=== PATIENT | female | born 1985 | race Caucasian/White ===

== ENCOUNTER 2018-04-29 04:51 | Emergency (ER) | payer OTHER ==
[~2018-04-29] VITALS: Ht 162.6 cm; Wt 87.1 kg
[~2018-04-29 04:51] MED LIST: ACYCLOVIR800 MG; AMLODIPINE BESYL5 MG; CORTISPORIN-TC10 ML OTIC; HYDRALAZINE HCL10 MG PO; HYDROCHLOROTHIA25 MG PO; LABETALOL HCL100 MG PO; ZITHROMAX250 MG PO
[2018-04-29] MEDS ORDERED: PRENATE ELITE1 EAC2 PO (04:57)
[2018-04-29] MEDS ORDERED: TYLOPHEN500 MG PO (04:58)
[2018-04-29] MEDS ORDERED: PENICILLIN V P500 MG PO (05:19)
== END 2018-04-29 05:32 | disposition home or self-care (01) ==
LOC: ED 04:51
DX: K08.89 Other specified disorders of teeth and supporting structures (principal); I10 Essential (primary) hypertension; E11.9 Type 2 diabetes mellitus without complications; Z87.891 Personal history of nicotine dependence; Z79.899 Other long term (current) drug therapy
CPT/HCPCS: 99282

== ENCOUNTER 2018-05-25 16:06 | Emergency (ER) | payer OTHER ==
[~2018-05-25] VITALS: Ht 162.6 cm; Wt 87.1 kg
[~2018-05-25 16:06] MED LIST changes: +PENICILLIN V P500 MG PO; +PRENATE ELITE1 EAC2 PO; +TYLOPHEN500 MG PO
--- OUTSIDE RECORDS SUMMARY | 2018-05-25 16:08 | XMS ---
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 Katie has no Care Guidelines for this patient. [facility] ([facility] MO[facility] NOTE: Visits indicate total known visits. ED/C VISIT TRACKING (12 MO.) [facility]2018 [facility] COMPLAINT: - VAGINAL BLEEDING,5 WKS PREG 04/29/2018 04:51 JUDE Mott [place] TYPE: Emergency COMPLAINT: - POSS TOOTH INFECTION DIAGNOSES: - Other specified disorders of teeth and supporting structures - Essential (primary) hypertension - Type 2 diabetes mellitus without complications - Personal history of nicotine dependence - Other investigator utility bill complaints (current) drug therapy 02/22/2018 08:40 JU[facility] [place] TYPE: Emergency COMPLAINT: - EAR PAIN DIAGNOSES: - Essential (primary) hypertension - Type 2 diabetes mellitus without complications - Otitis media, unspecified, left ear - Other penitentiary (current) drug therapy - Otalgia, left ear INPATIENT VISIT TRACKING (12 MO.) No inpatient visits to display in this time frame [id number]
== END 2018-05-25 17:49 | disposition home or self-care (01) ==
LOC: ED 16:06
DX: N92.0 Excessive and frequent menstruation with regular cycle (principal); I10 Essential (primary) hypertension; E11.9 Type 2 diabetes mellitus without complications; Z88.0 Allergy status to penicillin; Z79.899 Other long term (current) drug therapy
CPT/HCPCS: 81001; 84703; 87077; 87088; 87186; 99284

== ENCOUNTER 2018-12-16 23:04 | Emergency (ER) | payer OTHER ==
[~2018-12-16] VITALS: Ht 162.6 cm; Wt 88.0 kg
[~2018-12-16 23:04] MED LIST changes: +CEPHALEXIN500 MG PO; +TRAMADOL HCL50 MG PO
--- OUTSIDE RECORDS SUMMARY | 2018-12-16 23:08 | XMS ---
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 Care History Medical/Surgical 05/26/2018 [facility] - Patient is currently established with [facility]. If patient is seen in the ED during business hours. Please contact CHWs at [facility]. Care Recommendation: This patient has had 5 or more Emergency Department visits in the last 12 months.\T\nbsp; Patient requires education on the scope and purpose of the ED as an acute care provider not a Primary Care Provider and should not be utilized for chronic conditions.\T\nbsp; These are guidelines and the provider should exercise clinical judgment when providing care. E.D. VISIT COUNT (12 MO.) [address] [facility] TOTAL 5 NOTE: Visits indicate total known visits. ED/UCC VISIT TRACKING (12 MO.) 12/16/2018 23:05 [facility]ott [place] TYPE: Emergency COMPLAINT: - DENTAL ISSUE 12/02/2018 22:35 JU[facility] Mott [place] TYPE: Emergency COMPLAINT: - DENTAL PROBLEM DIAGNOSES: - Other longterm (current) drug therapy - Other specified disorders of teeth and supporting structures - Type 2 diabetes mellitus without complications - Essential (primary) hypertension 05/25/2018 16:06 [facility]ott [place] TYPE: Emergency COMPLAINT: - VAGINAL BLEEDING,5 WKS PREG DIAGNOSES: - Abnormal uterine and vaginal bleeding, unspecified - Type 2 diabetes mellitus without complications - Excessive and frequent menstruation with regular cycle - Allergy status to penicillin - Essential (primary) hypertension - 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 04/29/2018 04:51 [facility] [place] TYPE: Emergency COMPLAINT: - POSS TOOTH INFECTION DIAGNOSES: - Other specified disorders of teeth and supporting structures - Essential (primary) hypertension - Type 2 diabetes mellitus without complications - Personal history of nicotine dependence - Other longterm (current) drug therapy 02/22/2018 08:40 [facility] [place] TYPE: Emergency COMPLAINT: - EAR PAIN DIAGNOSES: - Essential (primary) hypertension - Type 2 diabetes mellitus without complications - Otitis media, unspecified, left ear - Other longterm (current) drug therapy - Otalgia, left ear INPATIENT VISIT TRACKING (12 MO.) No inpatient visits to display in this time frame [id number]
[2018-12-16] MEDS ORDERED: TRAMADOL HCL50 MG PO (23:26)
[2018-12-16] MEDS ORDERED: CEPHALEXIN500 MG PO (23:26)
== END 2018-12-16 23:38 | disposition home or self-care (01) ==
LOC: ED 23:04
DX: K08.89 Other specified disorders of teeth and supporting structures (principal); I10 Essential (primary) hypertension; E11.9 Type 2 diabetes mellitus without complications; Z79.899 Other long term (current) drug therapy
CPT/HCPCS: 99282

== ENCOUNTER 2019-03-27 16:55 | Emergency (ER) | payer OTHER ==
[~2019-03-27] VITALS: Ht 162.6 cm; Wt 77.1 kg
[~2019-03-27 16:55] MED LIST changes: +AMOXICILLIN500 MG PO; +SUDOGEST30 MG PO
--- OUTSIDE RECORDS SUMMARY | 2019-03-27 16:58 | XMS ---
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 Care History Medical/Surgical 05/26/2018 [facility] - Patient is currently established with [facility]. If patient is seen in the ED during business hours. Please contact CHWs at [facility]. Care Recommendation: This patient has had 5 [...] providing care. E.D. VISIT COUNT (12 MO.) [address] [facility] TOTAL 6 NOTE: Visits indicate total known visits. ED/UCC VISIT TRACKING (12 MO.) 03/27/2019 16:57 [facility]ott [place] TYPE: Emergency COMPLAINT: - SINUS ISSUES 03/20/2019 00:46 [facility]ott [place] TYPE: Emergency COMPLAINT: - FACIAL PAIN DIAGNOSES: - Essential (primary) hypertension - Other fci (current) drug therapy - Allergy status to oth drug/meds/biol subst status - Acute sinusitis, unspecified - 1 Type 2 diabetes mellitus without complications 12/16/2018 23:05 [facility]ott [place] TYPE: Emergency COMPLAINT: - DENTAL ISSUE DIAGNOSES: - Essential (primary) hypertension - Other specified disorders of teeth and supporting structures - 1 Type 2 diabetes mellitus without complications - Other note taker (current) drug therapy 12/02/2018 22:35 [facility] [place] TYPE: Emergency COMPLAINT: - DENTAL PROBLEM DIAGNOSES: - Other note taker (current) drug therapy - Other specified disorders of teeth and supporting structures - 1 Type 2 diabetes mellitus without complications - Essential (primary) hypertension 05/25/2018 16:06 [facility]ott [place] TYPE: Emergency COMPLAINT: - VAGINAL BLEEDING,5 WKS PREG DIAGNOSES: - Abnormal uterine and vaginal bleeding, unspecified - 1 Type 2 diabetes mellitus without complications - Excessive and frequent menstruation with regular cycle - Allergy status to penicillin - Essential (primary) hypertension - Other fci (current) drug therapy 04/29/2018 04:[address] [facility] [place] TYPE: Emergency COMPLAINT: - POSS TOOTH INFECTION DIAGNOSES: - Other specified disorders of teeth and supporting structures - Essential (primary) hypertension - 1 Type 2 diabetes mellitus without complications - Personal history of nicotine dependence - Other fci (current) drug therapy INPATIENT VISIT TRACKING (12 MO.) No inpatient visits to display in this time frame [id number]
[2019-03-27] MEDS ORDERED: AMOX TR-K CLV1 EAC1 PO (17:10)
[2019-03-27] MEDS ORDERED: IBU800 MG PO (17:54)
[2019-03-27] MEDS ORDERED: NASAL DECONGEST30 MG PO (17:54)
== END 2019-03-27 18:04 | disposition home or self-care (01) ==
LOC: ED 16:55
DX: J01.90 Acute sinusitis, unspecified (principal); I10 Essential (primary) hypertension; E11.9 Type 2 diabetes mellitus without complications; Z88.8 Allergy status to other drugs, medicaments and biological substances; Z79.899 Other long term (current) drug therapy
CPT/HCPCS: 99283

== ENCOUNTER 2019-05-15 02:50 | Emergency (ER) | payer OTHER ==
[~2019-05-15] VITALS: Ht 162.6 cm; Wt 81.7 kg
[~2019-05-15 02:50] MED LIST changes: +AMOX TR-K CLV1 EAC1 PO; +IBU800 MG PO; +NASAL DECONGEST30 MG PO
[2019-05-15] MEDS ORDERED: AUGMENTIN 875-1 EACH PO (03:30)
== END 2019-05-15 03:51 | disposition home or self-care (01) ==
LOC: ED 02:50
DX: J01.90 Acute sinusitis, unspecified (principal); I10 Essential (primary) hypertension; E11.9 Type 2 diabetes mellitus without complications; Z88.8 Allergy status to other drugs, medicaments and biological substances; Z79.899 Other long term (current) drug therapy
CPT/HCPCS: 99283

== ENCOUNTER 2019-12-09 21:39 | Emergency (ER) | payer OTHER ==
[~2019-12-09] VITALS: Ht 162.6 cm; Wt 86.2 kg
[~2019-12-09 21:39] MED LIST changes: +AUGMENTIN 875-1 EACH PO
[2019-12-09] MEDS ORDERED: PENICILLIN V P500 MG PO (21:59)
[2019-12-09] MEDS ORDERED: NORCO 5-325 TA1 EACH PO (21:59)
== END 2019-12-09 22:11 | disposition home or self-care (01) ==
LOC: ED 21:39
DX: K08.89 Other specified disorders of teeth and supporting structures (principal); I10 Essential (primary) hypertension; E11.9 Type 2 diabetes mellitus without complications; Z88.8 Allergy status to other drugs, medicaments and biological substances
CPT/HCPCS: 99282

== ENCOUNTER 2019-12-20 06:13 | Emergency (ER) | payer OTHER ==
[~2019-12-20] VITALS: Ht 162.6 cm; Wt 86.2 kg
--- OUTSIDE RECORDS SUMMARY | ~2019-12-20 | XMS | Clinical Summary ---
Demographics + + + | Address | [address] | | | [place] [address] | + + + | Home Phone | | + + + | Preferred Language | Unknown | + + + | Marital Status | | + + + | Taoism Affiliation | Unknown | + + + | Race | White | + + + | Ethnic Group | Not or | + + + Author + + + | Author | [facility] | | | and [place] | + + + | Organization | [facility] | | | and [place] | + + + | Address | Unknown | + + + | Phone | Unavailable | + + + Care Team Providers + +------+ + | Care Garment Manufacturer Name | Role | Phone | + +------+ + | Ilya Sethi MD | PCP | | + +------+ + Allergies Not on File Medications Not on file Active Problems Not on file Social History + +-------+ +--------+------+ | Tobacco Use | Types | Packs/Day | Years | Date | | | | | Used | | + +-------+ +--------+------+ | Never Assessed | | | | | + +-------+ +--------+------+ + + + | Sex Assigned at | Date Recorded | | | | + + + | Not on file | | + + + Last Filed Vital Signs Not on file Plan of Treatment + + +-------+ + | Health Maintenance | Due Date | Last | Comments | | | | Done | | + + +-------+ + | Vaccine: | | | | | Dtap/Tdap/Td (1 - | 6 | | | | Tdap) | | | | + + +-------+ + | Cervical Cancer | | | | | Screening (Pap) | 7 | | | + + +-------+ + | Vaccine: Influenza | | | | | (#1) | 0 | | | + + +-------+ + Results Not on filefrom Last 3 Months"
--- OUTSIDE RECORDS SUMMARY | ~2019-12-20 | XMS | Encounter Summary ---
Demographics + + + | Address | [address] | | | [place] [address] | + + + | Home Phone | | + + + | Preferred Language | Unknown | + + + | Marital Status | | + + + | Worship Affiliation | Unknown | + + + | Race | White | + + + | Ethnic Group | Not or | + + + Author + + + | Author | [facility] | | | and [place] | + + + | Organization | [facility] | | | and [place] | + + + | Address | Unknown | + + + | Phone | Unavailable | + + + Care Team Providers + +------+ + | Care Dye Padder Operator Name | Role | Phone | + [...] 2016 | | [address] | MD Taye [address] | | | | | [address] | [address] | | | | | [place] | [place] [address] | | | | | [id number] | [phone] | | | | | [phone] | | | +--------+ + + + [...] | | | pressures of 0-5mmHg. MEASUREMENTS Hairspring Fabrication Supervisor: | | | DBS Authenticated by: Marcos Powell DO Report Date/Time: -- | | | [id number] | | + + + + + [...] venous pressures of 0-5mmHg. | | MEASUREMENTS Hairspring Fabrication Supervisor: DBSAuthenticated by: Marcos Ni | | Date/Time: -- [id number] IMPRESSION: 1. See Dictation. TDS, sinus | [...] | |MEASUREMENTS | | | | | |Hairspring Fabrication Supervisor: DBS | |Authenticated by: Marcos Powell DO | |Report Date/Time: -- [id number] | | | |IMPRESSION: | |1. See [...]
[~2019-12-20 06:13] MED LIST changes: +NORCO 5-325 TA1 EACH PO
--- OUTSIDE RECORDS SUMMARY | 2019-12-20 06:16 | XMS ---
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 - 2 Visits in 30 Days CARE PROVIDERS JEANNA GARCIA [facility] 05/26/2018-Current PHONE: [phone] ALAINA GARDNER Internal Medicine: Pulmonary Disease 12/03/2018-Current PHONE: Unknown Katie has no Care Guidelines for this patient. ERosibel VISIT COUNT (12 MO.) [address] [place] [address] TOTAL 5 NOTE: Visits indicate total known visits. ED/UCC VISIT TRACKING (12 MO.) 12/20/2019 06:13 [facility]ott [place] TYPE: Emergency COMPLAINT: - DENTAL PAIN 12/09/2019 21:40 [facility] [place] TYPE: Emergency COMPLAINT: - DENTAL PAIN DIAGNOSES: - Other specified disorders of teeth and supporting structures - Allergy status to other drugs, medicaments and biological sub - Type 2 diabetes mellitus without complications - Essential (primary) hypertension 05/15/2019 02:51 [facility] [place] TYPE: Emergency COMPLAINT: - SINUS AND MOUTH PAIN DIAGNOSES: - Type 2 diabetes mellitus without complications - Essential (primary) hypertension - Allergy status to other drugs, medicaments and biological sub - Acute sinusitis, unspecified - Other longterm (current) drug therapy 03/27/2019 16:57 [facility] [place] TYPE: Emergency COMPLAINT: - SINUS ISSUES DIAGNOSES: - Type 2 diabetes mellitus without complications - Acute sinusitis, unspecified - Allergy status to other drugs, medicaments and biological sub - Other longterm (current) drug therapy - Chronic sinusitis, unspecified - Essential (primary) hypertension 03/20/2019 00:46 [facility] [place] TYPE: Emergency COMPLAINT: - FACIAL PAIN DIAGNOSES: - Essential (primary) hypertension - Other longterm (current) drug therapy - Allergy status to other drugs, medicaments and biological sub - Acute sinusitis, unspecified - Type 2 diabetes mellitus without complications INPATIENT VISIT TRACKING (12 MO.) No inpatient visits to display in this time frame [id number]
[2019-12-20] MEDS ORDERED: ULTRAM50 MG PO (06:37)
[2019-12-20] MEDS ORDERED: CLEOCIN HCL300 MG PO (06:37)
== END 2019-12-20 06:45 | disposition home or self-care (01) ==
LOC: ED 06:13
DX: K08.89 Other specified disorders of teeth and supporting structures (principal); I10 Essential (primary) hypertension; E11.9 Type 2 diabetes mellitus without complications; Z88.8 Allergy status to other drugs, medicaments and biological substances
CPT/HCPCS: 99282

== ENCOUNTER 2020-02-14 06:53 | Emergency (ER) | payer OTHER ==
[~2020-02-14] VITALS: Ht 162.6 cm; Wt 86.2 kg
[~2020-02-14 06:53] MED LIST changes: +CLEOCIN HCL300 MG PO; +IBUPROFEN200 M1 PO; +TYLENOL325 MG PO; +ULTRAM50 MG PO
[2020-02-14] MEDS ORDERED: PENICILLIN V P500 MG PO (07:30)
== END 2020-02-14 07:41 | disposition home or self-care (01) ==
LOC: ED 06:53
DX: K02.9 Dental caries, unspecified (principal); I10 Essential (primary) hypertension; E11.9 Type 2 diabetes mellitus without complications; Z88.8 Allergy status to other drugs, medicaments and biological substances
CPT/HCPCS: 64400; 99282-25

== ENCOUNTER 2020-02-20 04:23 | Emergency (ER) | payer OTHER ==
[~2020-02-20] VITALS: Ht 162.6 cm; Wt 82.1 kg
--- OUTSIDE RECORDS SUMMARY | ~2020-02-20 | XMS | Encounter Summary ---
Demographics + + + | Address | [address] | | | [place] [address] | + + + | Home Phone | | + + + | Preferred Language | Unknown | + + + | Marital Status | | + + + | Tenriism Affiliation | Unknown | + + + | Race | White | + + + | Ethnic Group | Not or | + + + Author + + + | Author | [facility] [place] | | | and [place] | + + + | Organization | [facility] [place] | | | and [place] | + + + | Address | Unknown | + + + | Phone | Unavailable | + + + Care Team Providers + +------+ + | Care Yard Assistant Name | Role | Phone | + +------+ + | Ilya Sethi MD | PCP | | + +------+ + Encounter Details +--------+ + + + + | Date | Type | Department | Care Team | Description | +--------+ + + + + | 10/03/ | Orders Only | [facility] | Yuriy Muñoz | | | 2016 | | [address] | MD Taey [address] | | | | | [address] | [address] | | | | | [place] | [place] [address] | | | | | [id number] | [phone] | | | | | [phone] | | | +--------+ + + + + Social History + +-------+ +--------+------+ | Tobacco [...] on file | | + + + documented as of this encounter Plan of Treatment Not on filedocumented as of this encounter Procedures + +--------+ + + + | Procedure Name | Priori | Date/Time | Associated Diagnosis | Comments | | | ty | | | | + +--------+ + + + | ECHO INTERPRETATION | Routin | 10/04/2015 | | Results for this | | OF OUTSIDE FILMS | e | 1:59 PM | | procedure are in the | | | | PDT | | results section. | + +--------+ + + + documented in this encounter Results ECHO Interpretation of Outside Films (10/04/2015 1:59 PM PDT) + + | Specimen | + + | | + + + + + | Impressions | Performed At | + + + | 1. See Dictation. TDS, sinus tachycardia. 2. Cardiac chamber | | | dimensions NML. LV hyperdynamic, suggestion of an intra-cavity | | | gradient, unable to assess diastolic function due to tachycardia, LVEF | | | >70%. RV grossly NML. 3. Valves grossly NML. No significant | | | stenosis or regurgitation. 4. No Pericardial effusion. 5. IVC appears | | | NML, inadequate TR to estimate PAP. | | + + + + + + | Narrative | Performed At | + + + | Patient Name: Cheli Adamson Date of : 1985 | | | Performing Physician: Marcos Powell DO | | | | | | INDICATIONS HTN, Kidney Dx CONCLUSIONS | | | 1. See Dictation. TDS, sinus tachycardia. 2. Cardiac chamber | | | dimensions NML. LV hyperdynamic, suggestion of an intra-cavity | | | gradient, unable to assess diastolic function due to tachycardia, LVEF | | | >70%. RV grossly NML. 3. Valves grossly NML. No significant | | | stenosis or regurgitation. 4. No Pericardial effusion. 5. IVC appears | | | NML, inadequate TR to estimate PAP. FINDINGS -------- ECG | | | rhythm: Sinus rhythm. ECG rhythm: Resting tachycardia (HR>100bpm). | | | Study: This was a technically difficult study with suboptimal views. | | | Left Ventricle: Left ventricular systolic function is hyperdynamic | | | with an estimated EF of >70%. Left Ventricle: The left ventricle | | | cavity size is normal. Left Ventricle: Left ventricular wall | | | thickness is normal. Left Ventricle: Cannot assess diastolic function | | | due to tachycardia. Right Ventricle: The right ventricle is normal | | | in size and function. Left Atrium: The left atrium is normal in size. | | | Right Atrium: The right atrium is normal in size. Aortic Valve: The | | | aortic valve is trileaflet, and appears anatomically normal. No | | | aortic stenosis or regurgitation. Mitral Valve: The mitral valve is | | | normal. Mitral Valve: No mitral regurgitation. Tricuspid Valve: The | | | tricuspid valve appears structurally normal. Tricuspid Valve: No | | | regurgitation noted Pulmonic Valve: Pulmonic valve appears | | | structurally normal. Pulmonic Valve: A wave normal. Pericardium: | | | There is no pericardial effusion. IVC/Hepatic Veins: The IVC is small | | | (<1.5cm) and collapses with sniff, consistent with central venous | | | pressures of 0-5mmHg. MEASUREMENTS Forest Fire Prevention Specialist: | | | DBS Authenticated by: Marcos Powell DO Report Date/Time: -- | | | [id number] | | + + + + + | Procedure Note | + + | Frank Smith - 12/18/2018 10:29 PM PDT Patient Name: Marcia of | | : 1985 Performing Physician: Marcos Powell | | DO INDICATIONS H | | TN, Kidney Dx CONCLUSIONS 1. See Dictation. TDS, sinus tachycardia. 2. | | Cardiac chamber dimensions NML. LV hyperdynamic, suggestion of an intra-cavity | | gradient, unable to assess diastolic function due to tachycardia, LVEF >70%. RV grossly | | NML. 3. Valves grossly NML. No significant stenosis or regurgitation. 4. No | | Pericardial effusion. 5. IVC appears NML, inadequate TR to estimate PAP. | | FINDINGS--------ECG rhythm: Sinus rhythm.ECG rhythm: Resting tachycardia | | (HR>100bpm).Study: This was a technically difficult study with suboptimal views.Left | | Ventricle: Left ventricular systolic function is hyperdynamic with an estimated EF of | | >70%.Left Ventricle: The left ventricle cavity size is normal.Left Ventricle: Left | | ventricular wall thickness is normal.Left Ventricle: Cannot assess diastolic function | | due to tachycardia.Right Ventricle: The right ventricle is normal in size and | | function.Left Atrium: The left atrium is normal in size.Right Atrium: The right atrium | | is normal in size.Aortic Valve: The aortic valve is trileaflet, and appears anatomically | | normal. No aortic stenosis or regurgitation.Mitral Valve: The mitral valve is | | normal.Mitral Valve: No mitral regurgitation.Tricuspid Valve: The tricuspid valve | | appears structurally normal.Tricuspid Valve: No regurgitation notedPulmonic Valve: | | Pulmonic valve appears structurally normal.Pulmonic Valve: A wave normal.Pericardium: | | There is no pericardial effusion.IVC/Hepatic Veins: The IVC is small (<1.5cm) and | | collapses with sniff, consistent with central venous pressures of 0-5mmHg. | | MEASUREMENTS Forest Fire Prevention Specialist: DBSAuthenticated by: Marcos Ni | | Date/Time: -- [id number] IMPRESSION: 1. See Dictation. TDS, sinus | | tachycardia. 2. Cardiac chamber dimensions NML. LV hyperdynamic, suggestion of an | | intra-cavity gradient, unable to assess diastolic function due to tachycardia, LVEF | | >70%. RV grossly NML. 3. Valves grossly NML. No significant stenosis or regurgitation. | | 4. No Pericardial effusion. 5. IVC appears NML, inadequate TR to estimate PAP. | |Right Atrium: The right atrium is normal in size. | |Aortic Valve: The aortic valve is trileaflet, and appears anatomically normal. No aortic st enosis or regurgitation. | |Mitral Valve: The mitral valve is normal. | |Mitral Valve: No mitral regurgitation. | |Tricuspid Valve: The tricuspid valve appears structurally normal. | |Tricuspid Valve: No regurgitation noted | |Pulmonic Valve: Pulmonic valve appears structurally normal. | |Pulmonic Valve: A wave normal. | |Pericardium: There is no pericardial effusion. | |IVC/Hepatic Veins: The IVC is small (<1.5cm) and collapses with sniff, consistent with cent ral venous pressures of 0-5mmHg. | | | |MEASUREMENTS | | | | | |Forest Fire Prevention Specialist: DBS | |Authenticated by: Marcos Powell DO | |Report Date/Time: -- [id number] | | | |IMPRESSION: | |1. See Dictation. TDS, sinus tachycardia. 2. Cardiac chamber dimensions NML. LV hyperdyna greg, suggestion of an intra-cavity gradient, unable to assess diastolic function due to tach ycardia, LVEF >70%. RV grossly NML. 3. Valves grossly NML. No | |significant stenosis or regurgitation. 4. No Pericardial effusion. 5. IVC appears NML, inad equate TR to estimate PAP. | + + documented in this encounter Visit Diagnoses Not on filedocumented in this encounter"
--- OUTSIDE RECORDS SUMMARY | ~2020-02-20 | XMS | Clinical Summary ---
Demographics + + + | Address | [address] | | | [place] [address] | + + + | Home Phone | | + + + | Preferred Language | Unknown | + + + | Marital Status | | + + + | Yazidism Affiliation | Unknown | + + + | Race | White | + + + | Ethnic Group | Not or | + + + Author + + + | Author | [facility] | | | and [place] | + + + | Organization | [facility] | | | and [place] | + + + | Address | Unknown | + + + | Phone | Unavailable | + + + Care Team Providers + +------+ + | Care In Classroom Tutor Name | Role | Phone | + [...]
--- OUTSIDE RECORDS SUMMARY | 2020-02-20 04:26 | XMS ---
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 - 2 Visits in 30 Days CARE PROVIDERS JEANNA GARCIA [facility] 05/26/2018-Current PHONE: [phone] ALAINA GARDNER Internal Medicine: Pulmonary Disease 12/03/2018-Current PHONE: Unknown Katie has no Care Guidelines for this patient. Care History Medical/Surgical 12/28/2019 [facility] - CHW CONTACTED [facility]- [facility]- DISCUSSED URGENT NEED FOR DENTAL FOLLOW UP - PATIENT APT WAS MOVED UP TO Saturday12/30/2019 @ 9:45AM. - CHW CALLED AND LEFT PATIENT A MESSAGE. - IF PATIENT HAS AN EMERGENCY DENTAL CONCERN - EMERGENCY DENTAL CONTACT NUMBER IS [phone]. 12/21/2019 [facility] - PATIENT HAS AN APT WITH A DENTAL PROVIDER -[facility] 01/05/2020 @ 1: 00PM. E.D. VISIT COUNT (12 MO.) 8 JUDE Strange TOTAL 8 NOTE: Visits indicate total known visits. ED/UCC VISIT TRACKING (12 MO.) 02/20/2020 04:23 [facility]ott [place] TYPE: Emergency COMPLAINT: - DENTAL PAIN 02/14/2020 06:54 [facility] Mott [place] TYPE: Emergency COMPLAINT: - DENTAL PAIN DIAGNOSES: - Type 2 diabetes mellitus without complications - Essential (primary) hypertension - Other specified disorders of teeth and supporting structures - Allergy status to other drugs, medicaments and biological sub - Dental caries, unspecified 12/27/2019 03:14 [facility] Lewis [place] TYPE: Emergency COMPLAINT: - DENTAL PAIN DIAGNOSES: - [place] [facility] drug therapy - Other specified disorders of teeth and supporting structures - Type 2 diabetes mellitus without complications - Dental caries, unspecified - Allergy status to other drugs, medicaments and biological sub - Essential (primary) hypertension 12[facility]20/2019 06[facility] COMPLAINT: - DENTAL PAIN DIAGNOSES: - Allergy status to other drugs, medicaments and biological sub - Type 2 diabetes mellitus without complications - Other specified disorders of teeth and supporting structures - Essential (primary) hypertension 12/09/2019 21:40 [facility] COMPLAINT: - DENTAL PAIN [...] sub - Acute sinusitis, unspecified - Other [place] [facility] (current[facility] drug therapy 03/27/2019 16:57 [facility]ott [place] TYPE: Emergency COMPLAINT: - SINUS ISSUES DIAGNOSES: - Type 2 diabetes mellitus without complications - Acute sinusitis, unspecified - Allergy status to other drugs, medicaments and biological sub - 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
== END 2020-02-20 04:57 | disposition home or self-care (01) ==
LOC: ED 04:23
DX: K08.89 Other specified disorders of teeth and supporting structures (principal); I10 Essential (primary) hypertension; E11.9 Type 2 diabetes mellitus without complications; Z88.8 Allergy status to other drugs, medicaments and biological substances; Z79.899 Other long term (current) drug therapy
CPT/HCPCS: 64400; 99282-25

== ENCOUNTER 2020-03-13 06:53 | Emergency (ER) | payer OTHER ==
[~2020-03-13] VITALS: Ht 162.6 cm; Wt 82.1 kg
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
== END 2020-03-13 07:50 | disposition home or self-care (01) ==
LOC: ED 06:53
DX: S39.012A Strain of muscle, fascia and tendon of lower back, initial encounter (principal); S20.219A Contusion of unspecified front wall of thorax, initial encounter; S80.01XA Contusion of right knee, initial encounter; I10 Essential (primary) hypertension; E11.9 Type 2 diabetes mellitus without complications; Z88.8 Allergy status to other drugs, medicaments and biological substances; Z79.899 Other long term (current) drug therapy; V47.9XXA Unspecified car occupant injured in collision with fixed or stationary object in traffic accident, initial encounter
CPT/HCPCS: 99283

== ENCOUNTER 2020-09-11 05:40 | Emergency (ER) | payer OTHER ==
[~2020-09-11] VITALS: Ht 162.6 cm; Wt 82.1 kg
[2020-09-11] MEDS ORDERED: HYDROCHLOROTHIA25 MG (05:53)
[2020-09-11] MEDS ORDERED: ALOGLIPTIN25 MG PO (05:53)
[2020-09-11] MEDS ORDERED: METOPROLOL SUC100 MG PO (05:54)
[2020-09-11] MEDS ORDERED: PENICILLIN V P500 MG PO (06:09)
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
== END 2020-09-11 06:28 | disposition home or self-care (01) ==
LOC: ED 05:40
DX: K02.9 Dental caries, unspecified (principal); I10 Essential (primary) hypertension; E11.9 Type 2 diabetes mellitus without complications; Z87.891 Personal history of nicotine dependence; Z88.8 Allergy status to other drugs, medicaments and biological substances; Z79.899 Other long term (current) drug therapy
CPT/HCPCS: 99282

== ENCOUNTER 2020-09-11 08:26 | Emergency (ER) | payer OTHER ==
[~2020-09-11] VITALS: Ht 162.6 cm; Wt 82.1 kg
[~2020-09-11 08:26] MED LIST changes: +ALOGLIPTIN25 MG PO; +HYDROCHLOROTHIA25 MG; +METOPROLOL SUC100 MG PO
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
== END 2020-09-11 08:53 | disposition home or self-care (01) ==
LOC: ED 08:26
DX: K08.89 Other specified disorders of teeth and supporting structures (principal); I10 Essential (primary) hypertension; E11.9 Type 2 diabetes mellitus without complications; Z87.891 Personal history of nicotine dependence; Z88.8 Allergy status to other drugs, medicaments and biological substances; Z79.899 Other long term (current) drug therapy
CPT/HCPCS: 64400; 99282-25

== ENCOUNTER 2021-04-18 00:46 | Inpatient (IN) | payer OTHER ==
[~2021-04-18] VITALS: Ht 162.6 cm; Wt 77.5 kg
[~2021-04-18 00:46] MED LIST changes: -HYDROCHLOROTHIA25 MG
--- OUTSIDE RECORDS SUMMARY | 2021-04-18 00:48 | XMS ---
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 Care History Medical/Surgical 02/22/2020 [facility] Recommendation: - PLEASE REVIEW PDMP ON THE [place]AT[place] - USE EXTREME CAUTION IN GIVING NARCOTICS. - Avoid Discharge Narcotic prescriptions if at all possible. Physician discretion. [facility]ER LEFT A MESSAGE FOR A RETURN CALL. 12/28/2019 [facility]CUSS[facility] URGENT NEED FOR DENTAL FOLLOW UP - PATIENT APT WAS MOVED UP TO Saturday12/30/2019 @ 9:45AM. - CHW CALLED AND LEFT PATIENT A MESSAGE. - IF PATIENT HAS AN EMERGENCY DENTAL CONCERN - EMERGENCY DENTAL CONTACT NUMBER IS [phone]. E.D. VISIT COUNT (12 MO.) 3 [facility]. TOTAL 3 NOTE: Visits indicate total known visits. 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 09/11/2020 05:41 [facility] [place] [facility] [place] TYPE: Emergency COMPLAINT: - LEFT TOOTH PAIN DIAGNOSES: - Essential (primary) hypertension - Other specified disorders of teeth and supporting structures - Type 2 diabetes mellitus without complications - Dental caries, unspecified - Allergy status to other drugs, medicaments and biological substances - Personal history of nicotine dependence - Other nursing home (current) drug therapy INPATIENT VISIT TRACKING (12 MO.) No inpatient visits to display in this time frame [email or web address]
[2021-04-18] MEDS ORDERED: LOSARTAN POTAS100 MG PO (01:35)
[2021-04-18] MEDS ORDERED: GLUCOTROL XL5 MG PO (01:36)
[2021-04-18] MEDS ORDERED: PREDNISONE20 MG PO (02:31)
[2021-04-18] MEDS ORDERED: ZITHROMAX250 MG PO (02:31)
[2021-04-18] MEDS ORDERED: BENZONATATE100 MG PO (02:33)
--- NOTE | 2021-04-18 05:26 | NUR ---
PT ARRIVED TO THE CCU AT 0357 VIA STRETCHER. PT IV VANCOMYCIN AND INSULIN DRIP INFUSING AT THIS TIME. PT'S BELONGINGS PRESENT WITH PT. DRAW SHEETS USED TO SLIDE PT ONTO THE CCU BED. VITALS TAKEN AT THIS TIME, PT AFEBRILE. PT NOTED TO BE DROWSY AND AWAKES TO VOICE. PT ORIENTED TO SELF, LOCATION, AND TIME. CELLULITS VISUALIZED IN RIGHT GLUTEUS/RECTUM AND WAS OUTLINED. SCHEDULED PO MEDICATION ADMINISTERED, ADDITIONAL SCHEDULED IV VANCOMYCIN STARTED WITH LR BOLUS TO FOLLOW AFTERWARDS. CBG ASSESSED AND WAS 355, IV INSULIN LEFT AT RATE OF 6 UNITS/HR. PT REPORTS 6/10 PAIN IN HER HIPS, PRN TORADOL ADMINISTERED AT THIS TIME. PT REPORTS NO FURTHER NEEDS AT THIS TIME WHEN ASKED, LR BOLUS AND MAINTENANCE IVF TO BE STARTED AFTER VANCO IS FINISHED INFUSING. 3RD IV TO BE STARTED, CALL LIGHT IN REACH, BED IN LOWEST POSITION, WILL CONTINUE PLAN OF CARE.
--- NOTE | 2021-04-18 05:42 | NUR ---
PT LAYING IN BED RESTING AT THIS TIME. RANDAL ORTEGA CHECKED CBG AND WAS 381, INSULIN DRIP INCREASED FROM 6 TO 9 UNITS/HR. PT REPORTS NO FURTHER NEEDS AT THIS TIME, IV VANCO INFUSING ORDERED, BOLUS TO BE GIVEN AFTERWARDS ALONG WITH MAINTENANCE IVF (SEE MAR). RANDAL ORTEGA IN ROOM WITH PT TO ATTEMPT TO PUT IN A 3RD IV. PT REPORTS NO FURTHER NEEDS AT THIS TIME, WILL CONTINUE PLAN OF CARE. CALL LIGHT IN REACH, BED IN LOWEST POSITION.
--- NOTE | 2021-04-18 06:19 | NUR ---
PT RESTING IN BED AT THIS TIME SLEEPING. INSULIN DRIP INFUSING AT PREVIOUS RATE, IV VANCO COMPLETE, LR BOLUS NOW INFUSING AT ORDERED RATE. RN MARY UNABLE TO INSERT 3RD IV. WILL ADMINISTER MAINTENANCE IVF AFTER BOLUS IS COMPLETE. PT REPORTS NO FURTHER NEEDS AT THIS TIME AND RETURNED BACK TO SLEEP. CALL LIGHT IN REACH, BED IN LOWEST POSITION, WILL CONTINUE PLAN OF CARE.
--- NOTE | 2021-04-18 06:42 | NUR ---
PT SLEEPING IN BED AT THIS TIME, LR BOLUS INFUSING. CBG ASSESSED AND WAS 380, INSULIN DRIP LEFT AT 9 UNITS/HR PER PROTOCOL. PT IN NO APPARRENT DISTRESS AT THIS TIME AND AWOKE BRIEFLY WHILE ASSESSING CBG. NO FURTHER NEEDS REPORTED, WILL CONTINUE PLAN OF CARE. CALL LIGHT IN REACH, BED IN LOWEST POSITION.
--- NOTE | 2021-04-18 07:47 | NUR ---
IN PATIENT'S ROOM FOR HOURLY CBG, WHICH WAS 322. INSULIN GTT TITRATED DOWN TO 7.5 UNITS/HR. ASSESSMENT COMPLETE. PATIENT ASKS THIS RN FIRST THING, "WHEN WILL I BE ABLE TO GO HOME TODAY?" DISCUSSED THIS AT LENGTH WITH PATIENT. PT ON THE PHONE WITH SOMEONE. PT STATES SHE IS CONCERNED ABOUT HOW HER SPOUSE WILL GET TO WORK AND WHO WILL WATCH THE KIDS WHILE HE IS GONE. DISCUSSED WITH PATIENT HER CURRENT DIAGNOSIS, INSULIN GTT, UPCOMING LAB DRAW, ETC. PATIENT SHOWING UNDERSTANDING. PT IS VERY PALE AND STATES SHE WASN'T EATING FOR 10 DAYS, JUST DRINKIN G WATER AND BODY ARMOR DRINKS. IVF ARE NS W/40 KCL AT 200 ML/HR AT THIS TIME. IV SITE IN LEFT AC AND R HAND WORKING WELL. CELLULITIS ON RIGHT GLUTEAL AREA ASSESSED AND IS VERY TENDER TO TOUCH, ALL THE WAY TO HIP BONE AND VISIBALLY SWOLLEN. PT REMAINS ON LEFT SIDE WITH PILLOW BEHIND FOR SUPPORT. WILL CONTINUE TO MONITOR CLOSELY.
--- NOTE | 2021-04-18 08:36 | NUR ---
cbg 310- INSULIN GTT REMAINS AT 7.5 UNITS/HR. LAB UNABLE TO COLLECT ALL THE BLOOD THEY NEED SO THIS RN TO TRY.
--- NOTE | 2021-04-18 09:00 | NUR ---
Spoke with pt and her spouse Mason. Pt is tired and sleeps through most our conversation. Mason states they live in a 2 story home and pt has staying on main floor due to pain in her buttock. Pt works out of the home 2 days a week for [employer]. Pt does not use any DME. Pt is concerned about spouse not working today. Spouse denies financial issues. He is aware of [facility] and states they do not qualify for their services. Pt plans on dc to home with spouse on discharge.
--- NOTE | 2021-04-18 09:06 | EKG ---
[facility] [address] [place], [place] [address] Signed Sinus tachycardia Possible Inferior infarct , age undetermined ST \T\ T wave abnormality, consider lateral ischemia Abnormal ECG No previous ECGs available Confirmed by CARO SMITH MD ([id number]) on 04/18/2021 9:05:45 AM Electronically Signed By: CARO SMITH MD 04/18/21905 PATIENT NAME: ANNAMARIA HERNANDEZNICOLÁS PALMERE Electrocardiogram DATE OF : 89 PHYSICIAN: CARO SMITH MD REPORT #: [id number] REPORT IS CONFIDENTIAL AND NOT TO BE RELEASED WITHOUT AUTHORIZATION
--- NOTE | 2021-04-18 09:39 | NUR ---
DR. SMITH IN TO SEE PATIENT. PLAN OF CARE BEING DISCUSSED. CRITICAL VALUE OF CO2 OF 6 RECEIVED FROM LAB AND REPORTED TO DR. SMITH. CBG 259 AND INSULIN GTT TURNED DOWN TO 6.3 UNITS/HR. ONCE CBG <200, IVF WILL BE CHANGED TO D5NS WITH 40 KCL @ 200 ML/HR. PT'S YUNIOR IN ROOM. PT'S GLUTEAL AREA OUTLINED WITH PEN. AREA IS VERY SORE, AND CAN HARDLY BE TOUCHED.
[2021-04-18] MEDS ORDERED: KETOROLAC TROMET5 M1 OPTH (10:40)
[2021-04-18] MEDS ORDERED: OFLOXACIN5 M1 OP (10:41)
[2021-04-18] MEDS ORDERED: PREDNISOLONE ACE5 ML OPTH (10:42)
--- NOTE | 2021-04-18 10:42 | NUR ---
PATIENT HELPED TO SIT UP IN BED AND ATTEMPTED TO TAKE POTASSIUM PILLS, BUT VERY STRONG GAG REFELX AND PATIENT UNABLE TO TAKE THE PILLS AT THIS TIME. WILL UPDATE DR. SMITH. CONTINUE TO MONITOR.
--- NOTE | 2021-04-18 10:43 | NUR ---
CBG 243 AT 1030 AND INSULIN GTT TITRATED DOWN TO 5.1 UNITS/HR.
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
--- NOTE | 2021-04-18 14:03 | NUR ---
RANDAL SUN REQUESTED I NOT VISIT PT AT THIS TIME. HER ANXIETY IS ELEVATED AND RN PREFERS PT TO REST AT THIS TIME. WILL FOLLOW NEEDED
--- NOTE | 2021-04-18 16:40 | NUR ---
DISCUSSED PATIENT'S IVF WITH DR. SMITH. 1 LITER OF NS WITH 40 KCL IS NOW INFUSING AT 200 ML/HR, ALONGSIDE WITH PATIENT'S IV VANCO, WHICH IS MIXED IN D5, INFUSING AT 267 ML/HR. PATIENT'S NEXT BLOOD DRAW IS DUE AT 1999. PATIENT STATES SHE IS FEELING HOT, AND ALL COVERS REMOVED FOR HER. PATIENT ALSO PROVIDED WITH A FAN FOR HER BEDSIDE. PATIENT'S SONUAND CALLED AND GIVEN AN UPDATE.
--- NOTE | 2021-04-18 17:31 | NUR ---
CBG 271 - INSULIN GTT REMAINS AT 14.7 UNITS/HR AT THIS TIME. PT GIVEN PRN TORADOL EARLIER. IV VANCO NOW FINSIHED AND NS WITH 40 KCL INFUSING AT 200 ML/HR.
--- NOTE | 2021-04-18 19:31 | NUR ---
REPORT RECEIVED FROM KRISTOFER RN, WILL CONTINUE PLAN OF CARE.
--- NOTE | 2021-04-18 20:05 | NUR ---
PT LAYING IN BED AT THIS TIME SLEEPING. PT AWAKES EASILY IS ORIENTED X3 BUT DROWSY. INSULIN DRIP INFUSING AT 11.9 U/HR, IV KCl + NS MAINTENANCE IVF INFUSING AT 200ML/HR ORDERED. PT CBG ASSESSED AT THIS TIME AND WAS 254, INSULIN DRIP CHANGED TO 16.8 UNITS/HR PER PROTOCOL. VITALS THEN TAKEN AND PATIENT ASSESSED (SEE CHART). LABS THEN DRAWN FROM PT'S RIGHT AC IV AND SENT TO LAB. PT STILL RESTING IN BED AT THIS TIME WITH HER EYES CLOSED. SHE REPORTS NO FURTHER NEEDS WHEN ASKED AT THIS TIME AND RETURNED BACK TO SLEEP, WILL CONTINUE PLAN OF CARE. CALL LIGHT IN REACH, BED IN LOWEST POSITION, KISER DRAINING, IVF INFUSING AT ORDERED RATE.
--- NOTE | 2021-04-18 20:40 | NUR ---
PT LAYING IN BED SLEEPING AT THIS TIME AND IN NO APPARENT DISTRESS. PT INFORMED ABOUT HER CBG BEING CHECKED, CBG ASSESSED AND WAS 190. INSULIN DRIP DECREASED TO 11.2 UNITS/HR PER PROTOCOL, MAINTENANCE IVF ALSO CHANGED TO D5NS + 20KCl AT 200ML/HR PER PHYSICIAN ORDERS. PT REPORTS NO FURTHER NEEDS AT THIS TIME WHEN ASKED AND RETURNED TO SLEEP, WILL CONTINUE PLAN OF CARE. CALL LIGHT IN REACH, BED IN LOWEST POSITION.
--- NOTE | 2021-04-18 20:45 | NUR ---
DR. SMITH INFORMED THIS RN ON NEW ORDERS FOR THE PT. MAINTENANCE IVF CHANGED TO D5NS + 40K AT 200MLS/HR AND 40 MEQ OF PO POTASSIUM ORDERED WELL. WILL CONTINUE PLAN OF CARE AND ADMINISTER ORDERED MEDICATIONS.
--- NOTE | 2021-04-18 21:13 | NUR ---
PT SLEEPING IN BED. PT AWOKE EASILY AND WAS INFORMED THAT SHE HAD PO POTASSIUM (SEE MAR) TO TAKE. PT STATES DECLINED TO TAKE PO MEDICATION AT THIS TIME SHE WILL FEEL TOO NAUSEOUS. PT REPORTS NO FURTHER NEEDS AT THIS TIME, IVF INFUSING AT PREVIOUS RATES. DR. SMITH UPDATED VIA PHONE, NEW ORDERS GIVEN TO CHANGE RATE OF D5NS+40KCL TO 250MLS/HR. WILL CONTINUE PLAN OF CARE AND ADMINISTER MEDICATION AT ORDERED RATE.
--- NOTE | 2021-04-18 21:36 | NUR ---
PT SLEEPING IN BED AT THIS TIME IVF AND INSULIN DRIP INFUSING AT PREVIOUS RATES. CBG ASSESSED AND WAS 190, INSULIN DRIP UNCHANGED PER PROTOCOL AND LEFT AT 11.2 UNITS/HR. PT REPORTS NO FURTHER NEEDS AT THIS TIME, WILL CONTINUE PLAN OF CARE.
--- NOTE | 2021-04-18 21:48 | NUR ---
PT SLEEPING IN BED AT THIS TIME, IVF INFUSING AT PREVIOUS RATES. D5NS + 40KCL STARTED AT ORDERED RATE OF 250MLS/HR AT THIS TIME. PT REPORTS NO FURTHER NEEDS AT THIS TIME WHEN ASKED, WILL CONTINUE PLAN OF CARE.
--- NOTE | 2021-04-18 22:53 | NUR ---
PT SLEEPING IN BED AT THIS TIME AND AWOKE EASILY. PT CBG ASSESSED AND WAS 180, INSULIN DRIP TITRATED TO 9.6 UNITS/HR PER PROTOCOL. D5NS+40KCL INFUSING AT PREVIOUS RATE. PT REPORTS 6/10 HIP PAIN AT THIS TIME WHEN ASKED, PO TYLENOL DECLINED, PT STATED SHE WOULD TAKE TORADOL.15MG PRN TORADOL ADMINISTERED AT THIS TIME. PT BECAME AGITATED AND BEGAN TO CRY AFTERWARDS STATING SHE WAS OVERWHELMED FROM ALL THE ASSESSMENTS AND IV FLUIDS. PT CALMED DOWN AFTER SOME TIME AND ANSWERING QUESTIONS AND RETURNED BACK TO SLEEP. PT REPORTS NO FURTHER NEEDS AT THIS TIME, WILL CONTINUE PLAN OF CARE. CALL LIGHT IN REACH, BED IN LOWEST POSITION.
--- NOTE | 2021-04-18 23:55 | NUR ---
PT IN BED AWAKE AT THIS TIME AND WAS MOANING OUT IN PAIN. PT STATED SHE WAS TRYING TO REPOSITION HERSELF BUT STATED IT WAS PAINFUL. RN JARAD IN TO ASSIST IN REPOSITIONING PT ONTO HER LEFT SIDE, PILLOWS PLACED UNDERNEATH FOR COMFORT. PT CBG THEN ASSESSED AND WAS 199, NEW INSULIN BAG PLACED AND DRIP INCREASED TO 12.6 U/HR. PRN 15MG TORADOL ADMINISTERED AT THIS TIME WELL TO INCREASE MEDICATION TO MAX PRN DOSE FOR PT'S PAIN. PT VITALS TAKEN AT THIS TIME AND PT ASSESSED. PT REPORTS STILL FEELING WEAK AND REPORTS HER FRUSTRATION AND ANXIETY OF BEING IN THE HOSPITAL AND MISSING HER FAMILY. COLD WASHCLOTH PLACED OVER THE PT'S FOREHEAD PER HER REQUEST SHE FELT HOT, TEMPERATURE IN ROOM ALSO DECREASED PER HER REQUEST. PT REPORTS NO FURTHER NEEDS AT THIS TIME AND STATES SHE WILL TRY TO REST. WILL CONTINUE PLAN OF CARE. CALL LIGHT IN REACH, BED IN LOWEST POSITION, IVF INFUSING AT PREVIOUS RATE, KISER IN PLACE AND DRAINING URINE.
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
--- NOTE | 2021-04-19 00:38 | NUR ---
PT LAYING IN BED AWAKE AT THIS TIME ON HER PHONE. IV INSULIN AND IVF INFUSING AT PREVIOUS RATE. PT ASKED IF SHE WANTED HER PRN ATIVAN FOR ANXIETY, PT STATED YES. PT ALSO REPORTS THAT HER PAIN HIP PAIN HAS IMPROVED AND IS NOW AT A TOLERABLE LEVEL. 1MG PRN ATIVAN ADMINISTERED AT THIS TIME FOR PT'S ANXIETY. CBG ASSESSED AFTERWARDS AND WAS 206, INSULIN DRIP INCREASED TO 14 UNITS/HR PER PROTOCOL. PT REPORTS NO FURTHER NEEDS AT THIS TIME WHEN ASKED AND IS LAYING IN BED RESTING. CALL LIGHT IN REACH, BED IN LOWEST POSITION, WILL CONTINUE PLAN OF CARE.
--- NOTE | 2021-04-19 01:39 | NUR ---
PT SLEEPING IN BED AT THIS TIME, IVF AND INSULIN INFUSING AT PREVIOUS RATE. PT AWOKE BRIEFLY AND WAS INFORMED THAT HER CBG WOULD BE ASSESSED. CBG OF 197 OBTAINED, INSULIN LEFT AT 14 UNITS/HR PER PROTOCOL. PT REPORTS NO FURTHER NEEDS AT THIS TIME WHEN ASKED AND DENIES HAVING ANY PAIN AT THIS TIME. PT RETURNED BACK TO SLEEP AFTERWARDS. CALL LIGHT IN REACH, BED IN LOWEST POSITION, WILL CONTINUE PLAN OF CARE.
--- NOTE | 2021-04-19 02:00 | NUR ---
BLOOD DRAWN FROM RIGHT AC IV SITE FOR SCHEDULED LABS. PT STIRRED A LITTLE WHILE I WAS IN ROOM, BUT FELL ASLEEP AGAIN. CALL LIGHT WITHIN REACH.
--- NOTE | 2021-04-19 02:45 | NUR ---
PT LAYING IN BED SLEEPING AT THIS TIME. PT AWOKE BRIEFLY DURING THIS TIME BUT IS STILL DROWSY AND RETURNED BACK TO SLEEP AFTER BEING INFORMED THAT A CBG WOULD BE CHECKED. CBG OF 187 OBTAINED, INSULIN DRIP TITRATED DOWN TO 12 UNITS/HR. D5NS + 20K STILL INFUSING AT 250MLS/HR. PT PROVIDED WITH A WARM BLANKET PER HER REQUEST AND REPORTS NO FURTHER NEEDS WHEN ASKED. DR. SMITH CALLED AFTERWARDS AND UPDATED ON PT REGARDING 0200 LAB DRAW WHICH INCLUDED VBG PH, CRITICAL LAB VALUE FOR CO2 OF 11, AND POTASSIUM OF 3.6. DR SMITH ALSO UPDATED ON PT'S VITALS AND DECREASED URINE OUTPUT. ORDERS GIVEN TO ADMINISTER ANOTHER BAG OF D5NS + 40KCL AT 250 MLS/HR, WILL CONTINUE PLAN OF CARE.
--- NOTE | 2021-04-19 03:02 | NUR ---
PT LAYING IN BED SLEEPING AT THIS TIME, IVF INFUSING AT PREVIOUS RATES. IV VANCOMYCIN STARTED AT THIS TIME AND IS NOW INFUSING AT ORDERED RATE. PT IN NO APPARENT DISTRESS AND REMAINED ASLEEP AT THIS TIME, WILL CONTINUE PLAN OF CARE. CALL LIGHT IN REACH, BED IN LOWEST POSITION.
--- NOTE | 2021-04-19 03:44 | NUR ---
PT LAYING IN BED SLEEPING AT THIS TIME AND IN NO APPARENT DISTRESS. VANCOMYCIN AND INSULIN DRIP INFUSING AT PREVIOUS RATES. NEW BAG OF D5NS + 40KCL HUNG AND WILL INFUSE AFTER THE VANCOMYCIN IS COMPLETED. PT STILL DROWSY AT THIS TIME AND AWOKE BRIEFLY WHEN INFORMED ABOUT A CBG CHECK AND RETURNED TO SLEEP. CBG OF 167 OBTAINED, INSULIN DRIP LEFT AT 12 UNITS/HR PER PROTOCOL. ASSESSMENT THEN COMPLETED AT THIS TIME. LUNGS CLEAR, BOWEL TONES ACTIVE, STRONG PULSES PRESENT. NO FURTHER NEEDS ASSESSED AT THIS TIME, PT SLEEPING IN BED, WILL CONTINUE PLAN OF CARE. CALL LIGHT IN REACH, BED IN LOWEST POSITION.
--- NOTE | 2021-04-19 04:33 | NUR ---
PT LAYING IN BED SLEEPING AT THIS TIME, INSULIN DRIP AND VANCO INFUSING AT PREVIOUS RATES. CBG ASSESSED AT THIS TIME AND WAS 128, INSULIN DRIP DECREASED TO 6.3 UNITS/HR PER PROTOCOL. PT AWOKE BRIEFLY DURING CBG CHECK AND IS STILL DROWSY/LETHARGIC. PT RETURNED BACK TO SLEEP SHORTLY AFTER. NO FURTHER NEEDS ASSESSED AT THIS TIME, PT SLEEPING, CALL LIGHT IN REACH, BED IN LOWEST POSITION, KISER DRAINING, WILL CONTINUE PLAN OF CARE.
--- NOTE | 2021-04-19 05:36 | NUR ---
PT LAYING IN BED SLEEPING AND AWOKE WHEN THIS RN ENTERED THE ROOM. PT STILL DROWSY BUT ORIENTED. PT DENIES HAVING ANY PAIN AT THIS TIME BUT REQUESTED WARM BLANKETS. WARM BLANKETS PROVIDED AT THIS TIME TO THE PT. CBG THEN ASSESSED AND WAS 141. INSULIN DRIP INCREASED TO 8.1 UNITS/HR PER PROTOCOL. VANCOMYCIN COMPLETED D5NS + 50KCL NOW INFUSING AT ORDERED RATE (SEE MAR). PT REPORTS NO FURTHER NEEDS WHEN ASKED AND RETURNED BACK TO SLEEP, WILL CONTINUE PLAN OF CARE.
--- NOTE | 2021-04-19 06:38 | NUR ---
PT SLEEPING AT THIS TIME AND AWOKE DURING CBG CHECK. CBG WAS 157, INSULIN DRIP TITRATED UP TO 9 UNITS/HR PER PROTOCOL. IV D5NS + 40KCL INFUSING ORDERED. PT REPORTS NO FURTHER NEEDS AT THIS TIME WHEN ASKED AND RETURNED BACKT TO SLEEP, WILL CONTINUE PLAN OF CARE. CALL LIGHT IN REACH, BED IN LOWEST POSITION.
--- NOTE | 2021-04-19 08:19 | NUR ---
IN PATIENT'S ROOM FOR ASSESSMENT, MEDS, AND VITALS. PATIENT'S HR IN THE 140s. PT IS NOTED TO BE SHIVERING. ORAL TEMP IS 98.7, TEMPORAL IS 100.1, AND AXILLARY IS 101.3. PT GIVEN 30 MG IV TORADOL DUE TO NOT BEING ABLE TO TAKE PILLS VERY WELL AT THIS TIME. DR. SMITH CALLED AND NOTIFIED OF FEVER AND ORDER REC'D FOR BLOOD CULTURES. AM LABS DRAWN FROM IV SITE IN RIGHT AC. LAB NOW IN ROOM FOR 2ND SET OF BLOOD CULTURES. CBG 184 AT 0730 AND INSULIN GTT TITRATED TO 10.8 UNITS/HR. IVF CONTINUE AT 250 ML/HR, WHICH ARE D5 NS WITH 40 KCL. IV ROCEPHIN STARTED. PATIENT MORE CONVERSIVE THIS AM BUT STILL WITHDRAWN AND NOT VERY INTERACTIVE. BP THIS AM IS 99/66. ZAKIA'S WANTING TO COME VISIT TODAY BUT DOES HAVE HIS TWO CHILDREN THAT HE STATES HE CANNOT LEAVE AT HOME. WILL CONTINUE TO MONITOR.
--- NOTE | 2021-04-19 08:36 | NUR ---
PATIENT ALLOWED LAB TO ATTEMPT TO DRAW BLODO CULTURES, BUT WHEN SHE WAS POKED, SHE IMMEDIATELY PULLED HAND BACK. LAB UNABLE TO COLLECT BLOOD CULTURE. PATIENT SCREAMING AT STAFF, "GET THAT FUCKING NEEDLE OUT OF MY ARM! YOU HAVE BEEN POKING AND POKING ME SO GOD DAMN MUCH! LADY IF YOU DONT GET THAT FUCKING NEEDLE OUT OF MY HAND I'M GOING TO RIP MY HAND AWAY." ATTEMPTED TO CALM PATIENT AND EXPLAIN AGAIN REASONING FOR REPEAT BLOOD CULTURES, BUT PATIENT UNWILLING TO ALLOW STAFF TO TRY FOR A SECOND SET OF BLOOD CULTURES AT THIS TIME. WILL UPDATE MD. HR DOWN TO 120s. CBG AT 0830 164 AND INSULIN GTT REMAINS AT 10.8 UNITS/HR. PT COVERED WITH A LIGHT SHEET BUT HEAVY BLANKETS REMOVED THAT WERE COVERING PATIENT. HAVE NOT ASSESSED PATIENT'S GLUTEAL AREA YET BUT WILL WHEN MD ROUNDS ON PATIENT. PROPEL ORDERED FOR PATIENT.
--- NOTE | 2021-04-19 09:20 | NUR ---
DR. SMITH IN TO SEE PATIENT. PATIENT NOT VERY INTERACTIVE WITH ASSESSMENT AND CAN HARDLY ROLL OVER TO HAVE BACK SIDE ASSESSED. PATIENT VERY UNCOMFORTABLE WITH ANY MOVEMENT. IVF NOW INFUSING AT 125 ML/HR. CONTINUE TO MONITOR.
--- NOTE | 2021-04-19 09:40 | NUR ---
CBG 158 AT THIS TIME AND INSULIN GTT TITRATED DOWN TO 8 UNITS/HR. ASKED PATIENT IF SHE WOULD LIKE TO TRY AND TAKE TYLENOL TO WHICH SHE DENIES BY SHAKING HER HEAD. WILL CONTINUE TO MONITOR. PT DRINKING PROPEL BUT DENIES HAVING ANY APPETITE OTHERWISE.
--- NOTE | 2021-04-19 10:00 | NUR ---
OVER TO UNIT, RECVD UPDATE FROM SAUMYA TEE. SAUMYA STATES THAT PATIENT IS NOT FEELING WELL TODAY AND HAS HAD LIMITED CONVERSATION WITH STAFF. WILL DEFER FOLLOW UP UNTIL PATIENT IS FEELING BETTER. ADVISE UNIT STAFF TO CALL IF ANYTHING IS NEEDED.
--- NOTE | 2021-04-19 10:45 | NUR ---
IN PATIENT'S ROOM FOR CBG CHECK. PT STATES SHE WANTS A DRINK OF WATER AND HER CUP HANDED TO HER. PT TAKES A DRINK WHILE LAYING DOWN, BUT THEN IMMEDIATLEY SEEMS TO CHOKE ON HER WATER. PT COUGHING, SIGNALING FOR HELP, AND ATTEMPTED TO HELP PATIENT SIT UP. HOB ELEVATED. PT COUGHED FOR ABOUT 3-4 MINUTES AND WAS VERY FRUSTRATED BY THIS WHOLE INCIDENT, EVIDENCED BY REPEATED SHAKING AND HITTING OF THE BED RAILS. ATTEMPTED TO COMFORT AND CALM PATIENT BEST POSSIBLE. OFFERED PATIENT PRN ATIVAN FOR ANXIETY TO WHICH SHE STATED SHE WOULD LIKE TO HAVE. PRN ATIVAN GIVEN.
--- NOTE | 2021-04-19 11:33 | NUR ---
PATIENT WAS ADMITTED AT HIGH RISK FOR MALNUTRITION DUE TO RECENT DECREASE IN APPETITE. PER ADMISSION SCREENING, SHE IS UNSURE IF SHE HAD WEIGHT LOSS. BMI IS 29.2. PATIENT CURRENTLY ON A DIABETIC CLEAR LIQUID DIET - DAY 2 TODAY. SHE IS ALSO ON AN INSULIN DRIP FOR DKA. PATIENT SLEEPING AT THIS TIME. RD WILL CHECK BACK FOR ANY NUTRITION NEEDS TOMORROW.
--- NOTE | 2021-04-19 11:39 | NUR ---
CBG 141 AT THIS TIME AND INSULIN GTT TITRATED UP TO 6.3 UNITS/HR. PT IS RESTING WELL AT THIS TIME. HR IN THE 117-119 RANGE, WHICH IS THE LOWEST IT HAS BEEN ALL DAY. CONTINUE TO MONITOR.
--- NOTE | 2021-04-19 13:08 | NUR ---
SPOKE WITH YUNIOR HERNANDEZ AFTER OBTAINING CONSENT FROM PT. WANTED AN UPDATE ON INSULIN DRIP AND "BLOOD INFECTION". UPDATED HIM ON THE BS STATUS AND INSULIN DRIP AND EXPLAINED THAT WE HAVE NOT HAD RESULTS BACK FROM SECOND CULTURES YET BUT HER RN CORINNE COULD CALL HIM BACK AND GIVE BETTER UPDATE. HE STATED"NO HURRY"
--- NOTE | 2021-04-19 13:36 | NUR ---
assessed bs. NOW AT 139. MOVED ONE TIER UP TO 4.8 UTS\HR. RANDAL RODRIGUEZ DOUBLE SIGNED.
--- NOTE | 2021-04-19 14:43 | NUR ---
URINE OUTPUT AT 1400 ONLY 75 ML AND BLOOD PRESSURES STARTING TO BE SOFTER. DR. SMITH CALLED AND GIVEN AN UPDATE. ORDER REC'D FOR ALBUMIN AND 500 ML BOLUS OF LR TO BE GIVEN. CBG AT 1430 WAS 148 AND INSULIN GTT NOW INFUSING AT 5.4 UNITS/HR. CONTINUE TO MONITOR.
--- NOTE | 2021-04-19 16:49 | NUR ---
CBG 133 AT 1630 AND INSULIN GTT TURNED DOWN TO 3.2. PATIENT MORE AWAKE AT THIS TIME AND SEEMS FRUSTRATED, EVIDENCED BY HER SAYING, "THIS JUST ISN'T RIGHT. I CAN'T EVEN MOVE MY FUCKING LEGS." OFFERED TO MOVE PATIENT IN BED OR HELP WITH REPOSITIONING TO WHICH SHE DENIES WANTING. MONITORING URINE OUTPUT HOURLY. ASKED IF ZAKIA WOULD LIKE A DRINK OF WATER AND SHE STATES, "WHY? SO I CAN CHOKE ON IT AND COUGH FOR 10 FUCKING MINUTES?" I ENCOURAGED PATIENT TO ALWAYS BE IN AN UPRIGHT SITTING POSITION WHEN DRINKING ANY FLUIDS TO AVOID ASPIRATION. CALL LIGHT WITHIN REACH. PATIENT UNABLE TO EXPRESS ANY FURTHER NEEDS.
--- NOTE | 2021-04-19 18:21 | NUR ---
ASKED BY DR. SMITH TO EVALUATE PATIENT FOR POTENTIAL MIDLINE/PICC PLACEMENT. PATIENT NOT INTERESTED IN HAVING EITHER OF THESE. PATIENT'S ARM EVALUATED WITH ULTRASOUND AND HER RIGHT BASILIC FOUND TO BE LARGE, PLENTY SUITABLE FOR A MIDLINE CATHETER, BUT WHEN LIGHTLY PRESSING ON PATIENT'S ARM WITH U/S PROBE, PATIENT BECOMES INTOLERANT, STARTS CUSSING, AND STATES SHE DOES NOT WANT THIS. ATTEMPTED TO REASON WITH PATIENT AND EXPLAIN WHY IT WOULD BE HELPFUL FOR HER TO HAVE THIS IV LINE, BUT PATIENT STILL REFUSING. RESPECTING PATIENT'S WISHES AND NO FURTHER EVALUATION SOUGHT AFTER. DR. MASON UPDATED. URINE OUTPUT AT 1800 WAS 28 ML. INSULIN GTT REMAINS AT 3.2 UNITS/HR. NEXT CBG IN A FEW MINUTES.
--- NOTE | 2021-04-19 19:30 | NUR ---
SHIFT REPORT RECEIVED FROM RANDAL SUN. CB, INSULIN DRIP TITRATED TO 3 UNITS/HR PER PROTOCOL. DRESSINGS CHANGED TO IV SITES IN RIGHT AC AND HAND, ALL 3 IV SITES PATENT AND INTACT. PT SLEEPING ON ROOM AIR, DID NOT AWAKEN FOR FINGER STICK. IVF INFUSING PER ORDERS. KISER PATENT OF CLOUDY YELLOW URINE.
--- NOTE | 2021-04-19 20:30 | NUR ---
BLOOD DRAWN FROM RIGHT AC IV WITHOUT ISSUE FOR SCHEDULED LABS. CB, INSULIN DRIP TITRATED TO 3.6 UNITS/HR PER PROTOCOL. PT DROWSY/LETHARGIC, IS IRRITABLE UPON WAKING. DENIES PAIN, AFEBRILE. LUNGS CLEAR/DIM, RA. HR REGULAR, RATE IN 110'S. BOWEL TONES HYPOACTIVE, DENIES NAUSEA. FACE APPEARS FLUSHED, OTHERWISE SKIN IS COOL AND PALE. UNABLE TO FULLY VISUALIZE REDDENED AREA TO RIGHT GLUTEUS AT THIS TIME. KISER BAG CHANGED TO UROMETER, CATH CARE PROVIDED, SCANT AMOUNT OF BROWN VAGINAL DISCHARGE NOTED. CALL LIGHT WITHIN REACH.
--- NOTE | 2021-04-19 21:37 | NUR ---
CB, INSULIN DRIP TITRATED TO 2 UNITS/HR PER PROTOCOL. SPOKE TO DR. SMITH REGARDING PT'S LAB VALUES, PLAN TO CHANGE BLOOD SUGAR CHECKS TO Q2 HOURS.
--- NOTE | 2021-04-19 22:00 | NUR ---
CB, INSULIN DRIP TITRATED TO 2.4 UNITS/HR PER PROTOCOL. PT SLEEPING, NO APPARENT DISTRESS. RESPIRATIONS EVEN AND UNLABORED. IV SITES INTACT AND INFUSING WNL. KISER PATENT.
--- NOTE | 2021-04-20 00:29 | NUR ---
CB, INSULIN DRIP TITRATED TO 4.2 UNITS/HR PER PROTOCOL. PT HR NOW RESTING IN 120'S, APPEARS UNCOMFORTABLE AND MOANING, FLACC 5/10, AXILLARY TEMP IS 99.4. PRN TORADOL GIVEN FOR PAIN AND LOW GRADE TEMP, PRN ATIVAN GIVEN FOR AGITATION. LUNGS REMAIN CLEAR/DIM. BOWEL TONES HYPOACTIVE. SKIN STILL SLIGHTLY COOL TO TOUCH, FACE REMAINS FLUSHED. IV SITES INTACT AND PATENT. KISER PATENT. CALL LIGHT WITHIN REACH.
--- NOTE | 2021-04-20 01:04 | NUR ---
PT RESTING MORE COMFORTABLY NOW, NO APPARENT DISTRESS. HR IMPROVED TO 100-105, AXILLARY TEMP NOW 98.9.
--- NOTE | 2021-04-20 02:00 | NUR ---
CB, INSULIN DRIP TITRATED TO 5.1 UNITS/HR PER PROTOCOL.
--- NOTE | 2021-04-20 03:05 | NUR ---
IN TO DRAW SCHEDULED LABS, IV SITE IS NO LONGER PULLING BACK ENOUGH BLOOD FOR LABS. PT AGITATED AND UNHAPPY ABOUT NEEDING NEEDLE STICK, HOWEVER SHE DID COOPERATE WITH CARE. BLOOD DRAWN ON FIRST ATTEMPT IN LEFT HAND AND SENT TO LAB. NEW IVF STARTED WITH NEW TUBING. KISER EMPTIED. CALL LIGHT WITHIN REACH.
--- NOTE | 2021-04-20 04:22 | NUR ---
CB, INSULIN DRIP TITRATED TO 4.2 UNITS/HR PER PROTOCOL. PT REMAINS AFEBRILE, FACE STILL SLIGHTLY FLUSHED, EXTREMITIES FEEL WARM AT THIS TIME. PT CONTINUES TO BE IRRITABLE WHEN WOKEN UP, IS FRUSTRATED ABOUT FINGER STICKS AND LAB DRAWS DESPITE EDUCATION ON THEIR NECESSITY. DENIES PAIN AND APPEARS COMFORTABLE AT THIS TIME. LUNGS REMAIN CLEAR/DIM ON RA. HR REGULAR, RATE 99-105. BOWEL TONES HYPOACTIVE, DENIES NAUSEA. IV SITES INTACT AND PATENT. FLUIDS INFUSING PER ORDERS. KISER PATENT, MARGINAL URINE OUTPUT, URINE CONTINUES TO APPEAR CLOUDY WITH SEDIMENT. NO FURTHER REQUESTS AT THIS TIME, CALL LIGHT AND BELONGINGS WITHIN REACH.
--- NOTE | 2021-04-20 06:20 | NUR ---
CB, INSULIN DRIP TITRATED TO 5.6 UNITS/HR PER PROTOCOL. NEW BAG OF INSULIN HUNG. PT HR ELEVATED ~115, AFEBRILE AT THIS TIME AT 98.3, PT APPEARS UNCOMFORTABLE AND IS MOANING. FLACC 5/10, 30MG PRN TORADOL GIVEN.
--- NOTE | 2021-04-20 07:40 | NUR ---
Attempted to see pt, she is sleeping and did not awaken to name. Left pt to sleep. No plan for dc today.
--- NOTE | 2021-04-20 08:15 | NUR ---
Patient lying on back at this time. Call light in reach, bed rails up X2. Glucose checked and insulin titrated as prescribed. Patient responds to staff but does not open eyes. When asked if this nurse may assess her cellulitis to right buttock, patient shakes her head no and does not move.
--- NOTE | 2021-04-20 09:12 | NUR ---
BUTTERFLY STICK X2 TO ATTEMPT TO OBTAIN BLOOD SPECIMENS. ABLE TO PULL 2 ML FROM RAC IV. ATTEMPT TO FLUSH LEFT AC IV, INFILTRATED. PATIENT VERY AGITATED THIS AM. YELLING AT STAFF, CURSING. EDUCATED PATIENT ON NEED FOR PICC LINE TO EASE BLOOD DRAWS AND IV ACCESS. PATIENT CONTINUES TO REFUSE PICC LINE. Kashmir ZELAYA RN, ALSO SPEAKS WITH PATIENT ABOUT PICC LINE. BECOMES AGITATED WITH STAFF. URINE OUTPUT OF 75 ML NOTED AT THIS TIME.
--- NOTE | 2021-04-20 09:25 | NUR ---
DR. SMITH IN TO SPEAK WITH PATIENT REGARDING PICC LINE. PATIENT BECOMES AGITATED WITH DR. SMITH AND MAKES MULTIPLE STATEMENTS ABOUT HOW STAFF JUST WANT TO "STAB HER," AND DR. SMITH KEEPS SENDING IN HIS "LACKIES, TO DO HIS WORK." ALSO STATES SHE DOESNT CARE ABOUT ANYTHING. TELLS STAFF TO GET OUT OF HER ROOM AND GIVE HER SPACE. THIS NURSE AND DR. SMITH LEAVE ROOM AFTER ENCOURAGE HER TO RECONSIDER PICC LINE.
--- NOTE | 2021-04-20 09:30 | NUR ---
THIS MERCHANDISE WORKER AT PATIENTS BEDSIDE TO DISCUSS PIC LINE VS HAVING MULTIPLE IV POKES. PATIENT IS RECEPTIVE AND ALSO AGREED TO ALLOW RN AFUA TO LOOK AT CELULITIS SITE ON BUTTOCKS. PATIENTS ALSO CALLED FOR AN UPDATE AT THIS TIME, THIS MERCHANDISE WORKER HELD PHONE FOR PATIENT TO SPEAK. PATIENT NOTING RESPONDING TO AND THEN BECAME ANGRY, CURSED AT HIM AND TURNED AWAY. THIS MERCHANDISE WORKER ENDED PHONE CALL.
--- NOTE | 2021-04-20 09:36 | NUR ---
, YUNIOR, CALLED TO CHECK ON PATIENT, UPDATED ON PATIENT STATUS. STATES HE WILL NOT BE ABLE TO COME IN UNTIL TOMORROW DUE TO LACK OF CHILDCARE TODAY. PHONE CALL TRANSFERRED TO PATIENT ROOM SO HE MAY SPEAK WITH HER, PER HIS REQUEST.
--- NOTE | 2021-04-20 09:59 | NUR ---
Jb Hart RN, in to speak with patient regarding IV access. Patient agrees to let him assess veins with ultrasound.
--- NOTE | 2021-04-20 10:00 | NUR ---
PATIENT TOOK FEW SMALL SIPS OF VEGETABLE BROTH WITH ASSISTANCE.
--- NOTE | 2021-04-20 10:24 | NUR ---
Allows Jb Hart RN, to start ultrasound IV. Started X1 attempt after lidocaine to insertion site. Tolerated without complaints of discomfort. Blood specimens pulled and sent to lab.
--- NOTE | 2021-04-20 10:34 | NUR ---
KISER CARE ATTEMPTED, PATIENT IS VERY PAINFUL. WILL ATTEMPT AGAIN LATER TODAY.
--- NOTE | 2021-04-20 11:12 | NUR ---
RESTING IN BED. REMAINS LETHARGIC. DOES RESPOND TO STAFF AND FOLLOW DIRECTIONS. CALL LIGHT IN REACH, BED RAILS UP X2.
--- NOTE | 2021-04-20 11:23 | NUR ---
REPORT CALLED TO RANDAL HAIDER ON MEDICAL FLOOR. PT TRANSFERED BY [facility]U SANDY SCHRADER VIA CHAIR. ALL BELONGINGS TRANSPORTED WITH PT.
--- NOTE | 2021-04-20 12:32 | NUR ---
ASSESSMENT COMPLETED. REMAINS LETHARGIC. HEARTRATE NOTED TO BE SLIGHTLY ELEVATED AT 115-118 AT THIS TIME. SEE EMAR.
--- NOTE | 2021-04-20 14:32 | NUR ---
Incontinent of small amount of brown, loose stool. While providing cares, yells out and becomes combative with repositioning. THen calms with discussion and allows staff to complete cares.
--- NOTE | 2021-04-20 14:42 | NUR ---
PATIENT IN BED, INCONTINENT OF LOOSE STOOL AND SMALL AMOUT OF MENSTRUAL BLOOD. PATIENT VERY PAINFUL TO MOVE-YELLING AND CRYING. CURSING AT STAFF TO "STOP" AT ONE POINT SLAPPING AT THIS SMALL PARTS SHAPER OPERATOR AND STATING "JUST FUCKING STOP AND GIVE ME SOME TIME!" PATIENT OFTEN ANSWERS QUESTIONS IN SARCASTIC OR INSULTING MANNER TOWARD STAFF. 3PA TO ROLL PATIENT AND CHANGE BEDDING. KISER CARE PROVIDED. PATIENT CALMED DOWN LEE ANN CARE WAS FINISHED AND REPOSTIONED ONTO HER RIGHT SIDE, PILLOWS SUPPORTING BEHIND. PATIENT NOTIFIED "SOSA" (MOTHER) CALLED TO CHECK ON HER. PATIENT REFUSED ANYTHING TO DRINK. ALSO REFUSED ORAL CARE, RESPONDING TO RANDAL CAAL SHE'S "WELL AWARE OF THE BUILDUP ON HER TEETH." CALL LIGHT AND PERSONAL ITEMS IN EASY REACH. NO OTHER NEEDS.
--- NOTE | 2021-04-20 14:45 | NUR ---
Labs shown to Dr. Syed, no new orders at this time.
--- NOTE | 2021-04-20 14:51 | NUR ---
SMALL 1 CM BY 1 CM OPEN AREA TO RIGHT MEDIAL BUTTOCK NOTED. NO DRAINAGE. LEFT OPEN TO AIR AT THIS TIME. DR. SMITH NOTIFIED.
--- NOTE | 2021-04-20 15:06 | NUR ---
PATIENT REMAINS ON DIABETIC CLEAR LIQUID DIET - DAY 3 TODAY. PATIENT WITH DKA AND CELLULITIS IF R BUTTOCK WITH NO INTESTINAL OR STOMACH ISSUES. SHE SHOULD BE ABLE TO TAKE AN ORAL DIET WITHIN THE NEXT 3 DAYS. WILL CONTINUE TO MONITOR.
--- NOTE | 2021-04-20 16:13 | NUR ---
Patient temp 99.3 orally at this time. Pennock removed from patient. Patient refuses oral tylenol. Asked if she will take suppository tylenol. Refuses suppository as well. Heartrate elevated to 120 bpm at this time.
--- NOTE | 2021-04-20 16:35 | NUR ---
Assessment completed. Moans when awake, does not verbalize where her discomfort is when asked. Glucose obtained, no changes needed at this time. Call light in reach, bed rails up X2.
--- NOTE | 2021-04-20 16:51 | NUR ---
DR. SMITH NOTIFIED OF ELEVATED HEARTRATE AND PATIENT REFUSAL TO TAKE TYLENOL ORALLY OR RECTALLY, CURRENT TEMP IS 99.9 AXILLARY. ORDERS TO MONITOR AND REPEAT BLOOD CULTURES IF TEMP INCREASES TO 101.3, THEN GIVE TORADOL WHEN ABLE.
--- NOTE | 2021-04-20 18:46 | NUR ---
Continues on insulin drip, US guided IV started today in left upper arm. Started this AM extremely lethargic, difficult to rouse at times. Becomes agitated yelling and cursing at staff making statements like "lady, I'll rip that fucking needle out," when attempting to draw blood for labs. Sodium bicarb administered IV today. THis evening with elevated temp 100.8, toradol given X2 this shift. Heartrate up to 128 with elevated temp, decreases to 110's when temp starts to decrease. Waking more this evening, carrying longer conversations, less agitation with cares, labs improving, Mercado catheter remains in place. Urine output 30-100 mL's per hour. Drank few sips of broth and water this AM, unable to drink this afternoon after multiple attempts to get her to drink. Starting to increase her oral intake this evening, taking sips of water when offered. Open area noted to right buttocks today within area of cellulitis, left open to air, repositioned q 3-4 hours.
--- NOTE | 2021-04-20 19:45 | NUR ---
PATIENT'S MOM CALLED, PATIENT AGREEABLE TO SPEAK TO HER. CALL TRANSFERED.
--- NOTE | 2021-04-20 20:26 | NUR ---
LABS DRAWN AT 1999 PER VERBAL INSTRUCTION. ACCU CHECK DONE, TITRATED INSULIN PER PROTOCOL. PATIENT IS ALERT, REQUESTED GATORADE WHICH WAS PROVIDED. HOB ELEAVTED, PATIENT HELD HER DRINK AND HAD SEVERAL SIPS. HARSH COUGH NOTED BEFORE AND AFTER DRINKING. O2 SATS >90% ON ROOM AIR. VS STABLE. HR ELEVATED TO 120'S. PATIENT NOT COOPERATIVE WITH ORAL TEMP CHECK, TEMPORAL TEMP 98.0 F. IV FLUIDS PER ORDER, SITE WNL. KISER DRAINING CLOWDY URINE, QS. WARM BLANKET PROVIDED, PATIENT IS THANKFUL AND APPROPRIATE WHILE SLIGHTLY WITHDRAWN.
--- NOTE | 2021-04-20 21:20 | NUR ---
DISCUSSED LAB RESULTS AND ORDER CHANGES WITH . LONG ACTING SSI PROVIDED PER ORDER, DC INSULIN DRIP IN 1 HOUR. START ACCU CHECKS AND SSI Q4H AT 2200. PATIENT IS ALERT AND RESTING QUIETLY. HER CALLED FOR AN UPDATE AND REQUEST TO SPEAK WITH HER, PATIENT AGREEABLE. PHONE CALL TRANSFERED INTO HER ROOM AND ASSISTED WITH THE PHONE. STAFF OVERHEARD ARGUMENT WITH PATIENT AND HER SPOUCE. PATIENT REQUEST NO MORE PHONE CALLS AT THIS TIME.
--- NOTE | 2021-04-20 22:30 | NUR ---
INSULIN DRIP OFF AT THIS TIME. IV ABX INFUSING, VERIFIED WITH TELEPHARMACY AND MD TO CONTINUE VANCO WITH RESULTS FROM LAST TROUGH BEING ELEVATED. PATIENT IS MOANING AND RESTLESS, STATES "EVERYTHING" WHEN NURSE ASKED WHAT IS WRONG. PRN ATIVAN PROVIDED. ACCU CHECK DONE, NO [facility]SI COVERAGE AT THIS TIME. IV FLUIDS INFUSING PER ORDER, SITE WNL. VS STABLE. HR CONTINUES TO BE ELEVATED, 120'S.
--- NOTE | 2021-04-20 23:37 | NUR ---
IV LOCOO FINISHED, SITE FLUSHED AND SL. PATIENT IS MOANING A LITTLE IN HER SLEEP, DID NOT OPEN HER EYES TO VOICE. HR ELEAVTED TO HIGH 120'S, 127-130.
--- NOTE | 2021-04-21 00:20 | NUR ---
PATIENT'S HR ELEVATED TO 128-132 CONSISTENTLY. PATIENT RESTING WITH EYES CLOSED, CONTINUES TO MOAN OCCATIONALLY. MORE SO WHEN STAFF IN THE ROOM. PRN TORADOL PROVIDED, UNABLE TO GET ORAL TEMP WHICH WAS PREVIOUSLY WNL. TEMPORAL TEMP 98.0 F. ADEQUATE URINE OUTPUT. IV FLUIDS PER ORDER, SITE WNL.
--- NOTE | 2021-04-21 00:45 | NUR ---
PATIENT SCREAMING AND CUSSING AT STAFF, PATIENT NOT REDIRECTABLE. PATIENT IS IN BED, VS STABLE, NO APPARENT HARM TO SELF. PATIENT PROVIDED PRIVACY, BED ALARM ACTIVE AND WILL CONTINUE TO MONITOR CLOSELY.
--- NOTE | 2021-04-21 01:01 | NUR ---
PATIENT REPORTS FEELING HOT. EXTRA BLANKETS REMOVED. ORAL TEMP 98.5 F. BEDSIDE FAN TURNED ON. PATIENT REQUEST SIPS OF WATER WHICH SHE WAS ABLE TO DO HERSELF WITH ENCOURAGEMENT. PATIENT HAS HARSH COUGH. TOLERATING ROOM AIR, RR 25-30. LUNG SOUNDS ARE DIM BUT CLEAR.
--- NOTE | 2021-04-21 03:10 | NUR ---
PATIENT INCONTINENT OF LARGE LIQUID BM. PATIENT TOLERATED BED CHANGE AND BEING CLEANED VERY POORLY. REPORTING PAIN ALL OVER AND SCREAMING. ABLE TO CALM PATIENT SLIGHTLY WITH CALMING WORDS. PATIENT IS RED AND EXCORIATED THROUGHOUT LEE ANN AREA. BLISTER LIKE AREA NOTED ON BOTTOM OF RIGHT GLUTE AND SMALLER ONE UP TO THE RIGHT OF THE COCCYX AREA. NEITHER ARE OPEN. ALYVEN PLACED ON LARGER ONE ON THE BOTTOM OF THE RIGHT GLUTE. BARRIER CREAM APPLIED TO AREA. LINEN CHANGED AND ATTEND PUT IN PLACE. PATIENT REPOSITIONED IN BED, REQUEST TO BE ON HER BACK. HOB ELEVATED AND ARMS ON PILLOWS. PATIENT IS CALM AND RESTING NOW. DENIES ANY FURTHER NEEDS. CALL LIGHT PLACED UNDER LEFT HAND. LIGHT DIMMED.
--- NOTE | 2021-04-21 05:25 | NUR ---
patient resting calmly, hr 106. iv fluids per order, sites wnl
--- NOTE | 2021-04-21 06:18 | NUR ---
PT O2 SATS MAINTAINING AT 87% WITH A LOW OF 85. PT PLACED ON 2l NC WHILE SLEEPING. WILL CONTINUE TO MONITOR.
--- NOTE | 2021-04-21 07:30 | NUR ---
PATIENT REPORT RECIEVED FROM RANDAL SAEED. PATIENT IS RESTING. BREATHING IS EQUAL AND UNLABORED. CALL LIGHT WITHIN REACH NO FUTHER NEEDS.
--- NOTE | 2021-04-21 08:00 | NUR ---
PATIENT ASSESSMENT COMPLETE. PATIENT HAS SODIUM BICARB RUNNING AT 75 MLS/HR AND D5LR WITH 40 MEQ OF K RUNNING AT 75 MLS/HR. PATIENT IS ALERT AND ORIENTED X4. LUNG SOUNDS ARE DIMINISHED IN THE LOWER LOBES AND CLEAR IN THE BASES. PATIENT DENIES SHORTNESS OF BREATH. OXYGEN SATURATIONS AND RR ARE WNL. HEART RATE IS SINUS TACH. AFEBRILE. PATIENT HAS GENERALIZED EDEMA ALL OVER. PATIENT HAS ALLYVEN BANDAGE OVER A 1 CM BY 1 CM OPEN AREA RIGHT MEDICAL BUTTOCK. REDDENED AREA. IV SITES ARE PATENT. PLAN OF CARE UPDATED. CALL LIGHT WITHIN REACH NO FUTHER NEEDS.
--- NOTE | 2021-04-21 08:15 | NUR ---
PATIENT REFUSES LOPRESSOR AND PROTONIX. PATIENT STATES "LOPRESSOR MAKES ME VIOLENT. PROTONIX I DO NOT NEED THAT." EDUCATED ON THE MEDICATIONS AND MD NOTIFIED. CALL LIGHT WITHIN REACH NO FUTHER NEEDS.
--- NOTE | 2021-04-21 08:58 | NUR ---
Update from rn. Pt having outbursts. Per RN, pt spouse will be in today. No plan for discharge today.
--- NOTE | 2021-04-21 09:45 | NUR ---
PATIENT REFUSED BLOOD DRAW. MD NOTIFIED. CALL LIGHT WITHIN REACH NO FUTHER NEEDS.
--- NOTE | 2021-04-21 10:29 | NUR ---
PTS PRIMARY NURSE IN ROOM ATTEMPTING TO GET PT TO BED SIDE COMMODE. PT REFUSING TO PUT WEIGHT ON LEGS AND LET HER KNEES BUCKLE UNDER HER. PT DID NOT FALL, PUT HERSELF ON THE FLOOR. THIS RN CALLED IN TO HELP GET PT BACK TO BED. PT REFUSES TO ASSIST WITH STANDING AT ALL. SECURITY CALLED TO ROOM TO ASSIST WITH LIFTING PT TO THE BED. PT PLACED BACK IN BED, SHEETS CHANGED. EXPLAINED TO PT THAT IF SHE DOES NOT START TO DO THINGS FOR HERSELF SHE WILL DECOMPENSATE AND HAVE TO GO TO A REHAB FACILITY. PT STATES "THREATS DONT WORK ON ME, BUT THANKS ANYWAY."
--- NOTE | 2021-04-21 10:29 | NUR ---
PATIENT ATTEMPTED TO TRANSFER TO [facility]. SANDY SCHRADER AT BEDSIDE. PATIENT WAS NOT HELPING WITH TRANSFER. SELENA RN TO HELP ASSIST PATIENT WAS GRADUALLY HELPED TO THE GROUND. THE PATIENT DID NOT FALL. SECURITY TO HELP PICK PATIENT UP FROM GROUND AND PUT IN THE BED. PATIENT INCONTIENT OF BM. LINENS CHANGED. PATIENT UNWILLING TO HELP WITH ANY CARES. THIS RN PRESENT IN ROOM
[2021-04-21] MEDS ORDERED: METOPROLOL SUC100 MG PO (11:15)
--- NOTE | 2021-04-21 11:15 | NUR ---
PATIENT REPORT GIVEN TO RANDAL TRUONG. PATIENT BEING MOVED TO MEDICAL SURGICAL ROOM 117.
--- NOTE | 2021-04-21 11:25 | NUR ---
pt report from ccu rn, pt non compliant ada pt with cellulitis, coming to room 117
--- NOTE | 2021-04-21 11:30 | NUR ---
PATIENT TRANSPORTED TO MEDICAL SURGICAL FLOOR. PATIENT WAS MOVED BY BED. TOLERATED TRANSPORT WELL. PATIENT AWARE OF [facility] COMING IN FOR AN EVALUATION. PATIENT STATED "I TRY TO AVOID [facility]". RANDAL TRUONG IN ROOM WITH PATIENT.
--- NOTE | 2021-04-21 11:48 | NUR ---
pt to room 117 via bed, rolled to left to let RN assess r side cellulites - swearing while moving - line to area shows improvement - ccu RN present for bedside report. fariba milian fusing on pump - pt call light oriented to room, tested and in reach - pt denies needs at this time,
--- NOTE | 2021-04-21 13:08 | NUR ---
PT DECLINED LUNCH - SL IV, DECLINED OFFER FOR SHOWER- DEMO COORDINATOR IN WITH THIS RN. PT FLAT AFFECT.
--- NOTE | 2021-04-21 13:09 | NUR ---
DIABETIC TEACHING DONE, PT NOT VERY RECEPTIVE - EDUCATED ON SITES OF SQ INJECTION OF INSULIN, CLEANING SITE, PINCH, POKE THE SITE, PUSH THE INSULIN PLUNGER TO INJECT, THEN DISPOSE OF NEEDLE CAREFULLY.
--- NOTE | 2021-04-21 14:45 | NUR ---
[facility] mental health provider margaret here to assess pt,
--- NOTE | 2021-04-21 15:19 | NUR ---
pt at end of mental health assessment s/o in room, pt asked to transfer with this RN to for strength assessment. Pt stood well at side of bed for 2-3 seconds before attempting a pivot transfer with 1 person - her legs became weak and she was assisted to a seated position in the chair. s/o helped as we stood again to reposition chair. pt was inc. of stool in bed. call light in reach and menu and phone in reach with s/o assisting pt to order meal. vitals being taken now.
--- NOTE | 2021-04-21 16:47 | NUR ---
rn called receiving and processing supervisor about lab and this rn unable to get lab draw for blood tests. RN jennifer to attempt using us to guide. pt s/o in room, she is anxious increased resp rate sitting up in ch, poor eye contact. but agreeable to plan
--- NOTE | 2021-04-21 18:19 | NUR ---
SPOKE WITH DR. MEDINA REGARDING INABILITY TO DRAW LABS AT THIS TIME, INCLUDING WITH AN ULTRASOUND DRAW. LET HIM KNOW THAT PT IS NOW AGREEABLE TO A PICC LINE. ORDER TO GIVE A BOLUS OF FLUIDS NOW AND ORDER PICC LINE TO BE PLACED. PICC TEAM CONTACTED.
--- NOTE | 2021-04-21 18:22 | NUR ---
MULTIPLE ATTEMPTS MADE BY THIS RN TO OBTAIN BLOOD SAMPLE. 2ML OBTAINED AND SENT TO LAB. THAT DRAW WAS SLOW. SAMPLE SENT TO LAB.
--- NOTE | 2021-04-21 19:07 | NUR ---
pt bladder scan for 422 ml - needs to void post rob removal at [facility]. today. pt does not feel need to void - call to dr. samuels started - and iv bicarb started - pt attempted to 2 person assist pivot transfer but was generalized weakness, moaning and lethergy unable to bear wt. placement of sling to use lift from celing now - and shift change staff to assist.
--- NOTE | 2021-04-21 19:45 | NUR ---
during pt transfer using the connie lift from chair to bed, bottom was visualized better to see that there were 2 openings to the right midline area of her bottom right cheek, pt was inc of stool and nelyl area was cleaned and pt was placed in a clean attend. Still unable to void post rob removal - new order for strait cath. merrill rollins in for picc line placement at this time, sl iv for his procedure - report bedside to merrill ivory, dr steinberg notified of abcess with 2 areas of concern to r gluteal fold new orders taken for us and charge nurse ordering and calling us - update to pt s/o via phone by dry pan charger.
--- NOTE | 2021-04-21 19:54 | NUR ---
BEDSIDE REPORT FROM DIONNE VARELA AND FREDO ROB RN, PT HAS NEW DEVELOPEMENTS, CALLED BY FREDO TEE, NEW ORDERS, SEE RN NOTES.
--- NOTE | 2021-04-21 20:42 | NUR ---
ERNIE CALDERON FROM [employer] INTO SEE PT, WORKER SAID PT WAS NOT INTERESTED IN THEIR SERVICES OR INTERACTING VERBALY AT THIS TIME.
--- NOTE | 2021-04-21 21:00 | NUR ---
in to transfer pt to ms 111 from 117, vitals taken, temp and hr elevated, rn informed immedeately, pt provided with fresh ice water, no further needs
--- NOTE | 2021-04-21 21:19 | NUR ---
CALLED TO REPORT 102.7 TEMP AND TACHYCARDIA 125 BPM, AT THIS TIME. ORDERS FOR BLOOD CULTURE X2, ONE FROM PICC OK.
--- NOTE | 2021-04-21 22:18 | NUR ---
CALLED IN REGARDS TO PICC LINE PLACEMENT, REPORT. READ REPORT, INDICATING THE TIP OF PICC IS IN RIGHT MID ATRIUM. SAID THAT IS NOT OK TO USE IN THIS PLACEMENT. SAID THE PICC LINE NEEDS TO BE PULLED OUT 2.5CM AND THEN CHEST XRAY FOR COMFIRMATION. THIS RN CALLED DE ALCOHOLIZER RANDAL BALTAZAR TO NOTIFY OF ORDER. DELANEY IS GOING TO GET BACK TO ME IN REGARDS TO POLICY ON ADJUSTING PICC LINE PLACEMENT.
--- NOTE | 2021-04-21 22:23 | NUR ---
MANAGER RECRUITING DELANEY SAID IT HAS TO BE A PICC LINE CERTIFIED NURSE TO ADJUST/BACK OUT A PICC LINE.
--- NOTE | 2021-04-21 22:26 | NUR ---
PICC LINE RN MARIAN ORO CALLED REGUARDING XRAY REPORT THAT READ PICC LINE TIP IS IN R ATRIUM. WHEN NOTIFIED, DR. MEDINA REPORT THAT HE WOULD LIKE TO PICC LINE TO BE WITHDRAWN 2.5CM FROM CURRENT LOCATION. MARIAN ORO ADVISES THAT ANY RN CAN PERFORM THIS TASK AND WOULD NOT BE COMING IN TO PERFORM THIS ADJUSTMENT. THIS RN REVIEWED POLICY AND [facility]ACTICE AND PERFORMED THE PROCEDURE WITHDRAWLING THE PICC LINE 2.5CM FOR A TOTAL OF 6CM EXPOSED WITH STERILE TECHNIQUE REPLACING DRESSING AND BIO-PATCH. REPEAT CHEST XRAY ORDERED.
--- NOTE | 2021-04-21 23:15 | NUR ---
in to assist rn with cares
--- NOTE | 2021-04-21 23:28 | NUR ---
PT STRAIGHT CATH, FOR 650ML AT THIS TIME, NOTED TO BE CLOUDY CONSENTRATED, DARK YELLOW. SLIGHT ODOR NOTED. PT TOLERATED WELL. PT'S SPOUSE AT BEDSIDE. PT EATING YOGURT. DRINKING WATER. NO OTHER REQUESTS AT THIS TIME. SHE REQUESTED PAIN MEDICATIONS, SHE WAS GIVEN TYLENOL AT HS. STERILE TECHNIQUE USED FOR STRAIGHT CATH.
--- NOTE | 2021-04-21 23:41 | NUR ---
CALLED TO HAVE HIM CHECK CXRAY FOR PLACEMENT. HE GAVE HIS OK TO USE. ALSO UPDATED ON CT RESULTS BACK
--- NOTE | 2021-04-22 00:35 | NUR ---
PT RESTING IN BED ALERT TO THIS RN INTO PT ROOM, 5MG OXYCODONE PO ADMINISTERED AT THIS TIME FOR PAIN 12/06, SHE WAS ALSO GIVEN A WARM PACK SHE SAID "IT IS HELPING A LITTLE" WILL CLOSE.
--- NOTE | 2021-04-22 00:37 | NUR ---
CALLED FOR UPDATE, V/S GIVEN, AND PT INCREASE IN PAIN REPORTED. NEW ORDERS STARTED.
--- NOTE | 2021-04-22 01:03 | NUR ---
PT RESTING IN BED SHE REPORT PAIN IS IMPROVING, BUT STILL HURTS. PAIN MEDICATION HAS BEEN ADMINISTERED, WILL MONITOR FOR AFFECTIVENESS.
--- NOTE | 2021-04-22 01:40 | NUR ---
PT ALERT REPORTS SHE HAS A BAD TASTE IN HER MOUTH, ASKED FOR SOMETHING TO DRINK, SHE AGREED TO SPRITE, DIET SPRITE PROVIDED. PT DID NOT COMPLAIN OF PAIN AT THIS TIME.
--- NOTE | 2021-04-22 02:39 | NUR ---
PT HAD INCONT OF BM, SHE SAID SHE THOUGHT SHE JUST HAD TO FART, THEN HAD BM. TWO PERSON ASSIST TO CLEAN AND CHANGE BED, PT WAS ABLE TO ASSIST IN TURNING IN BED VERY WELL. NO URINE NOTED WILL BLADDER SCAN IF NO VOID BY 0400.
--- NOTE | 2021-04-22 04:07 | NUR ---
PT RESTING QUIETLY IN BED, EYES CLOSED RR EVEN 18 BPM, NO DISTRESS NOTED, PT IS IN RELAXED POSITION, NO MOANS OR RESTLESSNESS AT THIS TIME.
--- NOTE | 2021-04-22 05:08 | NUR ---
START OF SHIFT PT HAD PICC LINE PLACED, THAT NEEDED ADJUSTED AND CONFIRMED BY XRAY, CT SCAN COMPLETED, LABS RAN, ABX RAN LATE DUE TO LOSS OF ACCESS. PT HAS OXYCODONE AVAILABLE FOR INCREASED PAIN TO RIGHT HIP, BUTTOCKS AREA. SHE SLEPT WELL THIS LATE AM, SHE WAS FEBRILE AT START OF SHIFT 102.7 F. B/C X2 DRAWN THEN TYLENOL GIVEN, SHE NOW MAINTAINS A LOW GRADE TEMP. SHE HAS HAD ONE INCONT OF STOOL. NO URINE OUT SHE WAS STRAIGHT CATH 2350, WILL BLADDER SCAN THIS AM FOR POSSIBLE KISER PLACEMENT. HER SPOUSE WAS IN ROOM UNTIL MIDNIGHT THEN WENT HOME. NEW ABX ORDERS OVERNIGHT.
--- NOTE | 2021-04-22 06:20 | NUR ---
PT BLADDER SCANNED FOR 480ML AT THIS TIME, KISER CATHETER PLACED AND LEFT PER ORDERS. PT TOLERATED WELL, REPORTS WAS ABLE TO SLEEP AFTER LAST DOSE PAIN MEDICATION, SHE SAID HER PAIN IS INCREASEING 8/, 5MG OXYCODONE GIVEN AT THIS TIME, PT ALSO ROLLED SIDE TO SIDE IN BED TO ASSIST WITH INCONT BM CLEAN UP.BARRIER CREAM WIPES USED PT SKIN AT GLUTEAL CLEFT SORE AND RED WITH OPEN AREAS.
--- NOTE | 2021-04-22 07:49 | NUR ---
PT ASKED THIS DIET SUPERVISOR TO COME BACK LATER. CALL LIGHT WITHIN REACH, NO FURTHER NEEDS AT THIS TIME.
--- NOTE | 2021-04-22 09:00 | NUR ---
Patient awake in bed visiting with , no distress. Patient denies shorness of breath at this time. Patient appears pale and cool to touch in her extremities. Patient reports a history of raynaud's syndrome. Patient upset by conversation with provider regarding the need for a blood transfusion. advised staff to allow patient to have some privacy. Encouraged patient to call staff if she has needs or questions.
--- NOTE | 2021-04-22 09:36 | NUR ---
PT IN AND OUT OF SLEEP. CALL LIGHT WITHIN REACH, NO FURTHER NEEDS. PT STILL WORKING ON BREAKFAST. WILL RETURN FOR I&O'S. RANDAL CERVANTES IN ROOM.
--- NOTE | 2021-04-22 09:53 | NUR ---
Ensure provided to patient at this time.
--- NOTE | 2021-04-22 12:18 | NUR ---
Patient resting in bed, alert and oriented x4. Patient reports a poor appetite, patient drinking ensure at bedside. Patient declined pain medication at this time. No needs at this time.
--- NOTE | 2021-04-22 13:36 | NUR ---
PT SLEEPING AGAIN. PT HAS NOT TOUCHED LUNCH TRAY OF YET. RN NOTIFIED. WILL RETURN FOR I&O'S. VS DONE. CALL LIGHT WITHIN REACH, NO FURTHER NEEDS AT THIS TIME
--- NOTE | 2021-04-22 13:39 | NUR ---
PT REFUSED LUNCH TRAY. PT WAS UNWILLING TO EVEN VIEW WHAT WAS ON TRAY. RANDAL CERVANTES NOTIFIED. CALL LIGHT WITHIN REACH, NO FURTHER NEEDS AT THIS TIME. PT HAD TEMP OF 99.4. RANDAL CERVANTES NOTIFIED.
--- NOTE | 2021-04-22 14:51 | NUR ---
DR. CERNA REQUESTS LABS BE PERFORMED "STAT." LAB CALLED AND PHLEBOTMIST STATES THEY ARE ON THEIR WAY NOW. PTS PRIMARY RN UPDATED.
--- NOTE | 2021-04-22 15:00 | NUR ---
THIS RN ASSISTING DR. CERNA WITH PRE OP ORDERS. 10ML LABS DRAWN FROM PICC LINE WIHT 10ML WASTE. PRE OP CHECK LIST COMPLETED. PROCEEDURE REVEIWED BY DR. CERNA, CONSENT SIGNED, THIS RN WITNESSED. IV ABX COMPLETED. PICC LINE ASSESSED, WNL. BRISK BLOOD RETURN NOTED. PICC LINE SALINE LOCKED AT THIS TIME. GARMENT SUPERVISOR TO BEDSIDE FOR CHG WIPE DOWN PRIOR TO SURGERY, PENDING LABS. PT VERBALIZES UNDERSTANDING OF PLAN OF CARE. PT REQUESTS THAT HER BE ALLOWED THROUGH WHEN CALLING "REMOVE MY CONFEDENTAL STATUS JUST FOR HIM." ADMINSTRATION CALLED AND UPDATED PER REQUEST AND STATE YUNIOR'S CALLS WILL BE SENT THROUGH. PRE OP PAPER WORK COMPELTED. PTS PRIMARY RN, AMINA, TIM. NO ADDITIONAL REQUESTS OR COMPLAINTS. CALL LIGHT WITHIN REACH.
--- NOTE | 2021-04-22 15:53 | NUR ---
Patient left unit with Surgery crew at this time.
--- NOTE | 2021-04-22 15:54 | NUR ---
THIS WASHER OPERATOR AND PT'S GAVE PT PRE-SURGICAL WIPE DOWN. PT WAS ABLE TO ROLL ON THIER OWN BUT SCREAMED WHEN THE EDGE OF THE NEW BRIEF WAS ROLLED UP UNDER SIDE. PT WENT INTO A SHORT HYSTERIA OVER THE ROLLING, WIPING, AND TUCKING. CLEAN SHEETS AND GOWN GIVEN. CLEAN BRIEF IN PLACE. IN ROOM. CALL LIGHT WITHIN REACH, NO FURTHER NEEDS AT THIS TIME.
--- NOTE | 2021-04-22 18:15 | NUR ---
PATIENT ARRIVED TO UNIT. BEDSIDE REPORT GIVEN BY RANDAL RIVERA. PATIENT IS STILL DROWSY. VITAL SIGNS DOCUMENTED. PATIENT IS ON 4 LITER NASAL CANULUA. RN IN ROOM WITH PATIENT AT THIS TIME.
--- NOTE | 2021-04-22 18:30 | NUR ---
PATIENT ASSESSMENT COMPLETE. PATIENT STILL DROWSY. AROUSABLE BY VOICE. PATIENT DENIES PAIN AND SHORTNESS OF BREATH AT THIS TIME. LUNG SOUNDS ARE CLEAR IN THE BASES AND DIMINISHED IN THE LOWER LOBES. PATIENT IS ON ROOM AIR. OXYGEN SATURATIONS AND RR ARE WNL. BREATHING EQUAL AND UNLABORED. HEART RATE IS 100-120 BPM SINUS TACH. AFEBIRLE. URINE IS YELLOW AND CLOUDY. PATIENT WAS INCONTIENT OF STOOL AND WAS CHANGED. NEW ABD AND GAUZE APPLIED AT WOUND SITE. NO DRAINAGE. SURGICAL WOUND WAS CLEANED. TWO DRAINS AT WOUND SITES. PICC LINE PATENT AND DRAWS BLOOD BACK. PLAN OF CARE UPDATED. NO QUESTIONS AT THIS TIME. CALL LIGHT WITHIN REACH NO FUTHER NEEDS.
--- NOTE | 2021-04-22 18:40 | NUR ---
04/22/21 1840 Bernice Muro 1701 PT ARRIVED IN PACU NON RESPONSIVE TO NOXIOUS STIMULI WITH OPA IN PLACE. CHIN LIFT HELD BY RN WITH SATS 69%. 1705 INCREASED O2 TO 15L VIA MASK. 1714 ANESTHESIA AT BEDSIDE AND NASAL AIRWAY PLACED. RACEMIC EPI NEBULIZER GIVEN. SATS INCREASING TO 84% WITH CHIN LIFT. 1724 PT REACTIVE AND PULLING AT OXYGEN MASK. OPA REMOVED. [address] AND ANESTHESIA AWARE WITH NO NEW ORDERS. 1730 OXYGEN SATS 93% ON 6L MASK. CHIN LIFT NOT REQUIRED AT THIS TIME. 1737 NASAL AIRWAY REMOVED. NO C/O'S PAIN. 1745 O2 SATS 93% ON 4L VIA NC. PT SLEEPY, BUT AWAKENS TO VERBAL STIMULI. 1805 TO CCU. REPORT GIVEN TO RN'S.
--- NOTE | 2021-04-22 19:13 | NUR ---
REPORT RECEIVED FROM KRISTOFER RN, WILL CONTINUE PLAN OF CARE.
--- NOTE | 2021-04-22 20:36 | NUR ---
PT LAYING IN BED SLEEPING AND AWOKE EASILY. PT WAS DROWSY BUT ORIENTED X 3. PT DENIED HAVING PAIN AT THIS TIME AND DENIED HAVING SHORTNESS OF BREATH. VITALS TAKEN AND CBG ASSESSED. CBG WAS 327. SCHEDULED MEDICATIONS ADMINISTERED AT THIS TIME, 11 UNITS OF INSULIN ADMINSTERED PER SLIDING SCALE (SEE MAR). IV ANTIBIOTICS INFUSING ORDERED (SEE MAR). PICC LINE FLUSHED EASILY AND RETURNED BLOOD WHEN ASSESSED, SITE IS WNL. PT THEN ASSESSED AT THIS TIME. LUNGS CLEAR IN UPPER LOBES BILATERALLY AND DIMINISHED IN THE BASES. ACTIVE BOWEL TONES. STRONG RADIAL AND PEDAL PULSES PRESENT, GENERALIZED EDEMA PRESENT IN LOWER LEGS BILATERALLY, SCDS IN PLACE AND ON. WILL ASSESS SURGICAL SITE NEXT TIME PT STATED SHE NEEDED A BREAK FROM THE ASSESSMENTS AND CARES AT THIS TIME. PT DENIES ANY PAIN TO THE SITE WHEN ASKED AT THIS TIME. PT REPORTS NO FURTHER NEEDS AT THIS TIME, KISER DRAINING, IV ABX INFUSING ORDERED, CALL LIGHT IN REACH, BED IN LOWEST POSITION, WILL CONTINUE PLAN OF CARE.
--- NOTE | 2021-04-22 21:20 | NUR ---
CALL LIGHT USED BY PT. PT SITTING UP IN BED AWAKE AND STATED THAT SHE HAD A COUGH THAT WAS IRRITATING HER THROAT. PT PROVIDED WITH A HOT TEA PER HER REQUEST. AFTER GETTING HER A TEA THE PT BECAME BECAME ANXIOUS ABOUT HER COUGH STATING IT WOULD NOT STOP, PT WAS INFORMED THAT THE INCREASE IN COUGHING WAS LIKELY FROM AN AIRWAY, PT BEGAN TO CRY STATING SHE COULD NOT TAKE THE COUGHING AND IRRITATION. PT OFFERED PO VISTARIL BUT REFUSED IT STATING SHE COULD NOT TAKE PO TABLETS DUE TO HER THROAT IRRITATION. PT ALSO REFUSED TO TAKE HER PO SODIUM BICARBONATE AT THIS TIME. PT'S ARRIVED AT THIS TIME AND IS NOW AT THE BEDSIDE WITHT HE PT. PT REPORTS NO FURTHER NEEDS AT THIS TIME AND IS NOW ON ROOM AIR, SPO2 95%. DR. ROJAS CALLED AFTERWARDS AND WAS NOTIFIED OF PT'S INCREASING ANXIETY AND COUGH WELL PT'S BLOOD PRESSURE AND URINE OUTPUT. NEW ORDERS GIVEN FOR 1 CEPACOL LOZENGE Q2 PRN FOR COUGH WELL GUAIFENESIN + CODEINE 5ML Q4 PRN FOR COUGH. WILL CONTINUE PLAN OF CARE.
--- NOTE | 2021-04-22 21:47 | NUR ---
PT SITTING IN BED AWAKE AND ALERT, PT'S AT THE BEDSIDE. PT STILL HAVING COUGHS AT THIS TIME. PRN CEPACOL LOZENGE AND ROBTISSUIN+CODEIN ADMINISTERED ORDERED (SEE MAR). IV ROCEPHIN COMPLETED AT THIS TIME, IV CLEOCIN NOW INFUSING AT ORDERED RATE. PT PROVIDED WITH WATER PER HER REQUEST AT THIS TIME. PT REPORTS NO FURTHER NEEDS AT THIS TIME, WILL CONTINUE PLAN OF CARE. CALL LIGHT IN REACH, PT'S AT THE BEDSIDE, BED IN LOWEST POSITION.
--- NOTE | 2021-04-22 22:50 | NUR ---
PT LAYING IN BED SLEEPING AT THIS TIME AND AWOKE WHEN THIS RN ENTERED THE ROOM. PT DENIES HAVING ANY PAIN AT THIS TIME AND STATES HER COUGH HAS RESOLVED. IV CLEOCIN INFUSION COMPLETED, IV VANCOMYCIN NOW INFUSING AT ORDERED RATE (SEE MAR). PT REPORTS NO FURTHER NEEDS AT THIS TIME WHEN ASKED, WILL CONTINUE PLAN OF CARE. CALL LIGHT IN REACH, BED IN LOWEST POSITION, PT'S IN ROOM AT THE BEDSIDE.
--- NOTE | 2021-04-23 00:03 | NUR ---
PT LAYING IN BED SLEEPING AND AWOKE WHEN ENTERING THE ROOM. IV ABX COMPLETED, 20ML NS FLUSHED AND PT HEPARIN LOCKED PER PROTOCOL (SEE MAR). PT DENIES HAVING ANY PAIN AT THIS TIME WHEN ASKED AND DENIES THE NEED FOR PRN COUGH MEDICATION. PT VITALS TAKEN AND PT ASSESSED. PT ABLE TO TURN TO HER LEFT SIDE, SURGICAL SITE AT PERIRECTAL AREA ASSESSED. SITE INTACT, BROWN/DOWNEY DRAINAGE NOTED ON GAUZE. NEW GAUZE AND ABD PAD PLACED IN AREA. AREA NOW C/D/I. PT REPORTS NO PAIN TO THE AREA WHEN ASKED AND IS NOW LAYING ON HER BACK AGAIN. PT REPORTS NO FURTHER NEEDS AT THIS TIME WHEN ASKED. SCD'S IN PLACE AND ON, CALL LIGHT IN REACH, BED IN LOWEST POSITION, PT'S AT THE BEDSIDE, WILL CONTINUE PLAN OF CARE.
--- NOTE | 2021-04-23 01:44 | NUR ---
PT LAYING IN BED SLEEPING AT THIS TIME, SPO2 NOTED TO BE 88-89% WHILE ASLEEP. PT WOKE UP WHEN ENTERING THE ROOM AND DENIED HAVING ANY PAIN OR SHORTNESS OF BREATH. 1L O2 NC PLACED ON PT AT THIS TIME TO KEEP SPO2 ABOVE 90%, PT NOW AT 92-93% SPO2. PT REPORTS NO FURTHER NEEDS AT THIS TIME WHEN ASKED AND RETURNED BACK TO SLEEP, WILL CONTINUE PLAN OF CARE. CALL LIGHT IN REACH.
--- NOTE | 2021-04-23 03:36 | NUR ---
PT LAYING IN BED SLEEPING AT THIS TIME ON 1L O2 NC, SPO2 96%. RESPIRATIONS NOTED AND ARE EVEN AND UNLABORED, PT IN NO APPARENT DISTRESS AND WAS LEFT UNDISTURBED. CALL LIGHT IN REACH, WILL CONTINUE PLAN OF CARE.
--- NOTE | 2021-04-23 05:14 | NUR ---
PT USED CALL LIGHT, PT STATED SHE WANTED TO BE BOOSTED UP IN BED AND SAT UP. RANDAL RALPH IN TO ASSIST IN REPOSITIONING PT UP ON THE BED. PT THEN SAT UP. PT STATED SHE FELT HER THROAT WAS IRRITATED AT THIS TIME AND REQUESTED PRN ROBITUSSIN AND A HOT TEA. PRN GUAIFENESIN+CODEINE ADMINISTERED AT THIS TIME (SEE JUN). AND HOT TEA ALSO PROVIDED TO PT. RANDAL RALPH LUKE LABS AT THIS TIME FROM THE PT'S PICC, PT NOW SALINE LOCKED. PT VITALS TAKEN AT THIS TIME AND PT ASSESSED. PT SPO2 97% AT THIS TIME ON 1L O2 NC, PT DENIES SHORTNESS OF BREATH OR PAIN. PT PLACED ON ROOM AIR AND IS MAINTAINING AN SPO2 OF 91%. PT REPORTS NO FURTHER NEEDS AT THIS TIME WHEN ASKED, WILL CONTINUE PLAN OF CARE. CALL LIGHT IN REACH.
--- NOTE | 2021-04-23 06:10 | NUR ---
PT LAYING IN BED AWAKE AT THIS TIME AND REPORTS NO PAIN OR SHORTNESS OF BREATH WHEN ASKED. SCHEDULED CLEOCIN STARTED AND NOW INFUSING AT ORDERED RATE (SEE MAR). PT'S SURGICAL SITE ASSESSED, GUAZE HAD SMALL AMOUNT OF BROWN DRAINAGE ON IT. NEW GAUZE AND ABD PAD PLACED AT PERIRECTAL SITE. PT NOW LAYING BACK IN BED AT THIS TIME AND REPORTS NO FURTHER NEEDS. CALL LIGHT IN REACH, BED IN LOWEST POSITION, WILL CONTINUE PLAN OF CARE.
--- NOTE | 2021-04-23 06:12 | NUR ---
DR. MEDINA NOTIFIED OF PT'S CRITICAL HGB OF 5.9. PHYSICIAN STATED HE WOULD COME DOWN TO SPEAK WITHT HE PT LATER ABOUT A BLOOD TRANSFUSION.
--- NOTE | 2021-04-23 06:44 | NUR ---
PT LAYING IN BED SLEEPING AND AWOKE EASILY. PT DENIES HAVING ANY PAIN OR SHORTNESS OF BREATH WHEN ASKED. IV CLEOCIN COMPLETED, PT SALINE LOCKED. PT REPORTS NO FURTHER NEEDS AT THIS TIME WHEN ASKED, WILL CONTINUE PLAN OF CARE.
--- NOTE | 2021-04-23 07:34 | NUR ---
REPORT RECEIVED FROM RANDAL OBRIEN. PT IN ROOM.
--- NOTE | 2021-04-23 07:41 | NUR ---
PT STATES SHE FEELS BETTER BUT MORE WEAK TODAY. EXPLAINED THAT HER BLOOD NUMBERS ARE LOW AND THAT SHE MAY FEEL BETTER AFTER A TRANSFUSION. SHE STATED SHE AGREED TO IT YESTERDAY AND WOULD BE WILLING TODAY. DECLINED BREAKFAST FOR NOW BUT MIGHT LATER.
--- NOTE | 2021-04-23 08:26 | NUR ---
PT DECLINED BREAKFAST AND STATES SHE DOES NOT WANT TO TAKE ANYTHING ORAL ATT. HER THROAT IS HURTING AND DOES NOT LIKE THE TASTE OF CRUSHED PILLS IN APPLESAUCE EITHER. BS 314/
--- NOTE | 2021-04-23 09:30 | NUR ---
LUKE BLOOD OUT OF PICC FOR VANCO TROUGH. PT TOLERATED WELL AND PICC FLUSHED AND LUKE BLOOD WELL.
--- NOTE | 2021-04-23 10:13 | NUR ---
DR MEDINA VERBALLY ORDERED TO GIVE TWO UNITS OF PRBC. JANET WENT TO LAB AND RETRIEVED. DOUBLE CHECKED BLOOD BANDS WITH RANDAL GONZALES AND STARTED BLOOD. VS STABLE WITH SLIGHTLY ELEVATED TEMP OF 99.3 PRIOR TO START. PT VERBALIZED UNDERSTANDING OF S\S OF REACTION AND WHEN TO CALL. 15 MIN VS REMAIN STABLE AND PT RESTING COMFORTABLY. CALL LIGHT IN REACH. PICC WNL.
--- NOTE | 2021-04-23 10:16 | NUR ---
KADEN FROM [employer] [employer] HERE TO SPEAK WITH PT. GIVEN BRIEF UPDATE ON PT. CURRENTLY IN ROOM TALKING TO PT.
--- NOTE | 2021-04-23 10:52 | NUR ---
PT CALLED TO BE BOOSTED IN BED. ORDERED BREAKFAST AND IS MORE TALKATIVE. DENIES PAIN, OTHER THAN THROAT. GIVEN TEA.
--- NOTE | 2021-04-23 11:56 | NUR ---
SECOND UNIT OF [facility] STARTED. PT TIRED AGAIN BUT EASILY AROUSABLE. DRAINED KISER SHE FELT SHE NEEDED TO VOID. LIGHT YELLOW URINE RETURNED. VANCO IS LATE DUE TO PT UNWILLING TO HAVE SECOND IV STARTED. PHARMACY AWARE.
--- NOTE | 2021-04-23 12:58 | NUR ---
PT UNABLE TO FEED SELF DUE TO EXHAUSTION SHE STATES. HAS TAKEN 2 BITES OF FRUIT AND ONE OF YOGURT. REFUSED ENSURE FOR NOW.
--- NOTE | 2021-04-23 13:41 | NUR ---
SECOND UNIT COMPLETED. PT TOLERATED WELL WITH NO S\S OF REACTION. DR CERNA IN TO TAKE OUT PACKING. PT TOLERATED WELL. A LITTLE TEARFUL AFTER THE FACT. VANCO STARTED. VS STABLE. REASSURED PT THAT SHE IS DOING WELL AND HER REDNESS HAS IMPROVED.
--- NOTE | 2021-04-23 14:59 | NUR ---
GAVE PT A BED BATH WITH HAIR WASH. PT UNABLE TO GET UP TO BSC ATT, DID A MODIFIED SITZ BATH, SOAKED WITH WARM WET WASHCLOTHS AND THEN IRRIGATED WITH APPROX 1.5 L WARM WATER INTO LARGE BED MCPHERSON. PT TOLERATED WELL AND AREA APPEARS CLEAN OF ANY DEBRIS. CALLED REPORT TO RACHID IN [facility] AND ATTEMPTED TO CALL YUNIOR TO LET HIM KNOW SHE HAD BEEN MOVED. PT STATED SHE WILL TRY AGAIN TO GET UP THIS EVENING THIS RN EXPLAINED IT IS BEST TO SOAK IN THE WARM WATER TO GET MAXIMUM BENEFIT.
--- NOTE | 2021-04-23 15:24 | NUR ---
[facility]. ALERT AND QUIET DENIES PAIN OR NEEDS OF. FRESH H20 TO BEDSIDE CALL LIGHT AND NEEDED ITEMS IN REACH
--- NOTE | 2021-04-23 16:20 | NUR ---
PT RESTING IN BED USES THE CALL LIGHT APPROPRIATELY FOR BOOST UP IN THE BED. NEEDED ITEMS IN REACH, PT DENIES NEEDS OF
--- NOTE | 2021-04-23 17:00 | NUR ---
Medications reconciled by pharmacy using pharmacy records
--- NOTE | 2021-04-23 17:00 | NUR ---
Patient is receiving antibiotic therapy, currently consisting of ceftriaxone, clindamycin and vancomycin. Pharmacy is dosing and monitoring vancomycin. Current vancomycin dose is 750mg q 12 hrs
--- NOTE | 2021-04-23 18:02 | NUR ---
PT IS VOCAL AND TEARFUL BECAUSE OF AN INCONTINANT BM. RANDAL RASHID CLEANED BACKSIDE OF PT. KISER EMPTIED. PT IS CALMER NOW AND RESTING IN BED WITH EYES CLOSED. NO FURTHER NEEDS AT THIS TIME
--- NOTE | 2021-04-23 18:19 | NUR ---
PT ENCOURAGED TO GET UP TO BSC FOR BM SHE IS VERY TEARFUL AND REFUSES DESPITE ENCOURAGEMENT AND REMINDERS OF NEED TO SITZ BATH AFTER BM. PT CONTINUES TO REFUSE. ASSISTED TO USE BED MCPHERSON THEN DID LEE ANN CARE. WARM WATER MCPHERSON USED TO FLUSH LEE ANN AREA REPEATEDLY. PT CRIES DURING CLEAN UP PROCESS AND TURNING EVENTUALLY CALMS. EDUCATION PROVIDED AND ENCOURAGEMENT. PT STATES SHE CAN'T EVEN SIT UP, HOWEVER NOTED PT GRAB THE RAIL AND TURN HERSELF OVER INCLUDING SHIFTING HER HIPS SEVEAL INCHES TO ACCOMODATE BEDPAN.
--- NOTE | 2021-04-23 19:45 | NUR ---
PATIENT RESTING QUIETLY IN BED, EYES CLOSED, RESPRATIONS ARE REGULAR AND EVEN, CALL LIGHT IN REACH. RT EDWARDS AND THIS RN BOTH JUST CHECKED IN ON THE PATIENT AND THIS RN RECEIVED REPORT FROM RANDAL RASHID. PATIENT HAS NO CURRENT CARE NEEDS AT THIS TIME.
--- NOTE | 2021-04-23 21:00 | NUR ---
MANDY ZHANG BY THIS RN AND COUGH MEDICATION GIVEN AT THIS TIME PER PATIENT REQUEST. PATIENT DENIED THE NEED FOR PAIN MEDICATION, BUT DID WANT ANXIETY MED, BUT WHEN MED GIVEN TO PATIENT IN CUP SHE DECIDED SHE NO LONGER WANTED IT AND THIS RN WASTED IT. PATIENT HAS NO OTHER NEEDS AT THIS TIME. THIS RN WILL BE BACK TO DO ASSESSMENT SOON, PATIENT IS CURRENTLY TALKING WITH HER SPOUSE AND CHILDREN ON THE PHONE. CALL LIGHT IS IN REACH.
--- NOTE | 2021-04-23 21:45 | NUR ---
V/S AND I&O'S DONE. 3 PA. USED THE BEDSIDE COMMODE FOR SITZ BATH. KIRILL LIFT TRANSFER. CHANGED BED LINEN. PATIENT IS BACK IN BED. WARM BLANKET PROVIDED. SCD'S ON. CALL LIGHT WITHIN REACH.
--- NOTE | 2021-04-23 21:50 | NUR ---
THIS RN AND SANDY GO GETTING PATIENT UP TO PERFORM SITZ BATH. PATIENT GOT NAUSEATED AFTER SITTING ON THE BED SIDE. 4MG IV ZOFRAN GIVEN AND PM CLEOCIN IV NO RUNNING. PATIENT WAS GOING TO TRY AND WALK TO THE BATHROOM, BUT SAYS SHE IS TOO WEAK TO WALK INTO THE BAHROOM SO SITZ BATH SET UP ON BEDSIDE COMMODE AND PATIENT PIVOTED 2 PERSON ASSIST ONTO THE COMMODE. THIS RN AND SANDY GO REMAIN IN THE ROOM.
--- NOTE | 2021-04-23 22:15 | NUR ---
PATIENT HAVING 10/10 PAIN NOW SITTING ON SITZ BATH AND 2 PO PERCOCET GIVEN. PREPARING TO GET PATIENT BACK TO BED. THIS RN AND SANDY GO REMAIN IN THE ROOM.
--- NOTE | 2021-04-23 22:42 | NUR ---
IN pt ROOM TO ASSIST WITH TRANSFER FROM BSC TO BED. pt WEAK, STANDING POSITION WITH 3 NURSING STAFF ASSIST. pt STATES "I CAN'T STAND". LOWERS SELF TO KNEES. pt HOYERED WITH SLING TO BED AT THIS TIME. WARM BLANKET PROVIDED. PRIMARY RN AND BACTERIOLOGIST PHARMACEUTICAL REMAIN IN ROOM.
--- NOTE | 2021-04-23 22:45 | NUR ---
TIS RN ASKED AAYUSH HEMATOLOGY TECHNOLOGIST TO COME ASSIT ME AND SANDY GO TO GET PATIENT BACK INTO BED PATIENT IS NOT SURE SHE IS STRONG ENOUGH. SITZ BATH WASHED OUT A FAIR AMOUNT OF BROWN SEDIMENT TYPE DRAINAGE. 3 PERSON ASSIST TO STAND, WHICH PATIENT DID, BUT THEN SHE SAID HER RIGHT LEG WAS GETTING TO WEAK TO TURN OR STEP, SO PATIENT LOWERED TO HER KNEES BY THESE 3 STAFF AND KIRILL LIFT BROUGHT IN AND PATIENT LIFETED BACK INTO BED. CALL LIGHT IN REACH, WARM BLANKET GIVEN, AND PATIENT TIRED BUT COMFORTABLE BEING BACK IN BED. PERIRECTAL DRAIN AREA DRIED AND WOUND OPENINGS ARE PINK. PATIENT HAS NO OTHER CARE NEEDS AT THIS TIME. BED IN LOW POSITION AND VACOMYCIN IS RUNNING. LIGHTS TURNED DOWN AND PATIENT DENIED ANY OTHER CARE NEEDS AT THIS TIME.
--- NOTE | 2021-04-23 23:44 | NUR ---
IV ANTIBIOTICS ARE ALL IN AND PICC LINE FLUSHED WITH 20MLS NS AND LOCKED WITH HEP-LOCK FLUSH. PATIENT'S PAIN IS DOWN BETWEEN 1-2. PATIENT'S NAUSEA IS GONE AND SHE REQUESTED YOGURT TO EAT WHICH WAS GIVEN. CALL LIGHT IS IN REACH.
--- NOTE | 2021-04-24 03:04 | NUR ---
PATIENT RESTING QUIETLY IN LOW FOWLERS POSITION AND PATIENT IS ABLE TO ROLE HERSELF FROM SIDE TO SIDE. PATIENT'S EYES ARE CLOSED, RESPIRATIONS ARE REGULAR AND EVEN, AND CALL LIGHT IS IN REACH. NO CURRENT CARE NEEDS AT THIS TIME.
--- NOTE | 2021-04-24 05:28 | NUR ---
PATIENT CALLED FOR COUGH MEDICINE AND THIS RN GAVE IT AND STARTED AM ANTIBIOTIC. PATIENT FEELING ANXIOUS ,BUT REFUSING ANXIETY MEDICATION AND PATIENT DENIES PAIN. 2 WARM BLANKETS GIVEN, ASSESSMENT UNCHANGED, VS STABLE, AND CALL LIGHT IS IN REACH.
--- NOTE | 2021-04-24 07:49 | NUR ---
Patient sleeping in bed, eyes closed, respirations even and non labored. Patient has no distress. Personal supplies and call light within reach.
--- NOTE | 2021-04-24 10:12 | NUR ---
Patient in bed eating breakfast watching tv at this time. Patient reports her pain is 6/10, she declined pain medication and reports she needs to eat more food before taking. Discussed with patient regarding today's plan of care, pt receptive at this time. Encouraged patient to take pain medication to ensure pain is controlled so she can get up for her sitz bath soon.
--- NOTE | 2021-04-24 10:15 | NUR ---
PT AWAKE IN BED TALKING WITH RANDAL ESTRADA. CALL LIGHT WITHIN REACH. NO FURTHER NEEDS AT THIS TIME.
--- NOTE | 2021-04-24 10:29 | NUR ---
Patient requesting staff leave her alone so she can have a short nap.
--- NOTE | 2021-04-24 15:32 | NUR ---
Patient worked with physical therapy-see his notes. Patient very tearful at this time and reports she is painful. This RN discussed Dr. Cain's goals for today regarding shower and sitz bath. This RN told patient I would return after a while to get her back up for a sitz bath. Patient receptive to plan of care at this time.
--- NOTE | 2021-04-24 16:48 | NUR ---
PT TRANSFERRED TO SHOWER CHAIR BY [employer] AND THREE STAFF. PT NEEDED ASSISTANCE IN THE SHOWER, WOUND WAS RINSED WITH WATER WHILE IN THE SHOWER. PT IS NOW BACK IN BED WITH CALL LIGHT IN REACH, CHATTING WITH ON THE PHONE. NO FURTHER NEEDS AT THIS TIME.
--- NOTE | 2021-04-24 16:58 | NUR ---
Patient able to sit in shower and soak nelly-rectal wound. Pen carina intact, scant light brown colored drainage noted from rental wound.
--- NOTE | 2021-04-24 18:03 | NUR ---
Two tabs Percocet 7.5/325mg po and vistaril 25mg po admin for reports of 9/10 rectal pain and anxiety.
--- NOTE | 2021-04-24 18:27 | NUR ---
PATIENT SITTING UP IN BED WORKING ON DINNER. VITALS AND I&O'S CHARTED. CALL LIGHT IN REACH. NO FURTHER NEEDS AT THIS TIME.
--- NOTE | 2021-04-24 18:42 | NUR ---
Patient's bedside blood sugar reading was 53 @ 1728, then 50 @ 1736 after a snack then 49 to follow another snack. Dr. Johnson notified. New orders admin per his orders for 25ml of dextrose 50% IV and cont. D5LR @ 125ML/HR. Patient awake and speaking with staff appropriately. Dinner at bedside, patient eating slowly. Education provided to patient regarding plan of care and blood sugar monitoring. Patient receptive to plan of care. Call light within reach.
--- NOTE | 2021-04-24 19:25 | NUR ---
IN ROOM REPORT GIVEN TO THIS RN BY RANDAL CERVANTES. PATIENT STATES,"I AM EXHAUSTED. I CAN'T GET UP AGAIN TONIGHT." PER REPORT PATIENT HAD A VERY BUSY DAY. PATIENT SAYS HER PAIN IS DOWN TO A COMFORTABLE LEVEL. PATIENT DENIED ANY CARE NEEDS AT THIS TIME AND CALL LIGHT IS IN REACH. LIGHTS TURNED DOWN AT PATIENT'S REQUEST.
--- NOTE | 2021-04-24 21:30 | NUR ---
PATIENT CALLED AND ASKED FOR SOME HOT TEA. IRAIS CHARGE NURSE GOT THE TEA FOR THE PATIENT AND IS TALKING WITH HER KNOW.
--- NOTE | 2021-04-24 21:55 | NUR ---
KISER CARE DONE. V/S AND I&O'S DONE AND CHARTED.
--- NOTE | 2021-04-24 22:24 | NUR ---
PATIENT SAYS HER PAIN IS COMFORTABLE AT 2/10 AND DOES NOT DESIRE ANY PAIN MEDICATION AT THIS TIME. PATIENT'S BED CHUX CHANGED STILL SOME WATERY DRAINAGE COMING OUT FROM PATIENT'S SHOWER. EVERYWHERE AROUND THE DRAIN WASHED UP AND TAMPED DRY. SANDY GO IN ROOM ASSISTING. KISER DRAINING WELL AND KISER CARE DONE BY SANDY GO. PATIENT SAYS SHE IS GOING TO FALL IF WE TRY AND GET HER UP TO USE THE SITZ BATH. PATIENT LOWERED TO HER KNEES LAST NIGHT AND HAD TO BE HOYERED BACK TO BED. PATIENT JUST HAD A SHOWER. DISCUSSED WITH IRAIS TEE AND PATIENT CAN CONTINUE RESTING SHE JUST HAD A SHOWER AND IS ADAMANT SHE WILL NOT BE ABLE TO STAND. PATIENT'S CALL LIGHT IS IN REACH AND PATIENT DENIES ANY OTHER CARE NEEDS AT THIS TIME.
--- NOTE | 2021-04-25 00:04 | NUR ---
PATIENT SAYS SHE IS STILL COMFORTABLE,"I'M STILL DOING GOOD. I DON'T NEED ANYTHING AT THIS TIME". CHECKED PATIENT'S PICC LINE SITE AND IT IS WNL. PATIENT HAD NO OTHER CARE NEEDS AT THIS TIME. CALL LIGHT IS IN REACH.
--- NOTE | 2021-04-25 02:16 | NUR ---
THIS RN WENT IN TO HANG A NEW IV BAG. ASKED PATIENT HOW SHE WAS DOING AND SHE SAID,"NOT TO BAD". PATIENT DENIED NEED FOR PAIN MEDS AND HAD NO OTHER CARE NEEDS AT THIS TIME. CALL LIGHT IS IN REACH.
--- NOTE | 2021-04-25 03:34 | NUR ---
PATIENT CALLED AND IS HAVING SOME RIGHT HIP AND BUTTOCK PAIN AND ALSO A SORE THROAT. PATIENT REQUESTED COUGH MEDICATION AND PAIN MEDICATION WHICH WERE GIVEN ALONG WITH SOME MEDICATION FOR ANXIETY. PATIENT SAYS HER THROAT IS VERY SORE AND REQUESTED SOME WARM TEA, WHICH WAS GIVEN. PATIENT HAD NO OTHER CARE NEEDS AT THIS TIME. PATIENT RATED HER PAIN 6/10.
--- NOTE | 2021-04-25 05:51 | NUR ---
SANDY GARY ASSITED THIS RN AND PATIENT'S VS DONE AND ARE STABLE. ASSESSMENT ESSENTIAL UNCHANGED. NEW CHUX PLACED UNDER PATIENT AND DRAIN AREA CLEANED FROM LIGHT BROWN LIQUID DRAINAGE. PATIENT'S PAIN IS 2/10 AT THIS TIME AND SHE DENIES ANY NEED FOR FURTHER PAIN MEDICATION. PATIENT ABLE TO ROLL HERSELF AROUND IN THE BED AND MAYBE STRONG ENOUGH THIS AM TO GET UP FOR ANOTHER SITZ BATH. AM LABS DRWAN FROM PICC LINE, EASY DRAW AND WASTE, FLUSHED WITH 20MLS NS AND IV RUNNING AGAIN. POSI-CAP CHANGED. PATIENT'S PHONE HOOKED UP TO HIDE MILL MAN AND BATTERIES REPLACED IN PATIENT'S FAN. PATIENT HAS NO OTHER CARE NEEDS AT THIS TIME. CALL LIGHT IN REACH AND LIGHTS TURNED DOWN.
--- NOTE | 2021-04-25 07:05 | NUR ---
this rn received report from matthew momin. pt resting in bed. pt reports that her throat still hurts this am 07/06. pt reports that she had meds recently so she will wait and try tea at breakfast
--- NOTE | 2021-04-25 08:17 | NUR ---
this rn in pts room to give morning meds. pt laying flat in bed. call light within reach. pt still reporting pain in her throat. this rn spoke to pts around 0745- he stated that pt had to have a tooth removed prior hospital stay. pt does grimace when she rolls to allow this rn to inspect her drain but pt able to do so without much complaint. drain appears to have a light brown/ white drainage coming out pt did refuse her culturelle this am, pt stated "it really afftects me". pt refused before this rn could get more education to pt about it.
--- NOTE | 2021-04-25 09:44 | NUR ---
ROSAURA FROM NUTRITION IN ROOM AT THIS TIME.
--- NOTE | 2021-04-25 09:45 | NUR ---
PATIENT STATES HER THROAT IS SORE TODAY. SHE SAID IT IS GETTING WORSE AND HER NURSE KNOWS ABOUT IT. SHE FELT HUNGRY FOR THE FIRST TIME IN AWHILE LAST NIGHT FOR DINNER. AT HOME SHE DOESN'T EAT CONSISTENTLY. HERE SHE IS TRYING TO EAT MORE CONSISTENTLY. I EXPLAINED THAT IS A GOOD THING BECAUSE FOOD CAN HELP HER WOUNDS TO HEAL. I EXPLAINED PROTEIN FOODS SUCH CHICKEN, EGGS, STEAK, SALMON, ETC. DO NOT CONTAIN CARBS AND ARE IMPORTANT FOR HEALING. SHE IS ON A 60 GM CONSISTENT CARB DIET WHICH I ALSO EXPLAINED TO HER. SHE EXPRESSES UNDERSTANDING. WILL CONTINUE TO MONITOR.
--- NOTE | 2021-04-25 10:15 | NUR ---
POSTFALL NOTE AROUND THIS TIME BETWEEN [id number] PT FELL. SITUATION: PT WAS ABLE TO STAND TRANSFER FROM BED WITH ASSISTANCE FROM VINH IN OCCUAPTIONAL THERAPY. PT WAS ABLE TO STAND USING NONSKID SOCKS, GAIT BELT, FWW. ONCE PT WAS STANDING SHE BEGAN TO BECOME ANXIOUS, STATING "IM SCARD" THIS RN ASKED PT WHY SHE WAS SCARD, PT DIDN'T RESPOND, THIS RN ASKED SPECIFCALLY IF PT WAS SCARD OF STANDING, PT DENIED. PT WAS ABLE TO BE ASSISTED TO BEDSIDE COMMODE FOR SITZ BATH. PT TOLERATED OKAY, A BIT SHAKY GETTING COMMODE. PT WAS NOT CONTROLLED IN HER SITTING DOWN ON THE COMMODE. PT ABLE TO TOLERATED SITTING ON SITZ BATH FOR ABOUT 10MINS. PT STATED THAT SHE WAS GETTING SORE DUE TO POSITION ON THE COMMODE. PT IMPULSIVELY STARTED TO STAND WITHOUT SCOOTING TO THE EDGE OF THE COMMODE. GAIT BELT IN PLACE, WALKER IN PLACE, NONSKID SOCKS IN PLACE. PT DID HAVE ASSISTANCE FROM THIS RN AND [facility] OCCUPATIONAL THERAPY. PT DID NOT MAKE IT TO A FULL STAND POSITION OR GET HER HANDS ON THE WALKER BEFORE SHE CRUMPLED IN A CONTROLLED MANNER TO THE GROUND. THIS RN PLACED CALL LIGHT ON AND SONIA DELGADO IN ROOM TO ASSIST. PT REQUIRED A KIRILL LIFT TO GET HER BACK IN BED DUE TO PTS EMOTIONAL STATE AFTER THE CONTROLLED FALL. PT PROVIDED PERCOCET AND VISTARIL AND MINT TEA AFTER BACK IN BED. PAIN /. DRAIN WNL. PICC LINE WNL. VINH FROM OCCUPATIONAL THERAPY REMIANED IN ROOM WITH PT TO ASSIST HER TO CALM DOWN.
--- NOTE | 2021-04-25 11:30 | NUR ---
Spoke with pt and discussed her knees giving out when she attempted to stand today. Pt became very upset stating she is tired of everyone accusing her of faking it. I explained I am not accusing her of anything. Discussed I am here to help her with a plan. We then discussed options of SNF for rehab, OP therapy, and HH. I did discuss with her, I don't feel its a good idea to go home if she cannot walk or transfer. I made it clear this her decision and I cannot force her to go anywhere. We also discussed she has steps into and in her home. This will be difficult to navigate if she cannot walk. She states she needs to discuss with her spouse. Informed I will return later to discuss her decision.
--- NOTE | 2021-04-25 11:30 | NUR ---
THIS RN IN PTS ROOM PER PT REQUEST AND TO START ANTIBIOTCS. PT STATES THAT SHE FEELS PRESSURE IN ABDOMEN- THINKS IT IS AN AIR LOCK IN KISER, THIS RN MOVED KISER- PT STATES THIS FEELS BETTER. PAIN STATES THAT PAIN IS IMPORVING AT THIS TIME.
--- NOTE | 2021-04-25 13:09 | NUR ---
RANDAL TURNER REQUESTED I NOT DISTURB PT AT THIS TIME. PT HAS HAD A DIFFICULT AM. WILL FOLLOW NEEDED
--- NOTE | 2021-04-25 13:45 | NUR ---
Notified by Dr Johnson he spoke with pt and she let him know I had discssed placement with her and would return later with infor for SNF. She plans on discussing with her spouse.
--- NOTE | 2021-04-25 13:51 | NUR ---
PT AWAKE IN BED PLAYING ON THE PHONE. CALL LIGHT WITHIN REACH. NO FURTHER NEEDS AT THIS TIME
--- NOTE | 2021-04-25 14:51 | NUR ---
KADEN FROM PHYSICAL THERAPY ATTEMPTED TO WORK WITH PT. PT REFUSED TO WORK WITH HIM AT THIS TIME.
--- NOTE | 2021-04-25 15:03 | NUR ---
Returned to check with pt if she has made a decision for placement for rehab. She states she is on her own with this decisions as it caused her spouse to cry. Claus for PT present and working with pt. We discussed my previous discussion with pt and he also agreed it would be difficult for pt to dc is she cannot walk. I will fax chart to [facility], as I spoke with Lopez earlier. Took a print out of [facility] info to pt.
--- NOTE | 2021-04-25 16:17 | NUR ---
PT APPEARS TO BE RESTING COMFORTABLY AT THIS TIME. RESPIRATIONS AND CALL LIGHT NOTED
--- NOTE | 2021-04-25 17:59 | NUR ---
PT AWAKE IN BED, AND REPORTS 5/10 PAIN. RN YUE NOTIFED. CALL LIGHT WITHIN REACH. NO FURTHER NEEDS AT THIS TIME
--- NOTE | 2021-04-25 18:03 | NUR ---
THIS RN RECEIVED REPORT FROM CALVIN DELGADO THAT PT HAD A FEVER. THIS RN ALERTED MD TO THIS. NEW ORDERS FOR BLOOD CULTURES PLACED. TYLENOL TO BE GIVEN AFTER BLOOD CUTURES ARE DRAWN.
--- NOTE | 2021-04-25 19:01 | NUR ---
pt refused lab draw after lab attempted to poke pt and was unable to get blood.
--- NOTE | 2021-04-25 19:13 | NUR ---
RECEIVED REPORT, PT DENIES NEEDS. CALL LIGHT IS CLOSE.
--- NOTE | 2021-04-25 21:39 | NUR ---
ASSISTED PRIMARY RN NEEL. SITZ BATH DONE. KISER CARE DONE.
--- NOTE | 2021-04-25 21:40 | NUR ---
ADMINISTERED EVENING MEDICATIONS. PT REPORTS PAIN TOLERABLE AT 1/10 AT THIS TIME. LOOP DRAIN INPLACE LIGHT BROWN DRAINAGE NOTED ON CHUX PAD. DID SITZ BATH WITH WARM WATER IN BED ON CLEAN BEDPAN RUNNING THE WATER OVER THE WOUNDSITE. PT TOLERATED WELL. PT HAS BRUISE TO R BUTTOCK AND VARIOUS BRUSIES. PT REPORTS SORE THROAT IS IMPROVING AND STATES SHE WAS NOT ABLE TO EAT MUCH DINNER. SANDWICH BOX PROVIDED. PT DENIES FURTHER NEEDS AT THIS TIME. CALL LIGHT IS CLOSE.
--- NOTE | 2021-04-25 23:24 | NUR ---
IN ROOM TO ADMINISTER IV VANCO. PT ALSO REQUESTED ROBITUSSIN. HOT WATER PROVIDED FOR TEA AND PT DENIES FURTHER NEEDS AT THIS TIME. CALL LIGHT IS CLOSE.
--- NOTE | 2021-04-26 00:07 | NUR ---
PT CALLED, HAD INCONTINENT BM IN BED AND STATES SHE NEEDS TO GO MORE. PT SAT ON BEDPAN AND THEN CLEANED UP. GAVE PT SITZ BATH AFTER BM TO FURTHER CLEAN PT. SHE DENIES FURTHER NEEDS AT THIS TIME. CALL LIGHT IS CLOSE.
--- NOTE | 2021-04-26 00:10 | NUR ---
ASSISTED PRIMARY RN NEEL. PATIENT HAD INCONTINENT BOWEL MOVEMENT AND SITZ BATH DONE AFTER TO BE SURE IT IS WELL CLEANED. KISER CARE IS DONE AGAIN WELL. WARM BLANKET PROVIDED.
--- NOTE | 2021-04-26 00:25 | NUR ---
IV ABX NOW COMPLETE, PICC LINE FLUSHED WITH GOOD BLOOD RETURN. LINE HEPLOCKED. PT DENIES FURTHER NEEDS, CALL LIGHT IS CLOSE.
--- NOTE | 2021-04-26 01:57 | NUR ---
PT IS RESTING WITH EYES CLOSED, RR IS EVEN AND NONLABORED. CALL LIGHT IS CLOSE.
--- NOTE | 2021-04-26 02:41 | NUR ---
PT CALLED STATING HER THROAT HURTS. SHE RATES PAIN AT 5/10. ADMINISTERED 5MG OXYCODONE AND VISTARIL FOR ANXIETY. PT STATES SHE IS ANXIOUS AND IS MOANING WITH BREATHING. ATTEMPTED TO VISUALIZE PT'S THROAT BUT SHE WAS TOO PAINFUL TO STICK HER TOUNGE OUT AND OUT OF THE WAY. PROVIDED PT HOT WATER FOR HER TEA BAGS FROM HOME. SHE DENIES FURTHER NEEDS AT THIS TIME. CALL LIGHT IS CLOSE. SHE IS WATCHING VIDEOS ON HER PHONE FOR DISTRACTION.
--- NOTE | 2021-04-26 04:14 | NUR ---
PT IS RESTING WITH EYES CLOSED, RR IS EVEN AND UNLABORED. CALL LIGHT IS CLOSE.
--- NOTE | 2021-04-26 06:15 | NUR ---
IN ROOM TO DRAW BLOOD FROM PICC LINE FOR LAB. PT REQUESTED ROBITUSSIN FOR HER THROAT PAIN. TOLD PT IT IS TOO EARLY FOR IT NOW BUT OFFERED OTHER PAIN MEDICATION OR LOZENGE. PT DENIES OTHER PAIN MEDS AT THIS TIME. SHE WOULD LIKE THE ROBITUSSIN SOON IT IS AVAILABLE. PT DENIES FURTHER NEEDS, CALL LIGHT IS CLOSE.
--- NOTE | 2021-04-26 06:52 | NUR ---
IN ROOM TO ADMINISTER ROBITUSSIN. PT DENIES FURTHER NEEDS AT THIS TIME. CALL LIGHT IS CLOSE.
--- NOTE | 2021-04-26 06:59 | NUR ---
PT CRYING STATING HER THROAT IS 6/10 PAIN. OFFERED LOZENGE AND PT DENIED. OFFERED OXYCODONE AND PT AGREED. ADMINISTERED 5 MG OXYCODONE. PT DENIES FURTHER NEEDS AT THIS TIME. CALL LIGHT IS CLOSE.
--- NOTE | 2021-04-26 07:10 | NUR ---
THIS RN RECEIVED REPORT FROM LYNSEY TEE. PT AWAKE AND STATES THAT PAIN IS IMPROVING THIS AM AFTER PAIN MEDS GIVEN EARLIER. NO NEEDS AT THIS TIME, CALL LIGHT WITHIN REACH.
--- NOTE | 2021-04-26 08:10 | NUR ---
THIS RN IN PTS ROOM TO GET PTS BLOOD SUGAR. PT DOING WELL, PT STATES THAT SHE IS EXCITED THAT SHE IS HUNGRY THIS AM.
--- NOTE | 2021-04-26 08:30 | NUR ---
THIS RN BACK IN PTS ROOM TO GIVE PTS MORNING MEDS. PT STATES THAT FOOD IS GOOD THIS AM AND STATES AN UNDERSTANDING WITH PLAN OF CARE OF DOING THERAPIES TOGETHER THIS AM.
--- NOTE | 2021-04-26 10:00 | NUR ---
Stopped to see pt and staff are working with her at this time. Per 829 meeting, pt will dc to SNF for rehab.
--- NOTE | 2021-04-26 10:00 | NUR ---
THIS RN IN PTS ROOM TO ASSIST WITH CHRISTIE FROM OCCUPATIONAL THERAPY AND CORINNE FROM PHYSICAL THERAPY TO GET PT TO STAND THIS AM. STAFF USED KIRILL SLING TO ALLOW PT TO WORK ON HER LEG STRENGTH. ON PTS FIRST STAND ATTMPT, PT BECAME VERY FRUSTRATED, STATING THAT SHE WANTED TO GIVE UP AND NOT PARTICIPATE USING MANY OBCENTITITES AT THE FRUSTION OF HERSEFL OF NOT BEING ABLE TO STAND. AFTER DISCUSSION FROM STAFF PT WILLING TO ATTEMPT AGAIN. THIS RN STEPPED OUT, WILL DO SITZ BATH LATER ON IN THE DAY AND ALLOW THERAPIES TO GET PT STRONGER AT THIS TIME. REPORT GIVEN TO RN STATED THAT PT WAS ABLE TO STAND ANOTHER 2 TIMES, PT WAS ABLE TO STAY STANDING FOR CLOSE TO A MINUTE, PT WAS VERY EXCITED!
--- NOTE | 2021-04-26 10:46 | NUR ---
RT COLLECTED COVID 19 SWAB WITH NO COMPLICATIONS. RT USED THE CEPHEID RAPID TEST THROUGH IN HOUSE LAB PER DR REQUEST AT THIS TIME.
--- NOTE | 2021-04-26 11:01 | NUR ---
Pulse is 105. Patient is in bed with call light in reach.
--- NOTE | 2021-04-26 12:00 | NUR ---
THIS RN IN PTS ROOM TO GET BLOOD SUGAR. PT STATES THAT HER LEE ANN RECTUM AREA IS BECOMING PAINFUL, 4/10. 5MG OXY GIVEN AND VISTARIL ALSO GIVEN AT THIS TIME.
--- NOTE | 2021-04-26 14:00 | NUR ---
Spoke with Cheli and she is much more positive today. She is wanting to cont. to work with PT, staff helped her use a sling to prevent falling and she feels after a couple of tries this was very beneficial. She states she has PTSD, and history of trauma. She states she has trust issues and this has been very difficult for her. We discussed our concern is for her to not fall a get hurt. She also states he children will visit today and she really needs this. At this time she wants to remain open if she can go home and not to rehab. I let her know this is fine to keep options open.
--- NOTE | 2021-04-26 14:04 | NUR ---
Pulse is 107. Call light is in reach. Patient is in bed.
--- NOTE | 2021-04-26 14:30 | NUR ---
PTS CHILDREN IN TO SEE HER AT THIS TIME, ALL WEARING MASKS APPROVED BY HANNA MORATAYA AND JOSÉ LUIS KEITH RN.
--- NOTE | 2021-04-26 15:10 | NUR ---
THIS RN IN PTS ROOM TO DO PTS SITZ BATH. PT TOLERATED WELL- PT WAS ROLED ON HER SIDE TO DO BATH. PT TOERATED WELL. MINIMAL AMOUNT OF DRAINAGE OUT OF LEE ANN AREA AT THSI TIME THIS RN ALSO PULLED PTS KISER AT THIS TIME PER MD ORDER. PT TOLERATED WELL AND UNDERSTOOD TEACHING.
--- NOTE | 2021-04-26 17:00 | NUR ---
THIS RN IN PTS ROOM TO GIVE INSUIN. PT STATES THAT SHE IS DOING WELL. CHEEKS APPEAR FLUSHED. THIS RN ASSESSED TEMP 100.2 ORAL. THIS RN SHOWED PT TO USE IS- PT COUGHED WHILE USING AND STATES SHE DOESN'T LIKE IT DUE TO PAIN IN THROAT. THIS RN PROVIDED PT WITH ROBITUSSIN AND ENCOURAGED PT TO USE IS.
--- NOTE | 2021-04-26 19:02 | NUR ---
Patient is going to try to get some sleep. Call light is in reach.
--- NOTE | 2021-04-26 19:20 | NUR ---
bladder scanned pt for 641. md to be notified
--- NOTE | 2021-04-26 19:28 | NUR ---
pt has attempted to void a few times since having rob out at 1515. pt has no urge to void at this time. notified. phone order to place rob back in place. pt understandable
--- NOTE | 2021-04-26 19:32 | NUR ---
RECEIVED REPORT, YUE BACK IN ROOM AT THIS TIME REPLACING THE KISER CATH.
--- NOTE | 2021-04-26 21:24 | NUR ---
IN ROOM TO ASSESS PT AND ADMINISTER MEDICATIONS. PT REPORTS SOME MILD PAIN AT THIS TIME AND DENIES NEED FOR PAIN MEDS. WILL RETURN AND DO SITZ BATH IN A LITTLE BIT. VS AND I&O'S ENTERED, ENC PT TO COUGH/DEEP BREATHE OR USE IS. PT DENIES FURTHER NEEDS AT THIS TIME. CALL LIGHT IS CLOSE.
--- NOTE | 2021-04-26 23:35 | NUR ---
IN ROOM TO DO SITZ BATH AND ADMINISTER VANCO. LEE ANN/RECTAL AREA HAS IMPROVED BUT CONTINUES TO HAVE BROWN DRAINAGE AND PT REPORTS DECREASED PAIN SINCE MOVING AROUND EARLIER IN DAY. PT REPORTS USING I.S. MULTIPLE TIMES & COUGHING/DEEP BREATHING. HER CAME TO VISIT FOR A WHILE. PT DENIES NEED FOR PAIN AND ANXIETY MEDICATION AT THIS TIME. CALL LIGHT IS CLOSE.
--- NOTE | 2021-04-26 23:45 | NUR ---
IN TO ASSIST RN WITH CARES, SHAILA AND JACQUELIN PROVIDED, ROOM TIDIED, NO FURTHER NEEDS AT THIS TIME
--- NOTE | 2021-04-27 00:25 | NUR ---
IN TO ASSIST RN WITH LEE ANN CARE NELDA SIERRA NEEDS
--- NOTE | 2021-04-27 00:32 | NUR ---
PT HAD BM ON BEDPAN. PT IS NOW CLEANED UP AND 2ND SITZ BATH PROVIDED. PT DENIES NEEDING PAIN MEDICATION AT THIS TIME AND DENIES FURTHER NEEDS. CALL LIGHT IS CLOSE.
--- NOTE | 2021-04-27 00:45 | NUR ---
IV ABX COMPLETE, PICC LINE FLUSHED WITH GOOD BLOOD RETURN. LINE IS HEPLOCKED. PT DENIES FURTHER NEEDS. CALL LIGHT IS CLOSE.
--- NOTE | 2021-04-27 02:43 | NUR ---
PT CALLED COMPLAINING OF WORSENING THROAT PAIN WHICH SHE REPORTS 5/10. PT COUGHED AND WINCED IN PAIN. ADMINISTERED ROBITUSSIN, WHEN RAISING HEAD OF BED PT BEGAN FLAPPING HER HANDS AND HITTING THE BED. ASKED IF PT IS HAVING PAIN IN PERIRECTAL AREA AND SHE STATES HER THROAT IS VERY SORE. PT WHIMPERING AND CRYING. OFFERED PT PAIN MEDICATIONS AND SHE DENIES. OFFERED ICE AND TEA AND PT WANTED ICECHIPS. SHE DENIES FURTHER NEEDS AT THIS TIME. CALL LIGHT IS CLOSE.
--- NOTE | 2021-04-27 04:47 | NUR ---
PT IS RESTING WITH EYES CLOSED, RR IS EVEN AND UNLABORED. CALL LIGHT IS CLOSE.
--- NOTE | 2021-04-27 07:28 | NUR ---
IN ROOM TO ADMINISTER OXYCODONE FOR 4/10 PAIN, AND VISTARIL FOR ANXIETY. PT DENIES FURTHER NEEDS AT THIS TIME. CALL LIGHT IS CLOSE.
--- NOTE | 2021-04-27 08:30 | NUR ---
REPORT RECEIVED FROM NIGHT RN AND PT. CARE RESUMED. PT IS ALERT AND ORIENTED. SHE APPEARS ANXIOUS AT TIMES. ADMIN. VISTERIL AND OXYCODONE FOR PAIN AND ANXIETY. SHE C/O MODERATE SORE THROAT AND MILD PAIN AT INCISION SITE. LEE ANN/RECTAL ABCESSES ARE DRAINING LARGE AMOUNTS OF BROWN/YELLOW FLUID THAT SATURATED CHUX. CHUX REPLACED. HUNTER DRAIN IN PLACE. AREA IS RED AND BLANCHABLE AND ABCESS SITES ARE DRY WITH SLOUGH PRESENT. DISCUSSED POC, AMBULATING, SAFETY, ANXIETY, AND MEDS. PT. LEFT RESTING WITH CALL LIGHT IN REACH.
--- NOTE | 2021-04-27 10:00 | NUR ---
Spoke with pt and she states she saw her children yesterday. Visit did not go as well as planned and her spouse took the kids home. She is planning on working with PT using sling and connie today and getting into the shower. 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 I let her know, I could check with [facility] in [place] to see if they have beds available. We again discussed pt will need to be able to walk to go home. She requires 2-3 people to assist her with a connie lift. Let her know I will check with [facility].
--- NOTE | 2021-04-27 10:48 | NUR ---
Patient is in bed with call light in reach.
--- NOTE | 2021-04-27 10:56 | NUR ---
ROUNDING ON PT. SHE STATES SHE IS FEELING DISCOURAGED. SHE STATES GLASSWORKER TOLD HER SHE IS WEAK AND IT "IS NOT THE RIGHT THING TO SAY TO SOMEONE IN MY CONDITION". ALSO STATES IT MAKES HER WANT TO GIVE UP. THERAPEUTIC COMMUNICATION USED AND PT. REASSURED. PT. AGREEABLE TO WORKING WITH P.T. SOON. SHE REFUSES PAIN MED AND REPORTS MODERATE THROAT PAIN. PT. LEFT RESTING WITH TRAVEL CLERK AT BEDSIDE.
--- NOTE | 2021-04-27 11:00 | NUR ---
Notified by RN pt was cussing and stating I called her weak. I let her know this is not what was said, I did discuss with pt the need to be able to walk to go home. I called and spoke with Izabela at [facility], there are no beds open until the end of next week.
--- NOTE | 2021-04-27 14:55 | NUR ---
ROUNDING ON PT. SHE STATES SHE HAS A TOLERABLE AMOUNT OF PAIN AT THE SITE OF THE ABCESSES IN LEE ANN/RECTAL AREA. HUNTER DRAIN IN PLACE AND DRAINING A LARGE AMOUNT OF BROWN/ YELLOW DRAINAGE. PT. DENIES FURTHER NEEDS AT THIS TIME. LEFT RESTING WITH CALL LIGHT IN REACH.
--- NOTE | 2021-04-27 17:27 | NUR ---
Temp is 99.1, orally. Rn was notified. Patient is in bed eating dinner and sitting up with call light.
--- NOTE | 2021-04-27 18:29 | NUR ---
Patient uses the bedpan, 1pa. Call light is in reach and patient is comfortable again.
--- NOTE | 2021-04-27 23:22 | NUR ---
REPOSITIONS SELF IN BED, C/O INCREASED ANXIETY AND WANTING A SNACK, MEDICATED WITH VISTARIL PO, PUDING AND GRAM CRACKERS GIVE, FRESH FLUIDS AND ICE CHIPS. IV ABX INFUSING
--- NOTE | 2021-04-28 02:20 | NUR ---
Resting, eys closed, no distress, on room air, ice chips, fluids, call light at hands reach
--- NOTE | 2021-04-28 04:29 | NUR ---
PT RESTING IN BED, REQUEST PAIN MEDICATION, OXYCODONE 5MG PO PRN GIVEN AT THIS TIME, PT ASKED FOR COUGH SYRUP AND ANXIETY MEDICATIONS AT THIS TIME, EXPLAINED TO PT IT WILL BE ANOTHER HOUR BEFORE THOSE MEDICATIONS ARE AVAILABLE. PT NODDED HER HEAD YES.
--- NOTE | 2021-04-28 04:47 | NUR ---
PT WAS MEDICATED WITH OXYCODONE PER C/O PERIRECTAL AREA PAIN. ON ROOM AIR, LABILE MOOD. COOPERATIVE, FOLLOWS INSTRUCTIONS W/O PROBLEMS, HAS HELPED WITH TURNING AND REPOSITIONED W/O PROBLEMS, MOVIANG ALL EXTREMITIES WELL. INDURATION R AND LEFT BUTTOCKS INTO LABIAL AREA NOTED. OPEN AREA ABOVE BUTTOCKS AREA, SITZ BATH DONE X2, HAS HUNTER DRAIN IN PLACE, DRAINING BROWN COLORED DRAINAGE, NO ODOR, MODERATE AMOUNTS. HAD A SOFT BM. RED BUTTOCKS NOTED. BARRIER CREAM APPLIED. GENERALIZED EDEMA TRACE R HAND, 1+ LE/ANKLES AREA. TOLERATING ICE CHIPS AND FLUIDS WELL. ORAL TRUSH, RECEIVED NYASTATIN LIQUIDS AND COUGH SYRUP TO SOOTHE TROAT. NO EMESIS. NO ADVERSE REACTION TO ABX, USES CALL LIGHT
--- NOTE | 2021-04-28 05:50 | NUR ---
pt c/o sore back of throat. medicated with cough syrup w codeine liquid. c/o increased anxiety, moaning quietly, medicated with Vistaril po. denies c/o pain, was medicated earlier. helps with repositioning in bed. tolerating fluids and ice chips. f/c patent. RA PICC line patent.
--- NOTE | 2021-04-28 08:03 | NUR ---
UPDATED WHITE BOARD. PT REFUSED WARM WASHCLOTH. SANDY CARNES IN ROOM TO GET BS CHECK. CALL LIGHT WITHIN REACH, NO FURTHER NEEDS AT THIS TIME.
--- NOTE | 2021-04-28 09:21 | NUR ---
REPORT RECEIVED FROM NIGHT RN AND PT. CARE RESUMED. PT. IS EMOTIONALLY LABILE THIS MORNING IS TEARFUL AT TIMES. THERAPEUTIC COMMUNICATION USED. SHE C/O PAIN IN HER THROAT. PT. REQUESTS OXYCODONE AND REFUSES THROAT LOZENGE. LEE ANN-RECTAL ABCESS IS OPEN TO AIR AND DRAIN INTACT. CHUX HAS A LARGE AMOUNT OF BROWN DRAINAGE FROM SITE AND CHANGED. COCYX WOUND IS DRY WITH SLOUGH. GLUTEAL AREA RED BUT BLANCHABLE. PT. ABLE TO MOVE ALL EXTREMITIES AND HAS EQUAL STRENGTH. NO NEURO DEFICITS NOTED. DISCUSSED POC, MEDS AND SAFETY. PT. LEFT RESTING WITH CALL LIGHT IN REACH.
--- NOTE | 2021-04-28 14:12 | NUR ---
BROUGHT PT WARM BLANKET AND TIDIED ROOM. PT SAYS THEY FEEL MOTIVATED TO GET UP AND TAKE A SHOWER. CALL LIGHT WITHIN REACH, NO FURTHER NEEDS AT THIS TIME. RN EDSON NOTIFIED OF PT'S TEMP
--- NOTE | 2021-04-28 15:23 | NUR ---
PT. ADMIN. PAIN MED AND VALTREX. SHE STATES SHE IS UNABLE TO TAKE VALTREX DUE TO PAIN AND CAN ONLY TAKE PAIN. THIS NURSE CUT THE TABLET BUT PATIENT UNWILLING TO TAKE AND STATES "I'M SCARED I'LL CHOKE ON THEM".
--- NOTE | 2021-04-28 17:51 | NUR ---
PT EMOTIONAL AND UPSET. PT SAYS DIETARY MESSED UP THIER DINNER. PT CLAIMS THEY CALLED DOWN TO KITCHEN FOR REVISIONS 45 MINUTES AGO AND ARE STILL WAITING. PT REFUSES TO EAT ANYTHING AT ALL NOW. RANDAL SANDHU NOTIFIED. RANDAL SANDHU NOTIFIED OF TEMP ALSO. CALL LIGHT WITHIN REACH, NO FURTHER NEEDS AT THIS TIME.
--- NOTE | 2021-04-28 19:25 | NUR ---
in bed, watching tv and playing with her phone. f/c patent. warm blanket and fresh fluid given on request
--- NOTE | 2021-04-28 21:06 | NUR ---
Sitting up in bed, took HS meds with applesauce and milk and water products, it took about 10-15 minutes. no emesis. coop with assessment. no c/o pain, medicated with cough syrup w/codeine per back throat discomfort. repositions self, continues to have labile mood,easily redirectable, follows instructions afte several cues and giving her time to process information. R amr PICC line patent. f/c patent. will do Óscar buttocks assessment and sitz bath at 2230. stated understanding. On room air, no distress.
--- NOTE | 2021-04-28 22:34 | NUR ---
HAD SOFT BM, SITZ BATH DONE, BUTTOCKS WOUND CARE DONE, BARRIER CREAM, SKIN CARE. F/C PATENT, DECREASE REDNESS LEE ANN RECTAL AREA NOTED, INDURATION DECREAED. COOPERATIVE. MEDICATED WITH OXYCODONE 5MG AND VISTARIL PER C/O 11/05 PAIN AND ANXIETY. TOLERATED PROCEDURES WELL, COOPERATIVE, MOVING ALL EXTREMITIES, HELPED TURN AND REPOSITION W MINIMUM OF HELP, EFFORTS PRAISED
--- NOTE | 2021-04-28 23:56 | NUR ---
RESTING, EYS CLOSED, NO DISTRESS, ON ROOM AIR, FLUIDS AND CALL LIGHT AT HANDS REACH, F/C PATENT.
--- NOTE | 2021-04-29 00:42 | NUR ---
RESTING, EYS CLOSED, NO DISTRESS, CALL LIGHT AT HANDS REACH. ON ROOM AIR
--- NOTE | 2021-04-29 03:00 | NUR ---
resting, repositions self in bed, on room air, no distress. call light and fluids at bedside
--- NOTE | 2021-04-29 05:12 | NUR ---
Pt on room air, no distress, cooperative with turning and repositoning. Had a soft bm, sitx bath done, Óscar drain patent, drainig moderate amount of brown discharge, no odor. red buttocks and periarea, skin care, barrier cream Decreased redness and induration R buttocks and R labial area. F/C not chronic, patent. Helps with turning and repositioning. Continues to have labile mood, easily reoriented, took meds with milk, took 10-15 mintues, crying, irritable at that time. Reassured. Medicated with Oxycodone and Vistaril with good pain and anxiety relief. Has slept most of this shift. Tolerating fluids and diet well, no emesis, uses call light. Efforts praised, cooperative
--- NOTE | 2021-04-29 06:34 | NUR ---
cOOP WITH TURNING AND REPOSITIONING. PAD CHANGED, DECREASED AMOUNT OF BROWN DRAIANGE FROM HUNTER DRAIN BETWEEN BUTTOCKS NOTED. TOLERATED WELL. MEDICATED WITH COUGH SYRUP PER C/O SORE THROAT AND VISTARIL PER C/O ANXIETY. CALL LIGHT AT HANDS REACH
--- NOTE | 2021-04-29 07:30 | NUR ---
Shift report recieved from RN Nava, pt resting safely w/ call light in reach and eyes closed, RR even and unlabored on RA.
--- NOTE | 2021-04-29 10:00 | NUR ---
Pt resting in bed safely w/ call light in reach. Morning assesment complete and scheduled meds given per provider orders. Pt w/ severe anxiety when plan for the day discussed, PRN Vistaril given per request. Pt denies any further needs at this time.
--- NOTE | 2021-04-29 11:00 | NUR ---
Pt working w/ PT, no needs at this time
--- NOTE | 2021-04-29 11:43 | OR ---
[facility] [address] [place], [place] [address] Signed DATE OF OPERATION: 04/22/2021 SURGEON: Kaden Cerna MD PREOPERATIVE DIAGNOSES: 1. Right persistent perineal cellulitis, probable abscess. 2. Diabetes, recent diabetic ketoacidosis, still with hyperglycemia. 3. Persistent elevated white count and tenderness of perineum. POSTOPERATIVE DIAGNOSES: 1. Right persistent perineal cellulitis, probable abscess. 2. Diabetes, recent diabetic ketoacidosis, still with hyperglycemia. 3. Persistent elevated white count and tenderness of perineum. 4. Right complex perineal abscess with extension to the right labia majora posteriorly and deep ischial rectal abscess. PROCEDURES: 1. Exam under anesthesia. 2. Incision and drainage and debridement of complex perineal and ischial rectal abscesses. 3. Placement of yellow vessel loop seton. 4. Placement of 5.8-inch Óscar knotted pararectal drain. ANESTHESIA: General endotracheal, Kaden Lyons CRNA and local 15 mL of 0.25% Marcaine with epinephrine. DRAINS: 1. 5.8-inch [place] (knotted). 2. Yellow vessel seton loop. INDICATION: This 36-year-old white woman was admitted by Dr. Syed on 04/18/2021 with significant right perineal cellulitis. A CT scan did not show a fluid collection. She was treated with intravenous antibiotics. She concurrently had diabetes out of control, indeed BKA as well as markedly [place] [address]. She has been given various intravenous antibiotics and has persistent white count, though her DKA has been controlled, though she remains hyperglycemic to greater than 329. A 2nd CT scan was performed yesterday, which shows possible worsening of this inflammatory process in the right perirectal and perineal area and possible 2.5 cm fluid collection. Consultation Electronically Signed By: KDAEN CERNA MD 04/29/21 1143 PATIENT NAME: HARRIET HERNANDEZ OPERATIVE REPORT DATE OF : 89 REPORT #: [id number] PHYSICIAN: KADEN CERNA MD PCP: RAMA STOCK MD REPORT IS CONFIDENTIAL AND NOT TO BE RELEASED WITHOUT AUTHORIZATION [facility] [address] [place], [place] [address] Signed was undertaken today on that basis. Clinical examination shows it to have marked tenderness in the right perineal area and high probability of significant abscess. 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 I have recommended urgent exam under anesthesia, incision, drainage and debridement as appropriate. The risks of bleeding, infection, failure of diagnosis, and failure to control the infection have been reviewed in detail with her. She understands and wishes to proceed. FINDINGS: Indeed, there was not only a perineal abscess extending anteriorly to the right posterior labia majora, but also a deep ischial rectal abscess in the pararectal space. Far more than 2.5 mL of purulence was withdrawn. Gram stain and cultures were obtained. Copious irrigation was undertaken. Debridement of some fibrinous somewhat necrotic fatty tissue was undertaken. There was no evidence of necrotizing fasciitis proper. To drain the ischiorectal space, a 5.8-inch [place] drain was tied into a knot at the distal portion to form as a Pezzer and a yellow vessel loop seton was placed in the more superficial portions to allow for drainage. Blood loss was less than 20 mL. Sponge, needle, and instrument counts reported as correct and there were no complications. DESCRIPTION OF PROCEDURE: The patient was brought to the operating room, given a general endotracheal anesthetic. She was placed in a prone мария-knife position. The buttocks were taped apart. An area upon preparation showing an egress of a fibrinous gelatinous core of mucopurulent material was noted. The buttocks were taped apart and the perineum and perianal area prepared with a Betadine solution and draped sterilely. An incision was made at the site of necessitation and opening of the wound showed a fibrinous yanez yellow conglomeration of proteinaceous tenacious fluid as well as copious amounts of purulent material. Fluids obtaine were sent for both for both Gram stain and culture. Further exploration with a hemostat showed it to extend to the ischio rectal space where more purulent material was noted. Additionally, the process extended more superficially anteriorly to the base of the left labia majora, loculations were broken down and purulent material noted from there. A counter incision was made allowing for placement of yellow vessel loop. Bulb irrigation was undertaken in both the superficial and the deep spaces that had the infection. Further irrigation was undertaken as probing with the yankuar suction showed the deep abscess to be a pararectal ischiorectal space problem with considerable amount of fibrinopurulent tenacious exudate, which was debrided with banjo curettes and so on. Once irrigation fluid was clear and there was no evidence of non-debrided material, a Electronically Signed By: KADEN CERNA MD 04/29/21 1143 PATIENT NAME: HARRIET HERNANDEZ OPERATIVE REPORT DATE OF : 89 REPORT #: [id number] PHYSICIAN: KADEN CERNA MD PCP: RAMA STOCK MD REPORT IS CONFIDENTIAL AND NOT TO BE RELEASED WITHOUT AUTHORIZATION [facility] [address] [place], [place] [address] Signed 5.8-inch [place] drain was tied into a bulky knot and placed into the depths of the ischiorectal space. The incision was closed with a single interrupted 0 Vicryl suture so as to close the space and diminish chances of accidental explantation of the drain. Additionally, a 0.25-inch Nu Gauze was packed into the smaller incision inferiorly and anteriorly and additionally into the deep perirectal space to affect hemostasis more fully. Photographs were taken throughout. Plain gauze was applied as well as Magda-Pad. She was returned to a supine position, anticipating extubation in the near future. Blood loss was less than 20 mL. Sponge, needle, and instrument counts were reported as correct x3. Kaden Cerna MD /SVETAL /[id number] cc: MD Dr. Rama Anderson MD Copies: ROHAN MEDINA LOHITH VEERAPPA MD ~ Electronically Signed By: KADEN CERNA MD 04/29/21 1143 PATIENT NAME: HARRIET HERNANDEZ OPERATIVE REPORT DATE OF : 89 REPORT #: [id number] PHYSICIAN: KADEN CERNA MD PCP: RAMA STOCK MD REPORT IS CONFIDENTIAL AND NOT TO BE RELEASED WITHOUT AUTHORIZATION
--- NOTE | 2021-04-29 11:43 | CONS ---
[facility] [address], [place] [address] Signed DATE OF CONSULTATION: 04/22/2021 CONSULTING PHYSICIAN: Kaden Cerna MD REQUESTING PHYSICIAN: Jaxon Johnson MD PROBLEM: Right gluteal cellulitis, possible abscess. HISTORY OF PRESENT ILLNESS: This 36-year-old diabetic woman was admitted to the hospital several days ago on April 18, 2021 having several days of malaise and increasing right perineal and gluteal pain. She was evaluated initially by Dr. Sutton and subsequently Dr. Smith where cellulitic changes were noted including tenderness and erythema of the right gluteal area and a CT scan showing findings of marked inflammation, but without drainable abscess per se. The stranding included the right gluteal subcutaneous fat extending medially to the gluteal cleft. The patient was placed on ceftriaxone antibiotic as well as clindamycin. Blood cultures were obtained and catheter cultures obtained as well. A blood culture showed gram-positive cocci in clusters. Her current antibiotic regimen includes clindamycin and ceftriaxone as well as vancomycin. The patient underwent placement of a PICC line catheter yesterday, April 21 at approximately 8 p.m. and care was assumed today by Dr. Jaxon Johnson. The patient has been variably resistant to examination of the perineum and continued to do so, but did undergo a repeat CT scan of the pelvis yesterday at approximately 9:30 p.m. The finding showed extensive ill-defined fluid and edema in the right gluteal subcutaneous tissue track into the right thigh, bilateral labia majora and into the right ischial anal fossa suggestive of fluid collection measuring up to 2.3 cm. There was presacral and pelvic sidewall edema, which appeared to be increased. It is noted that the patient had a Mercado catheter placed due to the issues of incontinence... but uncertain if retention was a componant as well. My discussion with Dr. Piteo also reveals that she has had poor oral intake for quite some time. Indeed, is noted to have an albumin at admission of 2.3 and now 1.1. She has concurrently been noted to have anemia with a hematocrit highly variable at the time of admission 41.8 down to 37.0, and drifting down to the low 20s. There was some question about lab error most recently, however. Electronically Signed By: KADEN CERNA MD 04/29/21 1143 PATIENT NAME: HARRIET HERNANDEZ CONSULTATION DATE OF : 89 REPORT #: [id number] PHYSICIAN: KADEN CERNA MD PCP: BOZENA STOCK MD REPORT IS CONFIDENTIAL AND NOT TO BE RELEASED WITHOUT AUTHORIZATION [facility] [address], [place] [address] Signed Of special note, her hematocrit today at 5:45 a.m. was 20.5. Her white count has been persistently elevated and this morning is 23.7. Platelet count is 374,000 that has been reasonably persistent though was 689,000 at admission. PAST MEDICAL HISTORY: Quite notable for diabetes mellitus. She came in with diabetic ketoacidosis. That has been managed and essentially resolved. Her glucose this morning was 392, essentially the same as the day of admission and has been as low as 155 on 20 April. SOCIAL HISTORY: The patient has 2 children, the youngest is 6 years old and has a live-in boyfriend. REVIEW OF SYSTEMS: She denies any shortness of breath or chest pain. She has no specific abdominal pain. She does have right perineal and gluteal pain, which is improved with oral medications. PHYSICAL EXAMINATION: GENERAL: This is a pleasant white woman who is anxious and admits as much. VITAL SIGNS: Temperature at 1:30 p.m. today is 99.4, has been as high as 102.7 yesterday. Pulse is 109 earlier 116, blood pressure 112/75, O2 saturation 97% on room air. NECK: Shows no thyromegaly or cervical adenopathy. Trachea is midline. CHEST: Shows normal respiratory excursion without tachypnea. ABDOMEN: Obese, nondistended. Examination in the lateral decubitus position right side down confirms significant induration and erythema of the perianal and perineal area. There is no tenderness or erythema on the left side. There is tenderness, blanching, and diffuse cellulitic changes on the right side. EXTREMITIES: Show no clubbing, cyanosis, or edema. A Mercado catheter is in place. I have reviewed the 2 CT scans that have been obtained including the most recent one last night as well as I have reviewed the previous CT scan at the time of admission. The images reviewed clearly show inflammatory changes in the right gluteal area quite discordant to the left side and although not a distinct fluid collection as might be expected enough soft tissue inflammatory changes that abscess is likely. ASSESSMENT: The patient is at high risk for progressive perineal infection including Landon's gangrene. At this time, I do not see such a finding, though she is at risk for it. She does have induration and has been stalled in her improvement regarding cellulitic changes. She is still quite painful and is tender. I would recommend exam under anesthesia and drainage and debridement as necessary. Discussed with her the risks of bleeding, infection, and need for extensive soft tissue resection should necrotizing Electronically Signed By: KADEN CERNA MD 04/29/21 1143 PATIENT NAME: HARRIET HERNANDEZ CONSULTATION DATE OF : 89 REPORT #: [id number] PHYSICIAN: KADEN CERNA MD PCP: BOZENA STOCK MD REPORT IS CONFIDENTIAL AND NOT TO BE RELEASED WITHOUT AUTHORIZATION [facility] [address], [place] [address] Signed fasciitis be identified (unlikely at this time). I reviewed this with Dr. Johnson as well. As regard to her anemia, she does have heavy menstrual periods and delutional changes in addition to baseline anemia, may account for her low hematocrit. There was some question on accuracy of the lab on one or more occasions. At this time, we will make her n.p.o. and additionally, repeat lab studies including the CBC as well as a lactic acid likely to anticipate exam under anesthesia, incision and drainage, and debridement today. Kaden Cerna MD /MODL /[id number] cc: MD Jaxon Bnun MD Copies: CARO SMITH MD, BRIAN DO ~ Electronically Signed By: KADEN CERNA MD 04/29/21 1143 PATIENT NAME: HARRIET HERNANDEZ CONSULTATION DATE OF : 89 REPORT #: [id number] PHYSICIAN: KADEN CERNA MD PCP: BOZENA STOCK MD REPORT IS CONFIDENTIAL AND NOT TO BE RELEASED WITHOUT AUTHORIZATION
--- NOTE | 2021-04-29 12:00 | NUR ---
REPORT RECEIVED AND PT CARE RESUMED. PT. C/O ABDOMINAL PAIN. ADMIN PERCOCET. PT. ORDERED LUNCH. WILL CONTINUE TO MONITOR.
--- NOTE | 2021-04-29 13:00 | NUR ---
REPORT RECEIVED AND PT. CARE RESUMED. PT. IS ASSISTED WITH SHOWER. MEDS ADMINISTERED AND LEG DRESSING CHANGED. LEFT RESTING WITH CHARGE NURSE IN THE ROOM.
--- NOTE | 2021-04-29 14:45 | NUR ---
PT. ADMIN. ABX. HE DENIES PAIN AT THIS TIME AND REPORTS HE IS TIRED. BOWELTONES HYPERACTIVE THROUGHOUT. ABDOMEN AND DRESSINGS REMAIN UNCHANGED. LEFT RESTING WITH CALL LIGHT IN REACH.
--- NOTE | 2021-04-29 16:01 | NUR ---
PT. ASSISTED BY 2 STAFF TO THE BEDSIDE COMMODE. AMBULATED WITH SBA AND TOLERATED WELL. VOIDED A SMALL AMOUNT AND HAD A LOOSE BM. ASSISTED WITH CLEANING AND LEFT RESTING WITH CALL LIGHT IN REACH.
--- NOTE | 2021-04-29 18:21 | NUR ---
PT. WAS BLADDER SCANNED AFTER VOIDING SMALL AMOUNT AFTER CATH. WAS DC'D. SCAN SHOWS 435ML IN THE BLADDER. PT. AGREED TO TRY AND VOID WITHIN HALF HOUR.
--- NOTE | 2021-04-29 18:36 | NUR ---
PT. ATTEMPTED TO VOID ON BSC. AMBULATED WITH FWW AND SBA. ABLE TO VOID ONLY 25ML.
--- NOTE | 2021-04-29 19:22 | NUR ---
awake, watching tv, no distress no requests, fluids and call light at bedside
--- NOTE | 2021-04-29 20:00 | NUR ---
UP TO BSC, HAD SOFT BM AND CREAMY COLORED DRAINAGE FROM HUNTER DRAIN. SKIN CARE DONE, BARRIER CREAM TO RED BUTTOCKS. SITZ BATH DONE, COOPERATIVE. TOLERATED GETTING UP W FWW AND MINIMUM OF ASSIST. NO VOID.
--- NOTE | 2021-04-29 20:42 | NUR ---
BLADDER SCANNING OVER 750CC. PT AWARE OF STRAIGHT CATHING, DECLINES GETTING UP TO BSC AGAIN.
--- NOTE | 2021-04-29 21:07 | NUR ---
STRAIGHT CATH DONE, 1250CC CLEAR URINE DRAINED. PT VERY ANXIOUS, CRYING, PROCEDURE EXPLAINED, COOPERATIVE. UP TO BSC AT THIS TIME. INC OF SOFT BM. SKIN CARE. SITZ BATH TO BE COMPLETED AGAIN
--- NOTE | 2021-04-29 23:19 | NUR ---
RESTING, NO DISTRESS, ON ROOM AIR, CALL LIGHT AND FLUIDS AT BEDSIDE.
--- NOTE | 2021-04-30 01:00 | NUR ---
0040pt used call light, very anxious. using foul langeage when asked to get up to bsc as she stated that she was feeling bladder pressure. Bladder scanned by charge nurse with approx 370cc in bladder. Declines to use bsc. Continues to encourage. Pt was straight cathed earlier. as per orders straight cath if no void in 6H and over 550cc when bladder scanned. 0052 - pt went to talk to pt and pt had eyes closed, no distress, snoring softly. will reassess
--- NOTE | 2021-04-30 03:31 | NUR ---
PT C/O BLADDER PRESSURE. UP TO BEDPAN, INCREAED IRRITABLITY AND ANGER, NO VOID, NOT RECEPTIVE. BLADDER SCANNER DONE 502CC PER SCANNER VIEW. UP TO BSC. PT NOT RECEPTIVE, INCREAED FOUL WORDS, IRRITABLE BEHAVIOR, CRYING, ' CANT GO, I CANT GO, IM TELLING YOU I FEEL THE PRESSURE BUT I CANT GO, ITS NOT COMING OUT. PINKISH RED DRAINAGE FROM HUNTER DRAIN NOTED AND APPROX 5CC YELLOW URINE IN BSC BOWL. BACK TO BED. STRAIGHT CATH WITH 550CC CLEAR URINE DRAINED. PT CALMER. PERIAREA STILL RED AND EDEMATOUS SOFTER THAN EARLIER. MEDICATED WITH PERCOCET AND VISTARIL PER 4/10 PAIN AND ANXIETY. SNACK OF GRAM CRACKERS GIVEN. HELPED WITH REPOSITONING, REASSURED, SEMI RECEPTIVE AT THIS TIME. CONT TO REINFORCE TOILETING
--- NOTE | 2021-04-30 05:00 | NUR ---
Pt continues to have labile mood, semi receptive to information given. On room air, Was unable to void on he rown, bladder scanner twice and straight cath done twice. drained 850cc and 550cc each time. pt became very irritable, crying and labile mood, declined to use BSC, was placed on bedpan and NSC early this am and become very anxious, crying, reassured w/ little success was medicated with percocet and vistaril with good effects. Óscar drain to R buttocks area patent, draining moderate amount of pink/red thick, no odor drainage. Sitz baTH DONE AFTER EACH BM. HAVING SOFT BMS'. rED OPEN AREA ABOVE BUTTOCKS MOIST, NOT IMPROVING. RED AREAS BETTEN BUTTOCKS AND AROUND TO FROMTAL PERIARREA AND EDEMA TO r VAGINAL FOLD MUCH IMPROVED. TOLERATING LIQUIDS AND DIET WELL. USES 1PA/FWW, MUCH IMPROVED GAIT, CONT TO REINFORCE SAFETY, PRAISE EFFORTS AND ENCOURAGE SELF ADLS' BLADDER SCAN PER ORDERS IF NO VOID.
--- NOTE | 2021-04-30 06:18 | NUR ---
CALMER, COOP WITH VITAL, INCREASED AMOUNT OF PINK/RED DRAINAGE FROM HUNTER DRAIN NOTED. R BUTTOCKS SOFTER FOUNDATION COORDINATOR, RED AREA BETWEEN BUTTOCKS AND SACRAL SORES MOIST, OPEN TO AIR. VAGINA AREA DECREAED EDEMA AND REDNES, R LABIA FOUNDATION COORDINATOR, LESS INDURATION. DENIES NEEDING TO URINATE AT THIS TIME OR FEELING BLADDER PRESSURE. WENT BACK TO SLEEP WHILE DOING VITALS. CALL LIGHT AND FLUIDS AT BEDSIDE
--- NOTE | 2021-04-30 07:30 | NUR ---
went in patients room to do blood sugar and get patient up to the chair. patient got up to the cammode and tried to pee with no luck. she did get up to the chair afterwards for breakfast.
--- NOTE | 2021-04-30 08:20 | NUR ---
REPORT RECEIVED FROM NIGHT RN AND PT. CARE RESUMED. PT. IS ALERT AND ORIENTED. UP IN THE CHAIR FOR BREAKFAST. SHE REPORTS THROAT PAIN HAS IMPROVED. PICC LINE FLUSHES WELL AND RETURNS BLOOD. DISCUSSED MEDS, POC, AMBULATING AND SHOWERING. LEFT RESTING WITH CALL LIGHT IN REACH.
--- NOTE | 2021-04-30 09:22 | NUR ---
PATIENT UP TO COMMODE TO , SELF TRANSFERED TO BED. LEE ANN/ANAL AREA CLEANED, MODERATE PINK-CLOUDY DRAINAGE NOTED.
--- NOTE | 2021-04-30 10:47 | NUR ---
DISCUSSED WITH PT. ADMIN. PAIN AND ANXIETY MEDS PRIOR TO ATTEMPTING TO VOID. PT. REFUSED. SHE IS STATES "NICOLE ALREADY TRIED 2 FUCKING TIMES TO PEE. I CANT! I NEED A CATHETER. EXPLAINED IMPORTANCE OF VOIDING ON HER OWN AND PT. TOLD WE COULD WAIT A FEW MINUTES TO TRY AGAIN.
--- NOTE | 2021-04-30 11:13 | NUR ---
UPDATED ON BLADDER SCAN OF 830ML AFTER PT. WAS UNSUCCESSFUL WITH VOIDING AGAIN. STRAIGHT CATH ATTEMPTED AND WAS NOT SUCCESSFUL. ANOTHER RN WITH TRY.
--- NOTE | 2021-04-30 13:50 | NUR ---
PT. AMBULATED WITH SBA TO BS AND TOLERATED WELL. UNABLE TO VOID AND HAD A LARGE LOOSE BM. ASSISTED WITH CLEANING WITH WARM WATER AND WOUND CLEANSER. LEFT RESTING WITH P.T. IN THE ROOM.
--- NOTE | 2021-04-30 16:19 | NUR ---
ASSISTED PT TO STAND FROM EDGE OF BED WITH FWW. PT PIVOTED AND SAT DOWN ON BSC. PT HAD A SMALL BM ALONG WITH SOME DRAINAGE AND A SMALL AMOUNT OF URINE. PT USED FWW TO PIVOT AND SIT BACK DOWN ON EDGE OF BED. THIS PATENT ENGINEER PREPPED SHOWER AND BROUGHT SHOWER CHAIR TO THRESHOLD OF SHOWER PER PT REQUEST. PT STOOD AND WALKED WITH FWW TO SHOWER CHAIR, PIVOTED AND SAT DOWN. ROLLED PT INTO BR AND ASSISTED PT WITH SHOWER. PT WAS ABLE TO WASH PART OF THIER OWN BODY BUT NEEDED HELP WITH BACK, HEAD/NECK, CALVES/FEET WELL PERICARE. CHANGED LINENS. DRIED PT OFF AND ROLLED PT BACK TO THRESHOLD. PT STOOD THEMSELF UP AND USED FWW TO AMBULATE BACK TO BED. PT WAS ABLE TO PUT THEMSELF BACK IN BED COMFORTABLY. BROUGHT WARM BLANKET, HOT COFFEE, FRESH SOCKS AND HOT PACKS FOR PT'S LEG. CALL LIGHT WITHIN REACH, NO FURTHER NEED. BR TIDIED AND CLEAN.
--- NOTE | 2021-04-30 18:30 | NUR ---
PT. IS UP TO THE COMMODE TO VOID. VOIDED 175ML. BLADDER SCAN SHOWS 1030ML IN THE BLADDER. STRAIGHT CATH PERFORMED AND 1200ML REMOVED. PT. LEFT RESTING WITH CALL LIGHT IN REACH.
--- NOTE | 2021-04-30 18:54 | NUR ---
PT VOIDED 345. 1200 DETECTED ON BLADDER SCANNER AND TAKEN OUT.
--- NOTE | 2021-04-30 19:45 | NUR ---
CALL LIGHT ANSWERED. THIS PROCESS DESIGN ENGINEER AND WET TRIMMER CADY HELP PATIENT UP WITH WALKER TO USE THE BEDSIDE COMMODE. PATIENT DID HAVE A SMALL SOFT BOWEL MOVEMENT BUT DID NOT URINATE. PATIENT GOT UP BY HERSELF AND STATED DID NOT NEED MY ASSISTANCE GOING BACK TO BED. BUT PATIENT NEEDED HELP TO WIPE AND THIS PROCESS DESIGN ENGINEER DID. NO OTHER NEEDS AT THIS TIME. CALL LIGHT WITHIN REACH.
--- NOTE | 2021-04-30 21:49 | NUR ---
sitting up in bed, c/o 4/10 throat and nelly area pain, medicated, c/o sore throat after coughing, medicated with Robitussin AC. took meds with milk and applesauce, CBG 284, received 9 unit Humolog ss Insulin. on room air. [place] drain R buttocks patent, draining pink/red drainage, decreaesd induration over r buttocks and r laba, red between buttocks, Sitz bath done, barrier cream. cooperative. R PICC line patent
--- NOTE | 2021-04-30 21:59 | NUR ---
Pt on 4LNC, finger probe/tele CPOX in place. desatted to 78%, placed back on BIPAP, R 17, procedure explained, cooperative. repositioned in bed, attends changed. moist productive cough present
--- NOTE | 2021-04-30 23:10 | NUR ---
RESTING, ON ROOM AIR, NO DISTRESS, CALL LIGHT AT BEDSIDE.
--- NOTE | 2021-05-01 00:28 | NUR ---
Resting, on room air, no distress, call light at bedside
--- NOTE | 2021-05-01 01:21 | NUR ---
Eyes closed, no distress, on room air, call light and fludis at bedside
--- NOTE | 2021-05-01 01:50 | NUR ---
ASSISTED PRIMARY RN SABRINA DO STRAIGHT CATH TO PATIENT. CRACKERS AND SUGAR FREE JELLO PROVIDED PER PATIENT'S REQUEST.
--- NOTE | 2021-05-01 01:51 | NUR ---
Pt turned light on, up to BSC, had smd sized soft bm and voided approx 300cc. back to bed, with minimum of assist FWW. R buttocks area drain patent. bladder scanned and it showed 971cc+. Straight cath done and drained 1025cc more. procedure explained. coop. Reminded of Kegel exercises, again semireceptive. Medicated with Vistaril 25mg po per increaed anxiety. snacks given on requests
--- NOTE | 2021-05-01 06:38 | NUR ---
rESTING, EYS CLOSED, NO DISTRESS, CALL LIGHT AND FLAUIDS AT BEDSIDE
--- NOTE | 2021-05-01 07:39 | NUR ---
Patient resting in bed, eyes closed, respirations even and and non labored. Patient has no distress noted. Personal supplies and call light within reach.
--- NOTE | 2021-05-01 08:26 | NUR ---
PATIENT IS SITTING UP TO EAT BREAKFAST.
--- NOTE | 2021-05-01 10:31 | NUR ---
Call light is in reach and patient is in bed.
--- NOTE | 2021-05-01 10:55 | NUR ---
Patient voided 150ml in bedside commode. Bladder scanned pt; 950ml.
--- NOTE | 2021-05-01 11:49 | NUR ---
Straight cath done using sterile technique. 1050ML of clear yellow urine. Patient tolerated well.
--- NOTE | 2021-05-01 11:52 | NUR ---
CALL PLACED TO DMITRY AT [facility], NO BED AVAILABILITY AT THIS TIME. JOHN UPDATE STAFF AND
--- NOTE | 2021-05-01 14:23 | NUR ---
Patient assisted to bedside commode, small soft stool noted. Assisted patient cleaning, warm water ran over rectal area, dried post. Pen carina intact and draining pink/brown drainage.
--- NOTE | 2021-05-01 14:37 | NUR ---
Patient is in bed with call light in reach.
--- NOTE | 2021-05-01 14:42 | NUR ---
INTO SPEAK WITH PATIENT. PATIENT LAYING IN BED AND STATES "IT'S BEEN A DAY." PATIENT STATES SHE IS DISAPPOINTED THAT SHE HAS NOT DONE WELL WITH PT SHE DID YESTERDAY. I REASSURED HER THAT SHE WAS DOING WELL. WE DISCUSSED THAT UP'S AND DOWN'S IN HER PROGRESS ARE TO BE EXPECTED, BUT SHE IS STILL IMPROVING. DISCUSSED PLACEMENT [facility] CONTINUES TO DECLINE DUE TO BED AVAILABILITY. PATIENT DECLINES [facility], BUT AGREES TO [facility]. WILL SEND REFERRAL AND CONTINUE TO CHECK IN WITH PATIENT DURING HER STAY.
--- NOTE | 2021-05-01 15:04 | NUR ---
CHART FAXED TO [facility] AT THE [facility] IN [place]. DR. VIVAR AND DR. SMITH UPDATED.
--- NOTE | 2021-05-01 15:28 | NUR ---
Patient requesting quiet time to take a short nap.
--- NOTE | 2021-05-01 16:42 | NUR ---
Patient up to bedside commode, voided 200ml urine with small soft stool. Patient cleansed with warm water at this time over rectal area, dried with cloth. Patient assisted back to bed. Vistaril 25mg po and percocet 7.5/325mg po admin for reports of 7/10 incisional pain.
--- NOTE | 2021-05-01 18:44 | NUR ---
BELLY DUMP DRIVER stood by to steady graduate container while RN drained 1000 ml of urine into it from the patient. Patient is comfortable again. Call light is in reach.
--- NOTE | 2021-05-01 19:36 | NUR ---
REPORT RECEIVED FROM RANDAL CERVANTES. pt RESTING IN BED AWAKE, DROWSY. DENIES PAIN. DENIES ADDITIONAL NEEDS. CALL LIGHT IN REACH.
--- NOTE | 2021-05-01 21:32 | NUR ---
pt AWAKE RESTING IN BED, ASSESSMENT COMPLETE. 1+ EDEMA BLE. pt DENIES PAIN AT THIS TIME. DENIES NAUSEA. DENIES TOILETING NEEDS AT THIS TIME. PICC LINE FLUSHED WNL, BRISK BLOOD RETURN, HEP LOCKED. VSS. SNACK PROVIDED WITH PO MEDICATIONS. CALL LIGHT IN REACH. pt NOW ON PHONE WITH . NO ADDITONAL REQUESTS.
--- NOTE | 2021-05-01 22:00 | NUR ---
PATIENT ASSISTED TO THE BSC A 1PA W/FWW. PATIENT WAS ABLE TO VOID AND HAD A BM. PATIENT IS BACK IN BED RESTING. PATIENT USED STOOL TO ASSIST WITH VOIDING. PATIENT DENIES ANY FURTHER NEEDS. CALL LIGHT IN REACH.
--- NOTE | 2021-05-01 23:28 | NUR ---
CALL LIGHT ANSWERED. ASSISTED WITH PHONE CORD. NO ADDITIONAL REQUESTS. LIGHTS OFF IN ROOM. CALL LIGHT IN REACH.
--- NOTE | 2021-05-02 03:41 | NUR ---
pt SLEEPING, AWAKENS TO VOICE. pt CRYING, UPSET THAT THIS RN WOKE UP pt. pt EDUCATED ON BLADDER SCAN ORDERS. SBA WITH FWW TO BSC FOR VOID, pt UNABLE TO VOID, SMALL SOFT BM IN COMMODE. SITZ BATH COMPLETE. BROWN DRAINGE NOTED ON CHUX, CHUX CHANGED. BLADDER SCAN >705 MLS. STRAIGHT CATH FOR 770 MLS. pt ASSESSMENT COMPLETE. EDEMETOUS, RED IN LEE ANN AREA. pt PAINFUL WITH CATHETERIZATION, POSITIONING. FACILITY ADMINISTRATOR IRAIS ASSIST. STERILE TECHNIQUE MAINTAINED. pt RESTING IN BED, REFUSES PRN ANXIETY MEDICATIONS. VSS COMPLETE PER pt REQUEST TO REST. pt DENIES PAIN. REFUSES TO RATE PAIN. DENIES ADDITIONAL NEEDS. CALL LIGHT IN REACH.
--- NOTE | 2021-05-02 06:41 | NUR ---
pt RESTING IN BED. NO DISTRESS NOTED. LIGHTS OFF IN ROOM.
--- NOTE | 2021-05-02 07:33 | NUR ---
Patient sleeping, eyes closed, respirations even and non labored. Patient has no distress. Personal supplies and call light within reach.
--- NOTE | 2021-05-02 08:26 | NUR ---
PT AWAKE IN ROOM AND IS SBA TO THE CHAIR WITH FWW. PT AHS MILK AND IS WAITING ON BREAKFAST. CALL LIGHT WITHIN REACH. NO FURTHER NEEDS AT THIS TIME.
--- NOTE | 2021-05-02 09:20 | NUR ---
Admin vistaril 25mg po and one tab percocet 7.5/325mg po for reports of anxiety and pain.
--- NOTE | 2021-05-02 10:00 | NUR ---
Spoke with pt. She would like to go the [facility] at the [facility] in [place]. Discussed with pt as she is on [place]HP they will not pay for placement out of state. She has declined the 3 SNFS in our 40 mile radius. I asked if she would consider [facility] or [facility] and she declines as she does not want to be that distance from family. We then discussed OP therapy and HH. I also discussed with OT. They feel HH would be the most beneficial as they could work with pt for needs in her home. Will update Dr. Syed.
--- NOTE | 2021-05-02 10:32 | NUR ---
Patient up to bedside commode to void. Bladder scan done post void; 470ml. Encouraged patient to get up to void ever two hours, pt receptive to this plan.
--- NOTE | 2021-05-02 15:19 | NUR ---
NOtified by Dr. Syed he spoke with PT and pt will be dischargable in two days. She will need to cont. sitz bath. Discussed Sitz baths are made to be used on a toilet. He asks I discuss this with pts nurse. Called and spoke with Aracely and she states pt did not like the sitz bath as she has been using the BSC and the navarrete did not fit in. I asked if they could transition pt to using the toilet as she does not have large home and she will be using her toilet in her home. She will begin working with pt to walk to the toilet and to use the sitz bath in the toilet.
--- NOTE | 2021-05-02 15:22 | NUR ---
Requested rx and note for walker from Dr. Syed as notified by PT, pt will need on dc.
--- NOTE | 2021-05-02 15:32 | NUR ---
Admin Oxycodone 5mg po and vistaril 25mg po for anxiety and rectal pain. Discussed with patient that we will start taking her to the bathroom rather than the commode. Patient reports she does not want to shower today and people keep bothering her to do things. Patient encouraged to continue participating with her daily cares so she can get stronger and go home, pt appears a bit discouraged at this time. Encouraged patient to call staff if she has needs. Personal supplies and call light within reach.
--- NOTE | 2021-05-02 16:01 | NUR ---
Called and spoke with [facility] and [facility]. [facility] is at least 2 weeks out. [facility] could see the beginning of next week if chart is faxed today. FAxed face sheet, H&P Progress notes, PT notes to [facility] with update pt will dc in 2 days. Faxed H&P, RX, and note showing pt in need of a walker to [facility].
--- NOTE | 2021-05-02 16:19 | NUR ---
Patient up to shower and is soaking her rectal wounds. Commode removed from room as staff will encourage patient to use toilet.
--- NOTE | 2021-05-02 16:35 | NUR ---
Patient encouraged to get up to the bathroom to try to void. Patient upset by my suggestion to get up to void, pt tearful and states she is anxious. This RN assisted patient back to bed. Bladder scan done post void, 615ml per scanner. Patient voided scant amount in toilet. Patient receptive to strait cath per provider order for bladder scan over 500ml.
--- NOTE | 2021-05-02 17:04 | NUR ---
Straight cath done using sterile technique, 775ml clear yellow urine out. Patient tolerated well.
--- NOTE | 2021-05-02 17:17 | NUR ---
PATIENT UP TO CHAIR FOR DINNER FROM BED, SBA FWW. CALL LIGHT IN REACH. NO FURHTER NEEDS AT THIS TIME.
--- NOTE | 2021-05-02 19:20 | NUR ---
pt RESTING IN BED WITH EYES CLOSED. BREATHING EQUAL AND UNLABORED. CALL LIGHT IN REACH.
--- NOTE | 2021-05-02 22:03 | NUR ---
pt AWAKENS TO VOICE. IRRITABLE UPON AWAKENING. VSS. CBG 77. SNACKS PROVIDED TO pt. SBA WITH FWW TO CHAIR. ASSESSMENT COMPLETE. 1+ EDEMA BLE, EDEMA IMPROVED FROM PREVIOUS SHIFT. pt RATES PAIN 5/10 IN PERIRECTAL AREA. PRN PAIN AND ANXIETY MEDICAITONS ADMINISTERED. PICC LINE FLUSHED WNL. BRISK BLOOD RETURN. HEP LOCKED WNL. pt DENIES TOILETING NEEDS. CALL LIGHT IN REACH. pt WATCHING MOVIE AT THIS TIME.
--- NOTE | 2021-05-02 22:15 | NUR ---
PATIENT ASSISTED TO THE RESTROOM A SBA W/FWW. PATIENT WAS ABLE TO VOID. PATIENT ALSO HAD SMALL BM. PATIENT IS BACK IN BED RESTING. PATIENT DENIES ANY NEEDS. CALL LIGHT IN REACH.
--- NOTE | 2021-05-02 23:13 | NUR ---
pt BLADDER SCANNED FOR 610 MLS. RESTING IN BED, EMOTIONAL. ENCOURAGED TO GET OUT OF BED TO ATTEMPT ADDITIONAL VOID. pt REFUSES AT THIS TIME "IT TOOK A LOT OUT OF ME LAST TIME, IT WAS JUST A LITTLE BIT AGO". STRAIGHT CATH FOR 650 MLS YELLOW URINE. STERILE TECHNIQUE MAINTAINED. LIGHTS OFF IN ROOM. CALL LIGHT IN REACH.
--- NOTE | 2021-05-03 02:21 | NUR ---
pt RESTING IN BED WITH EYES CLOSED. NO DISTRESS NOTED. LIGHTS OFF IN ROOM.
--- NOTE | 2021-05-03 03:01 | NUR ---
pt RESTING IN BED ON LEFT SIDE. BREATHING UNLABORED. LIGHTS OFF IN ROOM.
--- NOTE | 2021-05-03 06:54 | NUR ---
pt SLEEPING, AWAKENS TO VOICE. VSS. SBA WITH FWW TO RESTROOM. SMALL BM, SPRAY BOTTLE TO LEE ANN RECTAL AREA, pt REFUSES SITZ BATH. pt UNABLE TO VOID AFTER SITTING ON TOILET FOR SEVERAL MINUTES. BACK IN BED, BLADDER SCAN >740 MLS. STRAIGHT CATH DRAINING. ASSESSMENT COMPLETE. RN IN ROOM WHILE CATH DRAINS.
--- NOTE | 2021-05-03 07:52 | NUR ---
REPORT RECIEVED. PT IN BED. DOES NOT WANT TO BE DISTURBED. CALL LIGHT IN REACH,.
--- NOTE | 2021-05-03 08:15 | NUR ---
PT AWAKE IN BED AND IS AGREEABLE TO GET TO THE CHAIR WHEN BREAKFAST ARRIVES. CALL LIGHT IS IN REACH. NO FURTHER NEEDS AT THIS TIME.
--- NOTE | 2021-05-03 09:00 | NUR ---
PT SELF ADMISNTERED INSULIN. TOLERATED WELL. WILL CONT TI EDUCATE.
--- NOTE | 2021-05-03 09:19 | NUR ---
SPOKE WITH [facility]. THEY STATED THEY HAVE THE RX, PAPERWORK FOR A WALKER FOR THIS PATIENT. THEY ONLY NEEDED HEIGHT/WEIGHT WHICH I PROVIDED. SHE STATES THEY ARE NOT GOING TO BE ABLE TO DELIVER THIS TODAY THE ROAD IS CLOSED DUE TO WEATHER. WE HAVE NO LOCAL DME SUPPLY, WILL UPDATE STAFF AND IF PATIENT DOES DISCHARGE FOR FAMILY TO BORROW ONE AT [facility] UNTIL IT CAN BE DELIVERED. SPOKE WITH CHARGE NURSE, DIONNE.
--- NOTE | 2021-05-03 09:39 | NUR ---
ASSESSMENT COMPLETED. PT REPORTING /10 AFTER PAIN MEDICATION. PT SITTING UP IN CHAIR FOR BREAKFAST. ASSISTED PT TO BATHROOM TO ATTEMPT TO VOID. PT WAS UNSUCCESSFUL. PT NOW BACK IN CHAIR. BASE OF LUNGS ARE DIM. TRACE EDEMA IN LE. PT IN LESENT MOOD TODAY. REFUSED CULTURELLE TAB. PT DID HAVE SMALL LOOSE BM. RINSED WITH WARM WATER STREAM. PT TOLERATED WELL. CALL LIGHT IN REACH.
--- NOTE | 2021-05-03 13:19 | NUR ---
PT ATE 50% OF LUNCH. PT SELF ADMISNTERED INSULIN. WILL CONTINUE TO EDUCATE. PT ATTEMPTED TO VOID UNSUCCESSFULLY. BLADDER SCAN SHOWED 804 MLS. STRAIGHT CATH COMPLETED.
--- NOTE | 2021-05-03 14:20 | NUR ---
straight cathed for 750mls out. pt working with physical therapy now.
--- NOTE | 2021-05-03 17:21 | NUR ---
PT UP TO CHAIR FOR DINNER. DR SMITH IN TO ROUND. PLAN OF CARE DISCUSSED INCLUDING POSSIBLE URINARY KISER BEING REPLACED. PT BECAME VISIBLY UPSET AND THOGUTH THIS WOULD SET BACK HER PROGRESS. EDUCATION AND COMFORT PROVIDED. NOW IN ROOM NOW. EATING DINNER NOW. CALL LIGHT IN REACH.
--- NOTE | 2021-05-03 18:50 | NUR ---
PT UNABLE TO VOID. BLADDER SCAN FOR 933. STRAIGHT CATH COMPLETED. 950 MLS CLEAR YELLOW URINE RETURNED. PT WITH SYDNEY ANXUIETY. VISTARIL ADMISNTERED. EDUCATION PROVIDED ON [place] PROVIDED.
--- NOTE | 2021-05-03 19:30 | NUR ---
REPORT RECEIVED FROM RANDAL YOO. pt HAS CALL LIGHT IN REACH. DENIES NEEDS AT THIS TIME. PO FLUIDS IN REACH. WATCHING MOVIE ON PHONE.
--- NOTE | 2021-05-03 19:50 | NUR ---
CALL LIGHT ANSWERED. SBA UP TO THE BATHROOM AND BACK TO BED. PATIENT HAD A WATERY GREENISH STOOL. PATIENT C/O THE NEW MEDICATION MADE HER STOMACH UPSET. PRIMARY RN AAYUSH NOTIFIED. PATIENT IS SITTING BY THE SIDE OF THE BED.
--- NOTE | 2021-05-03 19:57 | NUR ---
PHONE CALL TO TO VERIFY STRAIGHT CATH ORDERS ORDER D/C'D. UPDATED ON pt STRAIGHT CATH AT 1800 FOR ALMOST 1L URINE. MD UPDATED THAT pt C/O CRAMPING AFTER BETHENACOL MEDICATION. NEW ORDERS REPEATED BACK TO MD TO VERIFY.
--- NOTE | 2021-05-03 21:48 | NUR ---
pt RESTING IN BED, VSS. pt RATES PAIN 3/10 "PAIN IN MY BUTT". DENIES NEEDS FOR PRN MEDICATIONS AT THIS TIME. SCHEDULED MEDICATIONS ADMINISTERED. ASSESSMENT COMPLETE. LIGHT BROWN DRAINAGE NOTED FROM PERIRECTAL AREA, DRAINS. SBA WITH FWW TO CHAIR. SF ASIFO, SNACKS PROVIDED. CALL LIGHT IN REACH.
--- NOTE | 2021-05-03 22:12 | NUR ---
CALL LIGHT ANSWERED. SBA TO RESTROOM TO ATTEMPT TO USE RESTROOM BEFORE LYING DOWN. INSTRUCTED TO USE CALL LIGHT WHEN FINISHED. pt VERBALIZES UNDERSTANDING.
--- NOTE | 2021-05-03 23:27 | NUR ---
pt RESTING IN BED, AWAKENS TO VOICE. BLADDER SCAN 395 MLS AT THIS TIME. EYES CLOSED. LIGHTS OFF IN ROOM. NO REQUESTS AT THIS TIME.
--- NOTE | 2021-05-04 02:45 | NUR ---
pt RESTING IN BED WITH LIGHTS OFF IN ROOM. NO DISTRESS NOTED.
--- NOTE | 2021-05-04 06:39 | NUR ---
pt SLEEPING, AWAKENS TO VOICE. SBA TO RESTROOM. UNMEASURED VOID, MISSED HAT AND SMALL BM. LEE ANN CARE WITH BATH WIPES AND SPRAY BOTTLE TO PERIRECTAL AREA. BACK IN BED. ASSESSMENT COMPLETE. VSS. pt HAS NO C/O PAIN. BLADDER SCAN FOR >970 MLS. STRAIGHT CATHETER PLACED WITH STERILE TECHNIQUE MAINTAINED. pt RESTING IN BED. CATHETETER DRAINING. CALL LIGHT IN REACH.
--- NOTE | 2021-05-04 06:59 | NUR ---
STRAIGHT CATH D/C'D. 1100 OUT OF CATHETER. pt RESTING IN BED WITH LIGHTS OFF IN ROOM. CALL LIGHT IN REACH. NO REQUESTS.
--- NOTE | 2021-05-04 08:30 | NUR ---
RECIEVED REPORT FROM THUY. PATIENT UP TO CHAIR FOR BREAKFAST. ALERT AND ANXIOUS. ATE 100% OF BREAKFAST. REQUESTED OXYCODONE FOR 4/10 PAIN AND VISTARIL FOR ANXIETY. SHE STATED SHE WAS NOT FEELING WELL BUT SHE WAS UNABLE TO DESCRIBE HER SYMPTOMS. VSS. DENIED BLADDER FULLNESS. REQUESTED TO LAY DOWN. PATIENT WAS COOPERATIVE. BROWN DRAINAGE FROM HUNTER. LEE ANN AREA REMAINS EDEMATOUS AND REDDENED. PT CONTINUES TO HAVE AN OPEN AREA UPPER AREA OF CLUTEAL FOLD BELOW COCCYX. EMOTIONAL ECOURAGEMENT PROVIED. DISCUSSED PLAN FOR THE DAY. PATIENT ADMINISTERED HER OWN INSULIN
--- NOTE | 2021-05-04 10:12 | NUR ---
ROUNDING ON PT. SHE REFUSES TO GET UP TO THE COMMODE AT THIS TIME. DENIES PAIN. LEFT RESTING WITH CALL LIGHT IN REACH.
--- NOTE | 2021-05-04 10:40 | NUR ---
In to speak with pt, Dr. Syed in room discussing dc with pt. PT would like to work with pt today and tomorrow am before dc. Will order HH PT/OT/SN/aid for this pt. I sent her chart to [facility] last week as [facility] does not take OHP. Called and spoke with Susi from [facility] and they will admit this pt on Saturday. Still awaiting walker that was ordered on Saturday. It was not delivered yesterday due to inclemental weather.
[2021-05-04] MEDS ORDERED: OXYCODONE HCL5 MG PO (13:03)
[2021-05-04] MEDS ORDERED: HYDROXYZINE PAM25 MG PO (13:04)
[2021-05-04] MEDS ORDERED: BASAGLAR K100 UNIT/1 SUB-Q (13:08)
[2021-05-04] MEDS ORDERED: NOVOLOG FL100 UNIT/1 SUB-Q (13:12)
[2021-05-04] MEDS ORDERED: BLOOD GLUCOSE1 EAC3 MISC (13:13)
[2021-05-04] MEDS ORDERED: BLOOD GLUOCSE1 EACH MISC (13:14)
[2021-05-04] MEDS ORDERED: ACCU-CHEK1 EAC1 MISC (13:15)
--- NOTE | 2021-05-04 13:30 | NUR ---
Discussed MD order for rob cath placement due to retention. Explained to patient options for discharge- straight cath every 6 hrs vs rob catheter. Patient stated she did not feel she could manage self catherization at home, and she was agreeable to a rob catheter placement. Rob catheter was inserted with out difficulty. Patient tolerated well. Patient has been up in the chair for meals and working toward independence with. Tolderating meals. Provided Water for tea per patient request. Patient is currenlty resting in bed
--- NOTE | 2021-05-04 17:45 | NUR ---
ROUNDING ON PT. SHE IS FOUND IN THE CHAIR, TEARFUL AND YELLING "I SHOULD NEVER HAVE AGREED TO THIS DAMN CATHETER! I CANT SIT DOWN, IT HURTS TOO BAD." PT. AMBULATED BACK TO BED WITH FWW AND SBA. ONCE IN BED ASSISTED WITH REPOSITIONING CATH. PT. CALMED DOWN AND REPORTS BEING COMFORTABLE. INSULIN ADMIN. LEFT RESTING WITH CALL LIGHT IN REACH.
--- NOTE | 2021-05-04 19:10 | NUR ---
SHIFT REPORT RECEIVED FROM DAYSHIFT RN EDSON AND YOSHI AT BEDSIDE. pt AWAKE AND RESTING IN BED, VERBALIZED FRUSTRATION REGARDING NOT BEING ABLE TO GET AHOLD OF AT HOME. THERAPEUTIC COMMUNICATION PROVIDED, pt QUICKLY APPEARS MORE CALM. DENIES NEED FOR PRN ANXIETY MEDICATION, EVENING TEA PROVIDED. NO FURTHER NEEDS, CALL LIGHT IN REACH.
--- NOTE | 2021-05-04 22:45 | NUR ---
ASSESSMENT COMPLETE, SCHEDULED MEDS GIVEN (SEE EMAR) ALONG WITH PRN ANXIETY AND PRN PAIN MEDICATION FOR 4/10 PAIN. pt A/OX4, CALLS APPROPRIATELY. INCONT. SMALL AMOUNT BM, pt UP SBA WITH FWW TO BATHROOM. LEE ANN CARE DONE AND BUTTOCKS CLEANED VIA WARM WATER IN BOTTLE. HUNTER DRAIN REMAINS PATENT AND DRAINING, OUTPUT LIGHT BROWN IN COLOR. pt TOLERATED WELL AND IS BACK IN BED, VSS. SNACK PROVIDED, CALL LIGHT IN REACH.
--- NOTE | 2021-05-05 00:01 | NUR ---
pt AWAKE AND IN BATHROOM, SANDY MAYNARD REMAINS IN ROOM WITH pt. pt MADE NPO AT THIS TIME FOR PLANNED TO-FOLLOW SCOPE.
--- NOTE | 2021-05-05 00:30 | NUR ---
pt RESTING IN BED, EYES CLOSED. RR EVEN AND UNLABORED. NO DISTRESS NOTED, CALL LIGHT IN REACH.
--- NOTE | 2021-05-05 02:01 | NUR ---
PT CALLED FOR ASSISTANCE TO RESTROOM, SHE IS NOW BACK IN BED AND DENIES FURTHER NEEDS. CALL LIGHT IS CLOSE.
--- NOTE | 2021-05-05 02:04 | NUR ---
pt AWAKE AND RESTING IN BED, DENEIS NEEDS OR CONCERNS. CALL LIGHT IN REACH.
--- NOTE | 2021-05-05 04:15 | NUR ---
pt RESTING IN BED WITH EYES CLOSED, RR EVEN AND UNLABORED. NO DISTRESS NOTED. CALL LIGHT IN REACH.
--- NOTE | 2021-05-05 05:43 | NUR ---
assessment complete, no acute changes. nelly care done along with cath care and barrier cream applied to buttocks, reddness noted, blanchable. jayashree remains patent. vss, i&o's complete. no further needs, call light in reach.
--- NOTE | 2021-05-05 08:58 | NUR ---
RFEPORT RECEVED FROM [place]. PT IS UP IN CHAIR EATING BREAKFAST. ALERT AND ORIENTED VERBALIZES ANXIETY DUE TO DISCHRAGE TODAY. STATES HER HUSNBAND WOULD NOT BE ABLE TO COME UNTIL AFTER 3 PM TO PICK HER UP. PATIENT GAVE HER OWN INSULIN INJECTION. ATTEMPTED TO DRAW UP INSULIN BUT STATES SHE HAS CATARACT AND CANNOT SEE THE LINES. SHE STATES HER WOULD BE ABLE TO HELP HER WITH THIS TASK. RATED PAIN 4/10 WILL PLAN TO CONTINUE TO PROVIDE DIABETIC EDUCATION
--- NOTE | 2021-05-05 09:40 | NUR ---
Spoke with Cheli and update, walker will be delivered today. Gabriela made two attempts this week and could not deliver due to road closure. I spoke with He today and he is in town and will bring to the hospital. Discussed [facility] will see her on Saturday for admission for PT/OT/SN/Aid. Rn is faxing her prescriptions to [facility]. She denies other needs. She is aware of how to use sitz bath and inject insulin. Denies other needs. Spouse will pick her up around 3 pm.
--- NOTE | 2021-05-05 10:00 | NUR ---
PATIENT REQUESTED TO EMPTY KISER PRIOR TO WORKING WITH THERAPY. PATIENT WAS AGREEABLE AND RECEPTIVE TO KISER CARE EDUCATION AND EMPTIYING. PROVIED EDUCATION VIA DEMONSTRATION AND TEACH BACK FOR THE KISER LEG BAG AND HOW TO EMPTY THE KISER CATHETER AT HOME. PATIENT APPEARED EAGER AND READY TO LEARN HOW TO CARE FOR HER CATHETER AT HOME
--- NOTE | 2021-05-05 10:15 | NUR ---
PT SMILING AND HAPPILY TALKING TO THIS RN ONCOLOGY ABOUT THIER PLANS TONIGHT AFTER POTENTIAL D/C TONIGHT. CALL LIGHT WITHIN REACH NO FURTHER NEEDS AT THIS TIME.
--- NOTE | 2021-05-05 14:10 | NUR ---
PT AGITATED AND ON PHONE WITH . CALL LIGHT WITHIN REACH, NO FURTHER NEEDS AT THIS TIME.
--- NOTE | 2021-05-05 15:51 | NUR ---
ALL DISCHARGE INSTRUCTIONS REVIEWED WITH PATIENT AND PARTNER AND QUESTIONS ANSWERED. EDUCATION PROVIDED ON DIABETES MANAGMENT, INSULIN ADMIN., KISER CARE, AND LEE ANN CARE PT. DEMONSTRATED UNDERSTANDING. PICC LINE REMOVED WITH CATH INTACT. PRESSURE HELD AND DRESSED WITH STERILE GAUZE AND OPSITE. PT. EDUCATED ON CARE. NO SIGNS OF BLEEDING. PT. LEFT WITH ALL BELONGINGS VIA WHEELCHAIR WITH HEAD RESIDENT.
== END 2021-05-05 15:36 | disposition home or self-care (01) | DRG 853 ==
LOC: ED 00:46 → CCU 00:47 → MS 03:48 → CCU 03:48 → MS 04-21 11:30 → CCU 04-22 17:56 → MS 04-23 15:17
PROVIDERS: Surgery; ADMIT Internal Medicine; ATTEND Internal Medicine
PROC: 02HV33Z Insertion of Infusion Device into Superior Vena Cava, Percutaneous Approach (ICD-10-PCS; 2021-04-21)
PROC: 0JBB0ZZ Excision of Perineum Subcutaneous Tissue and Fascia, Open Approach (ICD-10-PCS; principal; 2021-04-22 16:16)
DX: A41.9 Sepsis, unspecified organism (principal); E11.10 Type 2 diabetes mellitus with ketoacidosis without coma; L02.215 Cutaneous abscess of perineum; L03.317 Cellulitis of buttock; E87.1 Hypo-osmolality and hyponatremia; B37.0 Candidal stomatitis; Z20.822 Contact with and (suspected) exposure to COVID-19; K61.39 Other ischiorectal abscess; R33.8 Other retention of urine; F41.9 Anxiety disorder, unspecified; I10 Essential (primary) hypertension; G89.29 Other chronic pain; F39 Unspecified mood [affective] disorder; D50.0 Iron deficiency anemia secondary to blood loss (chronic); M54.59 Other low back pain; Z88.8 Allergy status to other drugs, medicaments and biological substances; Z79.84 Long term (current) use of oral hypoglycemic drugs; Z79.899 Other long term (current) drug therapy
CPT/HCPCS: 00902; 36430; 36569; 51702; 71045; 72193; 74177; 80048; 80053; 80076; 80202; 81001; 82010; 82247; 82248; 82800; 82803; 83036; 83540; 83605; 83615; 83690; 83735; 84443; 84703; 85025; 85045; 86850; 86880; 86900; 86901; 86922; 87040; 87070; 87075; 87077; 87088; 87186; 87205; 93005; 93010; 97110; 97116; 97163; 97167; 97530; 97533; 97535; 99285-25; A9270; C1751; C9113; C9803; J0330; J0696; J1100; J1450; J1650; J1790; J1815; J1885; J2060; J2250; J2270; J2405; J2543; J2704; J2765; J3010; J3370; J3480; J7030; J7040; J7042; J7060; J7121; P9016; P9047; Q0177; Q9967; U0003

== ENCOUNTER 2021-05-07 14:08 | Emergency (ER) | payer OTHER ==
[~2021-05-07] VITALS: Ht 162.6 cm; Wt 76.2 kg
[~2021-05-07 14:08] MED LIST changes: +ACCU-CHEK1 EAC1 MISC; +BASAGLAR K100 UNIT/1 SUB-Q; +BENZONATATE100 MG PO; +BLOOD GLUCOSE1 EAC3 MISC; +BLOOD GLUOCSE1 EACH MISC; +GLUCOTROL XL5 MG PO; +HYDROXYZINE PAM25 MG PO; +KETOROLAC TROMET5 M1 OPTH; +LOSARTAN POTAS100 MG PO; +NOVOLOG FL100 UNIT/1 SUB-Q; +OFLOXACIN5 M1 OP; +OXYCODONE HCL5 MG PO; +PREDNISOLONE ACE5 ML OPTH; +PREDNISONE20 MG PO
--- OUTSIDE RECORDS SUMMARY | 2021-05-07 14:10 | XMS ---
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 Care History Medical/Surgical 02/22/2020 [facility] Recommendation: - PLEASE REVIEW PDMP ON THE [place] - USE EXTREME CAUTION IN GIVING NARCOTICS. - Avoid Discharge Narcotic prescriptions if at all possible. Physician discretion. [facility]ER LEFT A MESSAGE FOR A RETURN CALL. 12/28/2019 [facility]CUSSED URGENT NEED FOR DENTAL FOLLOW UP - PATIENT APT WAS MOVED UP TO Saturday12/30/2019 @ 9:45AM. - [facility] CALLED AND LEFT PATIENT A MESSAGE. - IF PATIENT HAS AN EMERGENCY DENTAL CONCERN - EMERGENCY DENTAL CONTACT NUMBER IS [phone]. E.D. VISIT COUNT (12 MO.) 3 [facility]. TOTAL 3 NOTE: Visits indicate total known visits. ED/UCC VISIT TRACKING (12 MO.) 05/07/2021 14:09 [facility] [place] TYPE: Emergency COMPLAINT: - LOSS OF BOWEL CONTROL 09/11/2020 08:[address] [facility] [place] TYPE: Emergency COMPLAINT: - TOOTH PAIN DIAGNOSES: - Personal history of nicotine dependence - Type 2 diabetes mellitus without complications - Other specified disorders of teeth and supporting structures - Essential (primary) hypertension - Allergy status to other drugs, medicaments and biological substances - Other group home (current) drug therapy 09/11/2020 05:[address] [facility] [place] TYPE: Emergency COMPLAINT: - LEFT TOOTH PAIN DIAGNOSES: - Essential (primary) hypertension - Other specified disorders of teeth and supporting structures - Type 2 diabetes mellitus without complications - Dental caries, unspecified - Allergy status to other drugs, medicaments and biological substances - Personal history of nicotine dependence - Other group home (current) drug therapy INPATIENT VISIT TRACKING (12 MO.) 04/18/2021 03:48 [facility] [place] TYPE: Medical Surgical COMPLAINT: - SEPSIS,DKA [email or web address]
== END 2021-05-07 21:17 | disposition home or self-care (01) ==
LOC: ED 14:08
DX: R19.7 Diarrhea, unspecified (principal); I10 Essential (primary) hypertension; E11.9 Type 2 diabetes mellitus without complications; Z88.8 Allergy status to other drugs, medicaments and biological substances; Z79.899 Other long term (current) drug therapy; Z79.4 Long term (current) use of insulin
CPT/HCPCS: 80053; 85025; 99284

== ENCOUNTER 2021-05-22 18:19 | Emergency (ER) | payer OTHER ==
[~2021-05-22] VITALS: Ht 162.6 cm; Wt 76.2 kg
--- OUTSIDE RECORDS SUMMARY | 2021-05-22 18:22 | XMS ---
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 Care History Medical/Surgical 02/22/2020 [facility] Care Recommendation: - PLEASE REVIEW PDMP ON THE [place] - USE EXTREME CAUTION IN GIVING NARCOTICS. - Avoid Discharge Narcotic prescriptions if at all possible. Physician discretion. 02/22/2020 [facility] - [facility] CALLED PATIENT- NO ANSWER LEFT A MESSAGE FOR A RETURN CALL. 12/28/2019 [facility] - [facility] CONTACTED [facility] [place]- DISCUSSED URGENT NEED FOR DENTAL FOLLOW UP - PATIENT APT WAS MOVED UP TO Saturday12/30/2019 @ 9:45AM. - [facility] CALLED AND LEFT PATIENT A MESSAGE. - IF PATIENT HAS AN EMERGENCY DENTAL CONCERN - EMERGENCY DENTAL CONTACT NUMBER IS [phone]. E.D. VISIT COUNT (12 MO.) 4 [facility]. TOTAL 4 NOTE: Visits indicate total known visits. ED/C VISIT TRACKING (12 MO.) 05/22/2021 18:[address] [facility] [address] [facility] [place] TYPE: Emergency COMPLAINT: - EXTREMITY PAIN 05/07/2021 14:09 [facility] [place] [facility] [place] TYPE: Emergency COMPLAINT: - LOSS OF BOWEL CONTROL DIAGNOSES: - Type 2 diabetes mellitus without complications - Allergy status to other drugs, medicaments and biological substances - Diarrhea, unspecified - FDC (current) use of insulin - Essential (primary) hypertension - Other manager terminal (current) drug therapy 09/11/2020 08:27 [facility] [place] [facility] [place] TYPE: Emergency COMPLAINT: - TOOTH PAIN DIAGNOSES: - Personal history of nicotine dependence - Type 2 diabetes mellitus without complications - Other specified disorders of teeth and supporting structures - Essential (primary) hypertension - Allergy status to other drugs, medicaments and biological substances - Other fci (current) drug therapy 09/11/2020 05:41 [facility] [place] [facility] [place] TYPE: Emergency COMPLAINT: - LEFT TOOTH PAIN DIAGNOSES: - Essential (primary) hypertension - Other specified disorders of teeth and supporting structures - Type 2 diabetes mellitus without complications - Dental caries, unspecified - Allergy status to other drugs, medicaments and biological substances - Personal history of nicotine dependence - Other manager terminal (current) drug therapy INPATIENT VISIT TRACKING (12 MO.) 04/18/2021 03:48 [facility] [place] TYPE: Medical Surgical COMPLAINT: - SEPSIS,DKA DIAGNOSES: - OTHER LOW BACK PAIN - Type 2 diabetes mellitus with ketoacidosis without coma - Other manager terminal (current) drug therapy - Hypo-osmolality and hyponatremia - Cellulitis of buttock - Other chronic pain - Essential (primary) hypertension - Hypo-osmolality and hyponatremia - Iron deficiency anemia secondary to blood loss (chronic) - Allergy status to other drugs, medicaments and biological substances - Sepsis, unspecified organism - Other ischiorectal abscess - Candidal stomatitis - Anxiety disorder, unspecified - Anxiety disorder, unspecified - Essential (primary) hypertension - Other retention of urine - manager terminal (current) use of oral hypoglycemic drugs - Unspecified mood [affective] disorder - Type 2 diabetes mellitus with ketoacidosis without coma - OTHER LOW BACK PAIN - Other manager terminal (current) drug therapy - Cutaneous abscess of perineum - Other chronic pain - Other ischiorectal abscess - Candidal stomatitis - Cutaneous abscess of perineum - Other retention of urine - Iron deficiency anemia secondary to blood loss (chronic) - Unspecified mood [affective] disorder - Allergy status to other drugs, medicaments and biological substances - Cellulitis of buttock - FDC (current) use of oral hypoglycemic drugs [email or web address]
--- NOTE | 2021-05-25 11:16 | CONS ---
[facility] [address] [place], [place] [address] Signed DATE OF CONSULTATION: 05/22/2021 REQUESTING PHYSICIAN: Dr. Weinstein and Dr. Ugarte. HISTORY OF PRESENT ILLNESS: This 36-year-old white woman was recently discharged on May 04, 2021. Having been hospitalized between April 18, 2021, and May 05, 2021, for presentation of right gluteal cellulitis, ultimately found to have deep ischiorectal abscess. I was consulted and performed ischiorectal abscess drainage. Her initial presentation was that of diabetic ketoacidosis related to uncontrolled type 2 diabetes with a hemoglobin A1c of 13%. The patient has other underlying problems including chronic urinary retention, currently with Mercado catheter in place, and gait instability due to musculoskeletal deconditioning and menorrhagia for which outpatient evaluation is anticipated. She was discharged to home with Óscar drain in a knotted configuration, secured into the right ischiorectal space as well as placement of yellow vessel loop seton. Her cultures from the blood had grown Staph hominis and coagulase-negative Staph, which were considered contaminants. She was due to follow up with me in the coming week. She has been under home health visits that had been organized by the hospitalist and I was called by Demi Calderon, visiting home health nurse a few days ago, noting that the patient had developed a coccygeal decubitus. There is no such finding at the time of her hospitalization previously that was clinically evident anyway. Local wound care was advised anticipating seeing the patient in followup in the near future as planned. I was called today by Demi Calderon RN, and images conveyed to the medical record showing what appeared to be tissue in a coccygeal decubitus with the Pollock drain well-positioned as previously. I had recommended the patient to see me in the office at approximately 4:00 p.m., however, she advised me that the patient was unable to walk and was unstable and it sounded as though she was too ill really to be seen in office setting and urged the patient to go to the emergency room. She was evaluated by Dr. Weinstein, found to have no evidence of hyperglycemia or sepsis nor signs of hypotension. The patient noted that she does have dizziness and other similar symptoms on a daily basis already. She says she is functioning well at home overall. She is caring for her two children. She has a , who works a graveyard shift, but she has been managing reasonably well. Evaluation by Dr. Weinstein in the emergency room did confirm a significant sacrococcygeal decubitus for which consultation is requested. REVIEW OF SYSTEMS: She denies any fever or chills. She does not have too much pain in the area in Electronically Signed By: KADEN CERNA MD 05/25/21 1116 PATIENT NAME: HARRIET HERNANDEZ CONSULTATION DATE OF : 89 REPORT #: [id number] PHYSICIAN: KADEN CERNA MD PCP: BOZENA STOCK MD REPORT IS CONFIDENTIAL AND NOT TO BE RELEASED WITHOUT AUTHORIZATION [facility] [address] [place], [place] [address] Signed question. She has had drainage from the Óscar drain in the perineum as would be expected. PHYSICAL EXAMINATION: GENERAL: Alert and oriented white woman. VITAL SIGNS: Blood pressure systolic is 123. NECK: Trachea is midline. CHEST: Clear. HEART: Regular. In the prone position with , RN in attendance. Examination of the coccygeal area was undertaken. A Óscar drain is emanating inferior to this as placed in the right ischiorectal space. Clearly, there is a coccygeal decubitus with necrotic tissue in the base of the wound. There is no surrounding cellulitis. There is undermining circumferentially in aggregate size of the defect was approximately 6 cm. ASSESSMENT: She has a coccygeal decubitus that developed in part related to her prolonged hospitalization, also likely continued pressure on the site at home. This wound will not heal without debridement. To begin with, it may well require more elaborate methods of treatment to include wound VAC or even advancement flap ultimately. It is notable the patient is not bedridden and she assures me that she is able to stand her left and right sides when in bed and to be ambulatory most of the time otherwise. I have recommended debridement at this time as well as local wound care anticipating her evaluation in the wound care clinic and also in my office in the future. She agrees to it. Understands the risks of bleeding, infection, and so on. MD TRES العراقي/LEONARD /[id number] cc: Demi Calderon RN [facility] Copies: Electronically Signed By: KADEN CERNA MD 05/25/21 1116 PATIENT NAME: HARRIET HERNANDEZ CONSULTATION DATE OF : 89 REPORT #: [id number] PHYSICIAN: KADEN CERNA MD PCP: BOZENA STOCK MD REPORT IS CONFIDENTIAL AND NOT TO BE RELEASED WITHOUT AUTHORIZATION [facility] [address] [place], [place] [address] Signed ~ Electronically Signed By: KADEN CERNA MD 05/25/21 1116 PATIENT NAME: HARRIET HERNANDEZ CONSULTATION DATE OF : 89 REPORT #: [id number] PHYSICIAN: KADEN CERNA MD PCP: BOZENA STOCK MD REPORT IS CONFIDENTIAL AND NOT TO BE RELEASED WITHOUT AUTHORIZATION
--- NOTE | 2021-05-25 11:16 | OR ---
[facility] [address] [place], [place] [address] Signed DATE OF OPERATION: 05/22/2021 SURGEON: Kaden Cerna MD TIME: 8:30 p.m. PREOPERATIVE DIAGNOSES: 1. Sacrococcygeal decubitus with necrotic tissue at base of wound. 2. Recent incision and drainage and placement of Happy drain into right ischiorectal space. POSTOPERATIVE DIAGNOSES: 1. Sacrococcygeal decubitus with necrotic tissue at base of wound. 2. Recent incision and drainage and placement of Óscar drain into right ischiorectal space. PROCEDURE: Debridement of sacrococcygeal decubitus including subcutaneous tissue and deep fascia with ultimately irrigation wound packing. DESCRIPTION OF PROCEDURE: In the prone position in the ER, the buttock area was prepared with Betadine solution and draped sterilely. Sharp dissection was undertaken initially with a 10 blade, debriding soft spongy necrotic fatty tissue obviously completely necrotic. Dissection was carried laterally showing undermining of the wound itself. Additional dissection was undertaken with sharp scissors allowing for debridement of necrotic fat and revealing underlying granulation tissue in the region of the coccyx and low sacrum. Irrigation was undertaken with saline solution. Once all reasonable debridement had been completed, the wound was packed with and the patient allowed to proceed to discharge soon. It is planned that the patient will change her gauze dressing three times a day with assistance of her . She should soak her bottom and sacrum as previously recommended. I will seek a referral to the wound care clinic for which additional treatment might be initiated to include a wound VAC device. Electronically Signed By: KADEN CERNA MD 05/25/21 1116 PATIENT NAME: HARRIET HERNANDEZ OPERATIVE REPORT DATE OF : 89 REPORT #: [id number] PHYSICIAN: KADEN CERNA MD PCP: BOZENA STOCK MD REPORT IS CONFIDENTIAL AND NOT TO BE RELEASED WITHOUT AUTHORIZATION [facility] [address] [place], [place] [address] Signed Kaden Cerna MD JM/MODL /[id number] cc: MD Demi Bunn, RN Gracie Ugarte, MD Byron Gibson, MD Delonte Weinstein MD Copies: CARO SMITH MD, KELLY DEAN MD POWELL, WILLIAM S MD ~ Electronically Signed By: KADEN CERNA MD 05/25/21 1116 PATIENT NAME: HARRIET HERNANDEZ OPERATIVE REPORT DATE OF : 89 REPORT #: [id number] PHYSICIAN: KADEN CERNA MD PCP: BOZENA STOCK MD REPORT IS CONFIDENTIAL AND NOT TO BE RELEASED WITHOUT AUTHORIZATION
== END 2021-05-22 21:05 | disposition home or self-care (01) ==
LOC: ED 18:19
DX: L89.159 Pressure ulcer of sacral region, unspecified stage (principal); I10 Essential (primary) hypertension; E11.9 Type 2 diabetes mellitus without complications; Z88.0 Allergy status to penicillin; Z79.4 Long term (current) use of insulin; Z79.899 Other long term (current) drug therapy
CPT/HCPCS: 99283

== ENCOUNTER 2021-06-06 15:32 | Observation (INO) | payer OTHER ==
[~2021-06-06] VITALS: Ht 162.6 cm; Wt 68.9 kg
--- OUTSIDE RECORDS SUMMARY | 2021-06-06 15:34 | XMS ---
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 Care History Medical/Surgical 05/25/2021 [facility] Care Recommendation: - PLEASE REVIEW PDMP ON THE KATIE - USE EXTREME CAUTION IN GIVING NARCOTICS. - Avoid Discharge Narcotic prescriptions if at all possible. Physician discretion. 12/28/2019 [facility] - [facility] CON[facility]- DISCUSSED URGENT NEED FOR DENTAL FOLLOW UP - PATIENT APT WAS MOVED UP TO Saturday12/30/2019 @ 9:45AM. - CHW CALLED AND LEFT PATIENT A MESSAGE. - IF PATIENT HAS AN EMERGENCY DENTAL CONCERN - EMERGENCY DENTAL CONTACT NUMBER IS [phone]. 12/21/2019 [facility] - PATIENT HAS AN APT WITH A DENTAL PROVIDER -[facility] 01/05/2020 @ 1: 00PM. E.D. VISIT COUNT (12 MO.) 5 [facility] H. TOTAL 5 NOTE: Visits indicate total known visits. ED/UCC VISIT TRACKING (12 MO.) 06/06/2021 15:32 [facility] [place] [facility] [place] TYPE: Emergency COMPLAINT: - MULTIPLE COMPLAINTS 05/22/2021 18:19 [facility] [place] [facility] [place] TYPE: Emergency COMPLAINT: - WOUND CHECK DIAGNOSES: - Pressure ulcer of sacral region, unspecified stage - assisted (current) use of insulin - Allergy status to penicillin - Type 2 diabetes mellitus without complications - Other intermediate accountant (current) drug therapy - Essential (primary) hypertension 05/07/2021 14:09 [facility] [place] [facility] [place] TYPE: Emergency COMPLAINT: - LOSS OF BOWEL CONTROL DIAGNOSES: - Type 2 diabetes mellitus without complications - Allergy status to other drugs, medicaments and biological substances - Diarrhea, unspecified - assisted (current) use of insulin - Essential (primary) hypertension - Other intermediate accountant (current) drug therapy 09/11/2020 08:27 [facility] [place] [facility] [place] TYPE: Emergency COMPLAINT: - TOOTH PAIN DIAGNOSES: - Personal history of nicotine dependence - Type 2 diabetes mellitus without complications - Other specified disorders of teeth and supporting structures - Essential (primary) hypertension - Allergy status to other drugs, medicaments and biological substances - Other half-way (current) drug therapy 09/11/2020 05:41 [facility] [place] TYPE: Emergency COMPLAINT: - LEFT TOOTH PAIN DIAGNOSES: - Essential (primary) hypertension - Other specified disorders of teeth and supporting structures - Type 2 diabetes mellitus without complications - Dental caries, unspecified - Allergy status to other drugs, medicaments and biological substances - Personal history of nicotine dependence - Other intermediate accountant (current) drug therapy INPATIENT VISIT TRACKING (12 MO.) 04/18/2021 03:48 [facility] [place] TYPE: Medical Surgical COMPLAINT: - SEPSIS,DKA DIAGNOSES: - OTHER LOW BACK PAIN - Type 2 diabetes mellitus with ketoacidosis without coma - Other half-way (current) drug therapy - Hypo-osmolality and hyponatremia [...] hypertension - Other retention of urine - intermediate accountant (current) use of oral hypoglycemic drugs - Unspecified mood [affective] disorder - Type 2 diabetes mellitus with ketoacidosis without coma - OTHER LOW BACK PAIN - Other half-way (current) drug therapy - Cutaneous abscess of perineum - Other chronic pain - Other ischiorectal abscess - Candidal stomatitis - Cutaneous abscess of perineum - Other retention of urine - Iron deficiency anemia secondary to blood loss (chronic) - Unspecified mood [affective] disorder - Allergy status to other drugs, medicaments and biological substances - Cellulitis of buttock - intermediate accountant (current) use of oral hypoglycemic drugs [email or web address]
--- NOTE | 2021-06-06 21:55 | NUR ---
WAS ASKED TO PLACE MIDLINE BY SURGEON PRECIADO AND ED STAFF PT HAS POOR ACCESS AND IS GOING TO NEED IV ABX. DISCUSSED WITH PT THE BENEFITS AND RISKS OF RECEIVING A MIDLINE. PT STATES UNDERSTANDING OF THE PROCEDURE AND GIVES CONSENT TO HAVING A MIDLINE PLACED. PT'S RIGHT ARM EXAMINED. THE BRACHIAL AND BASILIC VEINS WERE IDENTIFIED ALONG WITH THE BRACHIAL ARTERY. THE BRACHIAL VEIN WAS CHOSEN IT WAS LARGER IN SIZE THAN THE BASILIC. THE BRACHIAL VEIN WAS LARGE ENOUGH TO FIT A 6 FR ACCORDING TO SITE RITE 8 ULTRASOUND. PT WAS EMOTIONAL DURING THE PROCEDURE AND WOULD WINCE WITH THE ULTRASOUND PROBE TOUCHING HER ARM. ASKED THE PT IF IT WAS HURTING HER. THE PT REPORTS, "I JUST DON'T LIKE THE THOUGHT OF ANY OF THIS". DISCUSSED WITH PT ABOUT COMPLETING THE PROCEDURE AND THE PT GAVE CONSENT AGAIN TO CONTINUE. THE MIDLINE RETURNED DARK RED, NONPULSITILE BLOOD. BLOOD WAS DRAWN EASILY FROM THE MIDLINE AND FLUSHED. PT REPORTS NO PAIN WITH THE DRAWING OF BLOOD OR FLUSHING BUT DOES NOT LIKE THE SENSATION OF IT BEING IN HER ARM. ASKED PT IF SHE WOULD LIKE A PILLOW OR SOMETHING TO REST HER ARM ON. PT DENIES NEEDING THIS. PT HAS NO FURTHER REQUESTS AT THIS TIME.
--- NOTE | 2021-06-07 00:37 | NUR ---
PT ARRIVED TO UNIT, TRANSFERRED VIA TRANSFER SHEET FROM ER STRETCHER TO CCU BED, PT REFUSES TO ASSIST, VERY WITHDRAWN, ASSESSMENT COMPLETED, DURING HISTORY PT NOT WANTING TO ANSWER QUESTIONS IN DETAIL, VITAL SIGNS OBTAINED, LABS AND MEDICAITONS REVIEWED, IN CCU FOR HOUSE CONVIENCE, WILL TREAT MED/SURG PT
--- NOTE | 2021-06-07 07:52 | NUR ---
PATIENT REFUSED GLUCOSE CHECK. AWAKE IN BED, S/O AT BEDSIDE. CALL LIGHT IN REACH.
--- NOTE | 2021-06-07 08:15 | NUR ---
PATIENT ALLOWED ACCU CHECK, REFUSED AT FIRST. PATIENT HAS NO APPETITE AND REFUSED FOOD. SEVERAL OPTIONS OFFERED. DRESSING IS NOT INTACT ON HER COCCYX. DISCUSSED WITH , HE WILL BE HERE TO SEE HER LATER. REQUEST DRESSING BE CHANGED NOW WITH VALERIA.
--- NOTE | 2021-06-07 08:20 | NUR ---
PATIENT ALLOWED ACCU CHECK, REFUSED AT FIRST. PATIENT HAS NO APPETITE AND REFUSED FOOD. SEVERAL OPTIONS OFFERED. DRESSING IS NO INTACT ON HER OCCYX. DISCUSSED WITH , HE WILL BE HERE TO SEE HER LATER. REQUEST DRESSING BE CHANGED NOW WITH VALERIA.
--- NOTE | 2021-06-07 09:00 | NUR ---
PATIENT HAS 3 MAJOR WOUNDS IN HER LEE ANN RECTAL AREA. HIGHEST UP WAS PACKED WITH 4X4 GAUZE, LARGE AMOUNT OF GREEN/YELLOW DRAINAGE. GAUZE REMOVED. AREA CLEANED WITH WOUND YARDAGE ESTIMATOR, PACKED WITH PACKING GAUZE SOAKED IN DAKINS PER ORDER. NEXT TO THIS IS A PINHOLE WOULD THAT WAS ALSO PACKED WITH PACKING STRIP. NEXT WOUND DOWN IS RIGHT ABOVE THE ANUS, LARGE HUNTER DRAIN NOTED. GAUZE PACKED LOOSELY IN THIS AREA AFTER CLEANING. SKIN IN LEE ANN AREA IS MOSTLY RED WITH AREA OF CONCERN FOR BREAKDOWN IN BETWEEN VAGINA AND ANUS. AREA CLEANED AND BARRIER SPRAY APPLIED. 4X4 PAD PLACED IN BETWEEN GLUTES TO ABSORB MOISTURE. KISER AREA DONE, LABIAS ARE SWOLLEN AND RED. LARGE AMOUNT OF DISCHARGE NOTED. AREA CLEANED AND BARRIER CREAM APPLIED. NEW STAT LOCKED PLACED DUE TO OLD ONE NOT BEING ATTACHED ANYMORE. ALSO NOTED IS LARGE RED AREA, POSSIBLY ABCESS ON RIGHT UPPER THIGH/GLUTE AREA. PATIENT TOLERATED WOUND CARE WELL. DENIES ANY PAIN. REFUSED MESH UNDERWEAR TO HOLD ABD IN PLACE FOR DRAINAGE. PATIENT TURNING FROM SIDE TO SIDE, MARSHALL PLACED UNDER HER TO ABSORB DRAINAGE. PATIENT REFUSING TO EAT OR EVEN DRINK PROTEIN DRINKS. DISCUSSED NEED FOR PROTIEN FOR WOUND HEALING. PATIENT HAS UNDERSTANDING BUT LACKS SERIOUS MOTIVATION.
--- NOTE | 2021-06-07 09:17 | NUR ---
Spoke with Cheli. She states home living conditions remain the same. She lives with, Mason, her spouse and 2 children. She has been on services for wound care and rob catheter care. I recently made a referral to the CHW, at the requests the Susi from [facility]. Her concern was pt required multiple visits for many needs and was above what they could provide. It was also not in their scope of wound care and catheter care. I spoke with CHW and she is also stating pt has many requests and needs. She was concerned yesterday as pt called the ambulance for a ride to for wound check. She states she had told her she needed to call [facility] free transport and pt was aware of this. She then told the EMS crew the CHW and told her to call them. I spoke with [facility] and ALEXI Escalante, also was able to speak with them and complete a 405T to auth transport to the hospital. This prevented pt was receiv- ing a $1200 bill from EMS for nonemergent tranport. Education has been provided to this pt. Pt denies new needs at this time. When demo infor review it was noted her emergency contact is incorrect and I will again notify admitting to change to her current spouse. Pt plans on dc to home when cleared medically. Will see Dr. Ferguson today for consult.
--- NOTE | 2021-06-07 10:00 | NUR ---
PATIENT RESTING ON LEFT SIDE, HEAD COVERED. PATIENT REQUESTING TO SLEEP. DENIES PAIN OR CONCERNS. IV FLUIDS AND ABX INFUSING. CALL LIGHT IN REACH.
--- NOTE | 2021-06-07 10:30 | NUR ---
PATIENT HAD 3 LIQUID STOOLS. ASSISTANCE BY RACIEL DELGADO FOR LEE ANN CARE. PATIENT REPORTS HAVING C. DIF WITH LAST ADMISSION. WILL DISCUSS WITH .
--- NOTE | 2021-06-07 11:24 | NUR ---
PT DROWSY, NOT INTERESTED IN VISIT AT THIS TIME. WILL CHECK BACK LATER
--- NOTE | 2021-06-07 11:48 | NUR ---
PATIENT REFUSING LUNCH OR ANY SUPPLEMENTS. REMINDED PATIENT AGAIN OF NEED FOR NUTRITION. PATIENT VERBALIZED UNDERSTANDING BUT CONTINUES TO REFUSE.
--- NOTE | 2021-06-07 13:28 | NUR ---
DR. NGUYEN IN TO SEE PATIENT. PATIENT IS ALERT, DENIES ANY QUESTIONS. MD DISCUSSED POSSIBLE NEED TO TRANSFER PATIENT AND PATIENT AGREES. MD ATTEMPT TO UPDATE BUT PHONE NOT WORKING. PATIENT REPORTS HIS PHONE MIGHT BE OFF. PATIENT STATES "HE DOESN'T NEED TO TALK TO HIM. I'LL TELL HIM." IMAGES PUSHED TO LEGACY PER MD REQUEST.
--- NOTE | 2021-06-07 17:00 | NUR ---
PATIENT AGREED TO HAVE DINNER. CALLED DOWN FOR SPECIAL DINER FOR PATIENT. PATIENT'S AT BEDSIDE.
--- NOTE | 2021-06-07 19:45 | NUR ---
PATIENT REPORT RECIEVED FROM RANDAL SAEED. PATIENT RESTING IN BED. BREATHING IS EQUAL AND UNLABORED. LR RUNNING AT 100 MLS/HR. CALL LIGHT WITHIN REACH NO FUTHER NEEDS.
--- NOTE | 2021-06-07 20:00 | NUR ---
PATIENT ASSESSMENT COMPLETE. LR RUNNING AT 100 MLS/HR. PATIENT IS ALERT AND ORIENTED X4. LUNG SOUNDS ARE CLEAR THROUGHOUT. RR AND OXYGEN SATURATIONS WNL. HEART RATE TACHY. PATIENT ON ROOM AIR. DENIES FEELING SHORTNESS OF BREATH OR PAIN. URINE OUTPUT IS CLEAR AND YELLOW. PATIENT HAD A BM. BOWEL TONES ACTIVE. STOOL LOOSE AND LIQUID. CMST INTACT. PATIENT COMPLAINS OF N&T IN LOWER EXTERMITIES. IV SITE PATENT. SEE NOTE FOR WOUND CARE. NO QUESTIONS. CALL LIGHT WITHIN REACH NO FUTHER NEEDS.
--- NOTE | 2021-06-07 21:51 | NUR ---
WOUND CARE COMPLETE. WOUNDS ARE IN LEE ANN RECTAL AREA. TOP WOUND PACKED WITH GAUZE SOAKED IN DAKINS YELLOW DRAINAGE. CLEANED WITH WOUND CLEANSER AND 4X4 GAUZE PADS. PATIENT HAS A PIN HOLE WOUND THAT CONNECTS CLEANED WITH WOUND CLEANSER AND PACKED WITH GAUZE SOAKED IN DAKINS. WOUND ABOVE ANUS. LOOSELY PACKED AROUND HUNTER DRAIN. DRAINAGE GREENISH/YELLOW IN COLOR. CLEANED WITH WOUND CLEANSER. SKIN IS RED IN LEE ANN AREA. GENERALIZED EDEMA THROUGHOUT AREA. PATIENT HAS BREAKDOWN THROUGHOUT. BARRIER CREAM AT BEDSIDE APPLIED AFTER KISER CARE COMPLETE. LINENS CHANGED. CALL LIGHT WITHIN REACH NO FUTHER NEEDS.
--- NOTE | 2021-06-08 | NUR ---
PATIENT ASLEEP. BREATHING EQUAL AND UNLABORED. LR RUNNING AT 100 MLS/HR. NO QUESTIONS AT THIS TIME. CALL LIGHT WITHIN REACH NO FUTHER NEEDS.
--- NOTE | 2021-06-08 01:38 | NUR ---
PATIENT HAD BM LARGE LOOSE STOOL. DRESSING SATURATED. DRESSINGS REAPPLIED TO LEE ANN RECTAL AREA. WOUNDS HAD YELLOW/GREEN TINGED DRAINAGE. UPPER WOUND DRESSED PACKED WITH DAKINS SOAKED GAUZE. PIN HOLE WOUND DRESSED WITH DAKINS SOAKED GAUZE. LOOSE 4X4 DRESSING APPLIED ABOVE HUNTER DRAIN. CLEANED WITH WOUND CLEANSER. LINENS CHANGED. CALL LIGHT WITHIN REACH NO FUTHER NEEDS.
--- NOTE | 2021-06-08 01:44 | NUR ---
[facility] CALLED WHO REPORTS THAT THEY DO NOT HAVE BED SPACE AVAILABLE AT THIS TIME AND WILL CALL BACK WITH ANY UPDATES.
--- NOTE | 2021-06-08 02:00 | NUR ---
PATIENT ASSESSMENT COMPLETE. PATIENT IS AWAKE. DENIES ANY PAIN OR SHORTNESS OF BREATH. PATIENT LUNG SOUNDS ARE CLEAR THROUGHOUT. RR AND OXYGEN SATURATIONS ARE WNL. HEART RATE IS TACHY. AFEBRILE. URINE OUTPUT IS YELLOW AND CLOUDY. BM ARE LOOSE AND LIQUID. STOOL SAMPLE OBTAINED AND SENT TO LAB. CMST INTACT. LR RUNNING AT 100 MLS/HR. NO QUESTIONS AT THIS TIME CALL LIGHT WITHIN REACH NO FUTHER NEEDS.
--- NOTE | 2021-06-08 02:07 | NUR ---
CALL LIGHT ANSWERED. PATIENT SAYING "I AM GOING TO THROW UP I FEEL NASEAUATED." PRN ZOFRAN GIVEN. COLD WASH CLOTH GIVEN AND LIGHTS OFF. PATIENT REPOSITIONED IN BED. CALL LIGHT WITHIN REACH NO FUTHER NEEDS.
--- NOTE | 2021-06-08 03:30 | NUR ---
PATIENT REQUESTING CRACKERS AND JELLO. PATIENT FEELS LESS NASEUATED. NO QUESTIONS AT THIS TIME. CALL LIGHT WITHIN REACH NO FUTHER NEEDS.
--- NOTE | 2021-06-08 05:26 | NUR ---
PATIENT VITAL SIGNS DOCUMENTED. PATIENT STATES "I AM FEELING MUCH BETTER" DENIES FEELING NASUEATED. BREATHING EQUAL AND UNLABORED. DENIES ANY PAIN. NO QUESTIONS CALL LIGHT WITHIN REACH NO FUTHER NEEDS.
--- NOTE | 2021-06-08 05:49 | CONS ---
[facility] [address] [place], [place] [address] Signed DATE OF CONSULTATION: 06/07/2021 CHIEF COMPLAINT: Persistent perirectal abscess. HISTORY OF PRESENT ILLNESS: Cheli is a 36-year-old diabetic female, apparently with noncompliant issues. She underwent incision and drainage of a significant perirectal abscess in March [address] Bowden. A [place] drain had been left. Apparently, she came back to the ER and had some bedside wound debridement. Then, she was following along with our wound care nurses. When she came, it was felt the wound had worsened and was more extensive than before and so she had been sent over to the emergency room. CT scan showed worsening of the perirectal abscess. It has extended up around the coccyx, if not osteomyelitis, as well as inferiorly down the gluteal area and onto the proximal thigh. Of course, there are fluid collections with bubbles of gas. Óscar remains in place. She was admitted by Dr. Roy yesterday. He was quite busy and unable to get to her surgically. They have been using full strength Dakin's solution soaked gauze for the wound. Dr. Roy consulted me as he is now leaving town. Dr. Bowden continues to be out of town. PAST MEDICAL HISTORY: Hypertension, diabetes, chronic pain, sinusitis, diarrhea, dental caries, urinary retention, deconditioning with decreased ambulation, and lumbago. PAST SURGICAL HISTORY: Includes C-sections x2, Mercado catheter, incision and drainage of abscesses x2 with Dr. Bowden. SOCIAL HISTORY: Dr. Rama Stock is her primary care provider. She prefers the [facility]. Mason is her at [phone]. FAMILY HISTORY: None. REVIEW OF SYSTEMS: None. ALLERGIES: Lisinopril and metformin. MEDICATIONS: Oxycodone 5 mg, hydroxyzine, insulin, and alogliptin. Electronically Signed By: AUSTYN NGUYEN MD 06/08/21 0549 PATIENT NAME: CHELI HERNANDEZ CONSULTATION DATE OF : 89 REPORT #: [id number] PHYSICIAN: AUSTYN NGUYEN MD PCP: RAMA STOCK MD REPORT IS CONFIDENTIAL AND NOT TO BE RELEASED WITHOUT AUTHORIZATION [facility] [address] [place], [place] [address] Signed PHYSICAL EXAMINATION: VITAL SIGNS: Her blood pressure is 107/74, heart rate is 107, her respiratory rate is 14, temperature is 98.3. She is 100% on room air. She is 5 feet 4 inches, 167 pounds. GENERAL: On exam, Cheli is a 36-year-old female, who is lying supine, sleeping in her ICU bed. She is easily awakened to alert, awake, and interactive. Our nurse is with us. LUNGS: Generally clear to auscultation bilaterally. HEART: Tachycardic. ABDOMEN: Soft. SKIN: She has a large abscess on her upper inner thigh extending up towards the right perirectal abscess. It is harder to clinically delineate the abscess over the area of the coccyx. The wounds were packed with Dakin-soaked gauze. LABORATORY DATA: Her white blood cell count is 8.3, hemoglobin 9.8, mean cell volume 73, neutrophils are 56. Glucose 127, albumin is 2.6. Lactic acid 1.3. Beta-hCG negative. COVID negative. Wound cultures are pending. RADIOGRAPHIC STUDIES: A CT scan of the abdomen and pelvis is reviewed and there appears to be a right perianal abscess with some gauze and a Óscar drain. There is fluid 7 x 2.3 cm up around the coccyx, possibly some osteomyelitis of the coccyx. Also, a large wound coming down on the inner thigh inferiorly about 8.6 x 5.5 cm. ASSESSMENT AND PLAN: Cheli is a 36-year-old female with an ongoing extensive perirectal abscess and possibly osteomyelitis of the coccyx. She has been admitted, given IV fluids, and started on cefepime, Levaquin, and Flagyl. Overall, she does seem improved. Unfortunately, our locum surgeon was very busy yesterday and was not able to get her to the operating room. I did take the time to talk with our burn surgeons at [facility]. They were encouraging, but they have no beds at this time. We will continue our current care and we will have to get Cheli to the operating room sometime today or maybe tomorrow. Austyn Nguyen MD [facility] /[id number] Electronically Signed By: AUSTYN NGUYEN MD 06/08/21 0549 PATIENT NAME: CHELI HERNANDEZ CONSULTATION DATE OF : 89 REPORT #: [id number] PHYSICIAN: AUSTYN NGUYEN MD PCP: RAMA STOCK MD REPORT IS CONFIDENTIAL AND NOT TO BE RELEASED WITHOUT AUTHORIZATION [facility] [address] [place], [place] [address] Signed cc: MD Rama Ocasio MD Copies: AUSTYN NGUYEN MD ~ Electronically Signed By: AUSTYN NGUYEN MD 06/08/21 0549 PATIENT NAME: CHELI HERNANDEZ CONSULTATION DATE OF : 89 REPORT #: [id number] PHYSICIAN: AUSTYN NGUYEN MD PCP: RAMA STOCK MD REPORT IS CONFIDENTIAL AND NOT TO BE RELEASED WITHOUT AUTHORIZATION
--- NOTE | 2021-06-08 07:30 | NUR ---
RECEIVED REPORT AT 0700. PT IN ROOM RESTING AT THIS TIME.
--- NOTE | 2021-06-08 07:45 | NUR ---
Pt sleeping, not awakened.
--- NOTE | 2021-06-08 08:13 | NUR ---
PATIENT AWAKE IN BED, REFUSED GLUCOSE CHECK AND BREAKFAST. PATIENT STATES SHE "DID WHAT EVERYONE WANTED HER TO TO YESTERDAY, AND PAID FOR IT ALL NIGHT LONG" THIS SENIOR ADVISOR TRIED DISCUSSING IMPORTANCE OF GOOD NUTITION FOR THE HEALING OF HER WOUNDS, IN WHICH PATIENT COVERED HER HEAD WITH BLANKETS AND SAID SHE JUST WANTED TO SLEEP. PATIENT IS SIPPING ON WATER. CALL LIGHT AND PERSONAL ITEMS IN EASY REACH.
--- NOTE | 2021-06-08 08:30 | NUR ---
PT HAS REFUSED ALL TREATMENT AND ASSESSMENT THIS MORNING. PT STATED THAT SHE JUST WANTS TO SLEEP. WILL CALL MD NGUYEN WHEN HE IS DONE WITH CURRENT SURGERY. OR-DEPUTY HEAD WILL RELAY MESSAGE TO MD NGUYEN ABOUT PT REFUSING ALL TREATMENT.
--- NOTE | 2021-06-08 09:45 | NUR ---
PT IN ROOM STILL SLEEPING.
--- NOTE | 2021-06-08 10:07 | NUR ---
PT LEFT CCU AT 1005 FOR COLONOSCOPY.
--- NOTE | 2021-06-08 11:15 | NUR ---
PT AT THIS TIME AGREED TO HAVE AN ASSESSMENT DONE AND TO HAVE HER DRESSING CHANGE DONE. ASSESSMENT BESIDES HER WOUNDS/ SKIN IS OVERALL WDL. ALL WOUNDS HAVE YELLOW/ GREEN FOUL ODOROUS DRAINAGE PRESENT. DRESSING CHANGE WAS DONE PER ORDER. LEE ANN AREA OVERALL IS RED SWOLLEN AND INFLAMMED. KISER CARE WAS DONE ALSO.
--- NOTE | 2021-06-08 11:15 | NUR ---
PT AT THIS TIME IS WILLING TO HAVE AN ASSESSMENT DONE AND IS ALSO WILLING TO HER HER BG CHECKED. DRESSING CHANGE ON SACRAL ULCERS DONE PER ORDER. YELLOW GREEN ODOROUS DRAINAGE IS PRESENT. OTHER BODY SYSTEMS ARE WDL. LEE ANN CARE DONE ALSO. V/S WDL OVERALL. WILL CONTINUE TO MONITOR.
--- NOTE | 2021-06-08 11:55 | NUR ---
PATIENT ON BEDPAN FOR SMALL BM. GLUCOSE CHECKED, S/O IN ROOM AT THIS TIME. CALL LIGHT IN EASY REACH
--- NOTE | 2021-06-08 13:25 | NUR ---
JESSICA FIRE LEFT WITH PT AT THIS TIME FOR [facility]. NO NEW CONCERNS WERE NOTED BEFORE PT TRANSFERED.
[2021-06-08] MEDS ORDERED: LOSARTAN POTAS100 MG PO (13:40)
--- NOTE | 2021-06-08 14:14 | NUR ---
REPORT WAS CALLED TO RANDAL RILEY AT [facility] IN [place].
--- NOTE | 2021-06-08 17:10 | DS ---
[facility] [address] [place], [place] [address] Signed ADMISSION DATE: 06/06/2021 DISCHARGE DATE: 06/08/2021 FINAL DIAGNOSES: Extensive worsening perirectal abscess. PROCEDURE: CT scan of abdomen and pelvis. HISTORY OF PRESENT ILLNESS: Cheli is a 36-year-old diabetic female, who developed a rather significant perirectal abscess in March of 2021. This was drained by Dr. Cerna. She eventually had a wound VAC placed and is working with our wound care nurses on an outpatient basis. Eventually she made her way back to the emergency room and had bedside debridement with Dr. Cerna. She continued her wound VAC therapy with our wound care nurses. On evaluation, the wound care nurses felt the abscess was much worse and certainly extending down onto her leg and now she had open skin over the coccyx area. She had therefore been sent over to the emergency room for evaluation in the absence of Dr. Cerna and myself being out of town. HOSPITAL COURSE: Cheli was seen in the emergency room. She had a rather extensive wound as described. She had been admitted and underwent a CT scan of her pelvis. It was extending down on her leg, but also up and around the coccyx and in front of the sacrum. She probably has some level of osteomyelitis of her coccyx. There was also multiple fingers involved and described very difficult to ascertain all of them. She had been admitted by our local surgeon, Dr. Jaylen Roy. She was hydrated and medical service was consulted for help with her diabetes and medical issues. She was started on antibiotics as well. I took over the care a day later. Interestingly, she was not systemically ill or toxic. The wound VAC had been discontinued by Dr. Roy and Dakin-soaked gauze had been initiated. We rapidly discovered the rather extensive nature of the wound. We did send the images down to our [facility]. I reviewed the images with the colorectal surgeon land degradation analyst, Dr. Valero. She had the opportunity to review them with her radiologist. She was quite understanding of the extensive nature of this wound. It looks like it will take a multi-disciplinary approach. She wanted to perform MRI of the pelvis under special protocol for anal fistulas to better define all these areas before taking her to surgery. She asked me not to drain any of the abscess areas if the patient was stable before undergoing the MRI. She preferred that the MRI be done at her institution and not at our small 25-bed critical access hospital. We are in the midst of a COVID pandemic. Consequently, bed space is quite limited including our [facility]. As a result, our charge nurse called around our region and found an opportunity for Electronically Signed By: AUSTYN NGUYEN MD 06/08/21 5010 PATIENT NAME: CHELI HERNANDEZ DISCHARGE SUMMARY DATE OF : 89 REPORT #: [id number] PHYSICIAN: AUSTYN NGUYEN MD PCP: BOZENA STOCK MD REPORT IS CONFIDENTIAL AND NOT TO BE RELEASED WITHOUT AUTHORIZATION [facility] [address] [place] [id number] Signed Cheli at [facility] in [place], [place]. I spoke personally with Dr. Dean Toth at [facility]. He was kind enough to accept her in transfer. We are therefore making those arrangements now per ground transport. I have reviewed this with Cheli and she has expressed understanding and agrees with the above plan. We look forward to input from Dr. Toth and his team. Austyn Nguyen MD [facility] /[id number] cc: MD Dr. Dean العراقي MD Copies: KADEN CERNA MD, ANDREW L MD ~ Electronically Signed By: AUSTYN NGUYEN MD 06/08/21 1710 PATIENT NAME: CHELI HERNANDEZ DISCHARGE SUMMARY DATE OF : 89 REPORT #: [id number] PHYSICIAN: AUSTYN NGUYEN MD PCP: BOZENA STOCK MD REPORT IS CONFIDENTIAL AND NOT TO BE RELEASED WITHOUT AUTHORIZATION
== END 2021-06-08 13:27 | disposition short-term general hospital (02) ==
LOC: ED 15:32 → CCU 15:33
PROVIDERS: ADMIT Surgery; ATTEND Surgery
DX: L89.153 Pressure ulcer of sacral region, stage 3 (principal); K61.1 Rectal abscess; I10 Essential (primary) hypertension; D50.9 Iron deficiency anemia, unspecified; E11.9 Type 2 diabetes mellitus without complications; R33.9 Retention of urine, unspecified; Z88.8 Allergy status to other drugs, medicaments and biological substances; Z79.84 Long term (current) use of oral hypoglycemic drugs; Z20.822 Contact with and (suspected) exposure to COVID-19; G89.4 Chronic pain syndrome
CPT/HCPCS: 36415; 36569; 72193; 74177; 80048; 80053; 83605; 84703; 85025; 87070; 87205; 87493; 96366; 96367; 96375; 96376; A9270-GY; C1751; C9803; G0378; J0692; J1815; J1956; J2405; J7121; Q9967; U0003

== ENCOUNTER 2021-11-04 17:27 | Emergency (ER) | payer OTHER ==
[~2021-11-04] VITALS: Ht 162.6 cm; Wt 68.9 kg
--- OUTSIDE RECORDS SUMMARY | 2021-11-04 17:30 | XMS ---
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 Care History Medical/Surgical 05/25/2021 [facility] Recommendation: - PLEASE REVIEW PDMP ON THE [place]AT[place] - USE EXTREME CAUTION IN GIVING NARCOTICS. - Avoid Discharge Narcotic prescriptions if at all possible. Physician discretion. 12/28/2019 [facility] - [facility] CONTACTED [facility]- [facility]- DISCUSSED URGENT NEED FOR DENTAL FOLLOW UP - PATIENT APT WAS MOVED UP TO Saturday12/30/2019 @ 9:45AM. - [facility] CALLED AND LEFT PATIENT A MESSAGE. - IF PATIENT HAS AN EMERGENCY DENTAL CONCERN - EMERGENCY DENTAL CONTACT NUMBER IS [phone]. 12/21/2019 [facility] - PATIENT HAS AN APT WITH A DENTAL PROVIDER -[facility] 01/05/2020 @ 1: 00PM. E.D. VISIT COUNT ([address] [facility]. TOTAL 4 NOTE: Visits indicate total known visits. ED/UCC VISIT TRACKING (12 MO.) 11/04/2021 17:28 [facility] [place] TYPE: Emergency COMPLAINT: - CHEST PAIN 06/06/2021 15:32 [facility] [place] TYPE: Emergency COMPLAINT: - MULTIPLE COMPLAINTS 05/22/2021 18:19 [facility] [place] TYPE: Emergency COMPLAINT: - WOUND CHECK DIAGNOSES: - Pressure ulcer of sacral region, unspecified stage - intermediate (current) use of insulin - Allergy status to penicillin - Type 2 diabetes mellitus without complications - Other correction (current) drug therapy - Essential (primary) hypertension 05/07/2021 14:09 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 INPATIENT VISIT TRACKING (12 MO.) 06/08/2021 18:12 [facility] TYPE: Surgery DIAGNOSES: - Perirectal abscess, possible osteomyelitis of the sacrum - Rectal abscess 06/06/2021 15:33 [facility] TYPE: Observation COMPLAINT: - NON HEALING SACRAL DECUBITUS ULCER DIAGNOSES: - Type 2 diabetes mellitus without complications - Iron deficiency anemia, unspecified - 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 - Retention of urine, unspecified - Essential (primary) hypertension - Allergy status to other drugs, medicaments and biological substances - Pressure ulcer of sacral region, stage 3 - Rectal abscess - Chronic pain syndrome 04/18/2021 03:48 [facility] TYPE: Medical Surgical COMPLAINT: - SEPSIS,DKA DIAGNOSES: - Iron deficiency anemia secondary to blood loss (chronic) - Allergy status to other drugs, medicaments and biological substances - Type 2 diabetes mellitus with ketoacidosis without coma - Other correction (current) drug therapy - Hypo-osmolality and hyponatremia - Cellulitis of buttock - Other chronic pain - Essential (primary) hypertension - Hypo-osmolality and hyponatremia - Unspecified mood [affective] disorder - OTHER LOW BACK PAIN - Sepsis, unspecified organism - Other ischiorectal abscess - Candidal stomatitis - Anxiety disorder, unspecified - Anxiety disorder, unspecified - Essential (primary) hypertension - Other retention of urine - Candidal stomatitis - intermediate (current) use of oral hypoglycemic drugs - intermediate (current) use of oral hypoglycemic drugs - Cellulitis of buttock - Allergy status to other drugs, medicaments and biological substances - Unspecified mood [affective] disorder - Iron deficiency anemia secondary to blood loss (chronic) - Other retention of urine - Cutaneous abscess of perineum - Other low back pain - Other ischiorectal abscess - Contact with and (suspected) exposure to COVID-19 - Other chronic pain - Cutaneous abscess of perineum - 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
--- NOTE | 2021-11-07 12:55 | EKG ---
[facility] [address] [facility] [place] [address] Signed Normal sinus rhythm Normal ECG When compared with ECG of 18-APR-2021 00:52, T wave inversion no longer evident in Lateral leads Confirmed by CARO SMITH MD ([id number]) on 11/07/2021 12:55:04 PM Electronically Signed By: CARO SMITH MD 11/07/21 1255 PATIENT NAME: HARRIET Electrocardiogram DATE OF : 89 PHYSICIAN: CARO SMITH MD REPORT #: [id number] REPORT IS CONFIDENTIAL AND NOT TO BE RELEASED WITHOUT AUTHORIZATION
== END 2021-11-04 20:42 | disposition left against medical advice (07) ==
LOC: ED 17:27
DX: R07.89 Other chest pain (principal); I10 Essential (primary) hypertension; E11.9 Type 2 diabetes mellitus without complications; Z88.8 Allergy status to other drugs, medicaments and biological substances; Z79.84 Long term (current) use of oral hypoglycemic drugs
CPT/HCPCS: 71045; 80053; 83735; 84484; 85025; 93005; 93010; 99285-25

== ENCOUNTER 2023-02-07 21:45 | Emergency (ER) | payer OTHER ==
[~2023-02-07] VITALS: Ht 162.6 cm; Wt 98.2 kg
[2023-02-07] MEDS ORDERED: NOVOLOG FL100 UNIT/1 SUB-Q (22:27)
[2023-02-07] MEDS ORDERED: NANO 2ND GEN P1 EACH MC (22:27)
[2023-02-07] MEDS ORDERED: INSULIN GL100 UNIT/2 SQ (22:27)
[2023-02-07] MEDS ORDERED: MELOXICAM15 MG PO ×2 (23:21→23:40)
[2023-02-07] MEDS ORDERED: CYCLOBENZAPRINE10 MG PO ×2 (23:21→23:40)
[2023-02-07 23:35] VITALS: BP 174/112
== END 2023-02-07 23:35 | disposition home or self-care (01) ==
LOC: ED 21:45
DX: S93.402A Sprain of unspecified ligament of left ankle, initial encounter (principal); X58.XXXA Exposure to other specified factors, initial encounter; I10 Essential (primary) hypertension; E11.9 Type 2 diabetes mellitus without complications; Z79.4 Long term (current) use of insulin; Z88.8 Allergy status to other drugs, medicaments and biological substances; Z79.899 Other long term (current) drug therapy
CPT/HCPCS: 73610; 84550; 99283-25

== ENCOUNTER 2023-03-01 18:26 | Emergency (ER) | payer OTHER ==
[~2023-03-01] VITALS: Ht 162.6 cm; Wt 98.2 kg
[~2023-03-01 18:26] MED LIST changes: +CYCLOBENZAPRINE10 MG PO; +INSULIN GL100 UNIT/2 SQ; +MELOXICAM15 MG PO; +NANO 2ND GEN P1 EACH MC
--- OUTSIDE RECORDS SUMMARY | 2023-03-01 18:31 | XMS ---
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 - Patient with suicidal and/or homicidal ideations eloped. - Patient eloped with IV in place. Details: PATIENT LEFT AMA. CRITERIA MET - [facility] - 2 Visits in 30 Days CARE PROVIDERS ALAINA GARDNER Internal Medicine: Pulmonary Disease 12/03/2018-Current PHONE: Unknown JEANNA GARCIA [facility] 05/26/2018-Current PHONE: [phone] -[place]- Dentist: Curtain Drier [facility] PHONE: [phone] [facility] - [facility] Current PHONE: Unknown Katie has no Care Guidelines for this patient. Care History Medical/Surgical 05/25/2021 [facility] Care Recommendation: - PLEASE REVIEW PDMP ON THE [place]AT[place] - USE EXTREME CAUTION IN GIVING NARCOTICS. - Avoid Discharge Narcotic prescriptions if at all possible. Physician discretion. 12/28/2019 [facility] - [facility] CONTACTED [facility]- DISCUSSED URGENT NEED FOR DENTAL FOLLOW UP - PATIENT APT WAS MOVED UP TO Saturday12/30/2019 @ 9:45AM. - CHW CALLED AND LEFT PATIENT A MESSAGE. - IF PATIENT HAS AN EMERGENCY DENTAL CONCERN - EMERGENCY DENTAL CONTACT NUMBER IS [phone]. 12/21/2019 [facility] - PATIENT HAS AN APT WITH A DENTAL PROVIDER -[facility] 01/05/2020 @ 1: 00PM. E.D. VISIT COUNT (12 MO.) 2 [facility]. TOTAL 2 NOTE: Visits indicate total known visits. 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
[2023-03-01 20:15] LABS: BASOPHILS 0.6 % (0-2); EOSINOPHILS 2.8 % (0-6); HEMATOCRIT 37.9 % (35.0-50.0); HEMOGLOBIN 12.5 g/dL (12.0-18.0); LYMPHOCYTES 34.3 % (24-44); MCH 27.4 (27-36); MCHC 33.1 g/dl (30-36); MCV 82.6 fl (81-99); MONOCYTES 6.9 % (0-12); NEUTROPHILS 55.4 % (39-80); PLATELET COUNT 338 K/uL (140-440); RBC 4.58 M/ul (4.3-5.7); RDW 12.8 (10.5-15.0)
[2023-03-01] MEDS ORDERED: HYDROCODON-ACE1 EA10 PO (21:16)
[2023-03-01 21:50] VITALS: BP 179/115
== END 2023-03-01 21:50 | disposition home or self-care (01) ==
LOC: ED 18:26
PROVIDERS: Family Medicine
DX: M79.672 Pain in left foot (principal); I10 Essential (primary) hypertension; E11.9 Type 2 diabetes mellitus without complications; Z88.8 Allergy status to other drugs, medicaments and biological substances; Z79.899 Other long term (current) drug therapy; Z79.4 Long term (current) use of insulin
CPT/HCPCS: 36415; 73700; 84550; 85025; 99284-25; A9270; Q9967